=== PATIENT | female | born 2000 | race African-American/Black ===

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

== ENCOUNTER 2021-01-19 13:07 | Outpatient (REF) | payer OTHER, SELFPAY ==
--- NOTE | ~2021-01-19 | CT_ITS ---
EXAMINATION: CT HEAD WITHOUT CONTRAST CLINICAL INFORMATION: Headaches. COMPARISON: None TECHNIQUE: Contiguous axial imaging was performed from the skull base to vertex without intravenous administration of contrast. This CT examination was performed using dose optimization techniques as appropriate, variously including the following: *Automated exposure control *Adjustment of mA and/or kV according to patient size (this includes techniques or standardized protocols for targeted exams where dose is matched to indication/reason for exam; i.e. extremities or head) *Use of iterative reconstruction technique DLP: 735 mGy-cm FINDINGS: There is no evidence of acute intracranial hemorrhage or territorial infarction. No abnormal mass effect or midline shift is seen. Thorpe to white matter differentiation is well preserved. No extra-axial fluid collections are identified. The ventricles are normal in size. There is no abnormal attenuation within the brain parenchyma. The osseous structures and soft tissues are normal. The mastoid air cells and visualized portions of the paranasal sinuses are well aerated. CT/CT head/brain wo con IMPRESSION: No acute intracranial pathology.
== END 2021-01-19 13:08 | disposition home or self-care (01) ==
LOC: HO.CT 13:07
PROVIDERS: Visit Provider Internal Medicine
DX: R51.9 Headache, unspecified (principal); G89.29 Other chronic pain
CPT/HCPCS: 70450

== ENCOUNTER 2021-02-01 10:16 | Outpatient (REF) | payer OTHER, SELFPAY ==
--- NOTE | ~2021-02-01 | FL_ITS ---
EXAMINATION: FL BARIUM SWALLOW CLINICAL INFORMATION: Gastroesophageal reflux disease without esophagitis COMPARISON: None TECHNIQUE: Barium swallow examination is performed using fluoroscopic evaluation in addition to multiple fluoroscopic spot views. The patient is imaged both upright and prone and using both thick and thin sulfate along with effervescent granules. Barium tablet was also administered. Fluoroscopy time: 0.7 minutes DAP: 2.5 Gycm2 Images: 38 FINDINGS: The swallowing mechanism is normal. No aspiration or penetration is seen. Esophageal motility is normal. No hernia or reflux is seen. No mucosal abnormality, mass or stricture is seen. The barium tablet passed freely into the stomach. FL/FL barium swallow IMPRESSION: Normal barium swallow.
== END 2021-02-01 10:17 | disposition home or self-care (01) ==
LOC: HO.XRAY 10:16
PROVIDERS: PCP Internal Medicine; Visit Provider Physician Assistant
DX: K21.9 Gastro-esophageal reflux disease without esophagitis (principal); R13.10 Dysphagia, unspecified
CPT/HCPCS: 74220

== ENCOUNTER 2021-06-22 09:34 | Outpatient (REF) | payer OTHER, SELFPAY ==
[2021-06-22 10:58] LABS: Appearance Urine CLEAR; Color Urine YELLOW; Glucose Urine UA NEG (NEG); Leukocyte Esterase Urine NEG (NEG); Nitrite Urine NEG (NEG); Specific Gravity - Urine 1.025 (1.005-1.025); UACC Culture Trigger NO; Urine Blood TRACE (NEG); Urine Ketones NEG (NEG); Urine Protein NEG (NEG-TRACE)
[2021-06-22 10:59] LABS: Hematocrit 41.3 % (37.0-47.0); Hemoglobin 12.8 g/dl (12.0-16.0); Mean Corpuscular Hemoglobin 27.2 pg (27.0-33.0); Mean Corpuscular Volume 87.7 fL (80.0-98.0); Mean Platelet Volume 10.4 fL (9.4-12.3); Platelet Count 299 X10*3/uL (160-400); Red Blood Count 4.71 X10*6/uL (4.20-5.50); Red Cell Distribution Width 13.1 % (11.0-16.0); White Blood Count 5.6 X10*3/uL (4.8-10.8)
[2021-06-22 11:20] LABS: Bacteria Urine 1+ /LPF; Mucus Urine TRACE /LPF; RBC Urine 0-2 /HPF (0); Squamous Epithelial Cell Urine TRACE /LPF; WBC Urine 0 /HPF (0-4)
[2021-06-22 11:28] LABS: Alanine Aminotransferase 55 U/L (0-31); Albumin Level 4.4 g/dL (3.5-5.0); Alkaline Phosphatase 68 U/L (39-117); Anion Gap 12 (12-20); Aspartate Amino Transferase 25 U/L (5-31); Bilirubin Total 0.4 mg/dL (0.0-1.0); Blood Urea Nitrogen 9 mg/dL (9-16); Calcium 9.7 mg/dL (8.4-10.2); Carbon Dioxide 24 mmol/L (22-29); Chloride 108 mmol/L (96-108); Cholesterol 134 mg/dL; Estimated Glomerular Filt Rate > 60; Glucose Random 93 mg/dL (60-115); Potassium 4.6 mmol/L (3.3-5.1); Sodium 139 mmol/L (135-145); Total Protein 6.9 g/dL (6.5-8.0)
[2021-06-22 11:46] LABS: Erythrocyte Sedimentation Rate 2 MM/HR (0-20); TSH reflex Free T4 1.42 uIU/mL (0.32-4.0); Vitamin D 25-OH Total 17.3 ng/mL (>30)
[2021-06-22 12:02] LABS: Folate 11.5 ng/mL (> or = 4.0); Vitamin B12 704 pg/mL (200-900)
== END 2021-06-22 09:35 | disposition home or self-care (01) ==
LOC: HO.LAB 09:34
PROVIDERS: PCP Internal Medicine; Visit Provider Nurse Practitioner Family
DX: Z00.00 Encounter for general adult medical examination without abnormal findings (principal); R10.9 Unspecified abdominal pain; R13.10 Dysphagia, unspecified; G89.29 Other chronic pain; R51.9 Headache, unspecified
CPT/HCPCS: 36415; 80053; 81001; 82306; 82465; 82607; 82746; 84443; 85027; 85652

== ENCOUNTER 2021-09-11 09:00 | Outpatient (REF) | payer OTHER, SELFPAY ==
--- NOTE | ~2021-09-11 | FL_ITS ---
EXAMINATION: XR GI SERIES CLINICAL INFORMATION: Epigastric pain COMPARISON: Barium swallow January 2021 TECHNIQUE: Upper GI was performed using thin and thick barium and effervescent granules. FINDINGS: Esophageal motility is normal. No hernia or reflux is seen. The stomach and duodenum are normal. No fold thickening, mass, ulcer or stricture is seen. FLUOROSCOPY TIME: 0.7 minutes DOSE AREA PRODUCT: 4.9 patricia per centimeter squared. 26 saved fluoroscopic images. FL/FL upper GI series IMPRESSION: Unremarkable examination.
== END 2021-09-11 09:01 | disposition home or self-care (01) ==
LOC: HO.XRAY 09:00
PROVIDERS: PCP Internal Medicine; Visit Provider Internal Medicine
DX: R10.13 Epigastric pain (principal)
CPT/HCPCS: 74240

== ENCOUNTER → 2021-09-20 12:13 | Outpatient (BNVA) | payer OTHER, SELFPAY | PROVIDERS: PCP Internal Medicine; Visit Provider Physician Assistant | DX: K21.9 Gastro-esophageal reflux disease without esophagitis (principal); K59.00 Constipation, unspecified; K58.9 Irritable bowel syndrome, unspecified | CPT/HCPCS: 99202 ==

== ENCOUNTER 2021-10-02 14:11 | Outpatient (REF) | payer OTHER, SELFPAY ==
[2021-10-02 14:27] LABS: MANUAL DIFF FLAG NO
[2021-10-02 14:54] LABS: Basophils Absolute Auto 0.1 X10*3/uL (0.0-0.2); Basophils Percent Auto 1.3 % (0-2); Eosinophils Absolute Auto 0.1 X10*3/uL (0.0-0.4); Eosinophils Percent Auto 1.9 % (0-4); Hemoglobin 13.8 g/dl (12.0-16.0); Imm Gran Abs Auto 0.01 X10*3/uL (0.00-0.03); Imm Gran Pct Auto 0.2 % (0.0-0.4); Lymphocytes Absolute Auto 2.1 X10*3/uL (1.2-4.9); Lymphocytes Percent Auto 45.8 % (20-40); Mean Corpuscular HGB Conc 32.9 g/dl (31.0-35.0); Mean Corpuscular Hemoglobin 28.2 pg (27.0-33.0); Mean Corpuscular Volume 85.9 fL (80.0-98.0); Mean Platelet Volume 10.6 fL (9.4-12.3); Monocytes Absolute Auto 0.3 X10*3/uL (0.1-1.2); Monocytes Percent Auto 6.7 % (2-11); Neutrophils Percent Auto 44.1 % (45-73); Platelet Count 304 X10*3/uL (160-400); Red Blood Count 4.89 X10*6/uL (4.20-5.50); Red Cell Distribution Width 11.9 % (11.0-16.0); White Blood Count 4.6 X10*3/uL (4.8-10.8)
[2021-10-02 15:05] LABS: Estimated Average Glucose 103 mg/dL; Hemoglobin A1c % 5.2 %
[2021-10-02 15:26] LABS: Anion Gap 12 (12-20); Blood Urea Nitrogen 11 mg/dL (9-16); Calcium 9.9 mg/dL (8.4-10.2); Carbon Dioxide 24 mmol/L (22-29); Chloride 110 mmol/L (96-108); Cholesterol 146 mg/dL; Estimated Glomerular Filt Rate > 60; Glucose Random 95 mg/dL (60-115); HDL Cholesterol 44 mg/dL; LDL Cholesterol Calculated 89 mg/dl; Potassium 4.4 mmol/L (3.3-5.1); Sodium 142 mmol/L (135-145); Triglycerides 66 mg/dL
[2021-10-02 15:42] LABS: Insulin 12 uU/mL (2-29)
[2021-10-04 03:22] LABS: Prolactin 12.9 ng/mL
== END 2021-10-02 14:12 | disposition home or self-care (01) ==
LOC: HO.LAB 14:11
PROVIDERS: Absent Provider Nurse Practitioner Family; PCP Internal Medicine; Visit Provider Registered Nurse Psychiatric/Mental Health
DX: R79.89 Other specified abnormal findings of blood chemistry (principal); Z13.1 Encounter for screening for diabetes mellitus; Z13.220 Encounter for screening for lipoid disorders
CPT/HCPCS: 36415; 80048; 80061; 82306; 83036; 83525; 84146; 85025

== ENCOUNTER → 2021-11-15 13:23 | Outpatient (BNVA) | payer OTHER, SELFPAY | PROVIDERS: PCP Internal Medicine; Visit Provider Physician Assistant | DX: K58.9 Irritable bowel syndrome, unspecified (principal); K59.00 Constipation, unspecified; R79.89 Other specified abnormal findings of blood chemistry | CPT/HCPCS: 99212 ==

== ENCOUNTER 2022-01-25 11:59 | Outpatient (REF) | payer OTHER, SELFPAY ==
[2022-01-25 13:37] LABS: Estimated Average Glucose 100 mg/dL; Hemoglobin A1c % 5.1 %
[2022-01-25 13:46] LABS: Anion Gap 16 (12-20); Blood Urea Nitrogen 12 mg/dL (9-16); Calcium 9.5 mg/dL (8.4-10.2); Carbon Dioxide 20 mmol/L (22-29); Chloride 108 mmol/L (96-108); Cholesterol 138 mg/dL; Estimated Glomerular Filt Rate > 60; Glucose Random 88 mg/dL (60-115); HDL Cholesterol 43 mg/dL; LDL Cholesterol Calculated 84 mg/dl; Potassium 4.7 mmol/L (3.3-5.1); Sodium 139 mmol/L (135-145); Triglycerides 55 mg/dL
[2022-01-25 14:06] LABS: Insulin 5 uU/mL (2-29)
[2022-01-25 17:14] LABS: Alanine Aminotransferase 23 U/L (0-31); Albumin Level 4.5 g/dL (3.5-5.0); Alkaline Phosphatase 84 U/L (39-117); Aspartate Amino Transferase 18 U/L (5-31); Bilirubin Total 0.8 mg/dL (0.0-1.0); Total Protein 7.1 g/dL (6.5-8.0)
[2022-01-27 15:41] LABS: Prolactin 28.7 ng/mL
== END 2022-01-25 12:00 | disposition home or self-care (01) ==
LOC: HO.LAB 11:59
PROVIDERS: Absent Provider Physician Assistant; PCP Internal Medicine; Visit Provider Registered Nurse Psychiatric/Mental Health
DX: F90.2 Attention-deficit hyperactivity disorder, combined type (principal); F41.1 Generalized anxiety disorder; Z79.899 Other long term (current) drug therapy
CPT/HCPCS: 36415; 80048; 80053; 80061; 83036; 83525; 84146

== ENCOUNTER → 2022-02-14 11:59 | Outpatient (BNVA) | payer OTHER, SELFPAY | PROVIDERS: PCP Internal Medicine; Visit Provider Physician Assistant | DX: K58.9 Irritable bowel syndrome, unspecified (principal) | CPT/HCPCS: 99212 ==

== ENCOUNTER 2022-09-11 11:05 | Outpatient (REF) | payer OTHER, SELFPAY ==
[2022-09-11 11:53] LABS: Estimated Average Glucose 97 mg/dL
[2022-09-11 12:09] LABS: Anion Gap 10 (12-20); Blood Urea Nitrogen 8 mg/dL (9-16); Calcium 9.5 mg/dL (8.4-10.2); Carbon Dioxide 23 mmol/L (22-29); Chloride 112 mmol/L (96-108); Estimated Glomerular Filt Rate > 60; Glucose Random 102 mg/dL (60-115); Sodium 141 mmol/L (135-145)
[2022-09-11 12:27] LABS: Insulin 14 uU/mL (2-29)
== END 2022-09-11 11:06 | disposition home or self-care (01) ==
LOC: HO.LAB 11:05
PROVIDERS: PCP Internal Medicine; Visit Provider Registered Nurse Psychiatric/Mental Health
DX: F90.2 Attention-deficit hyperactivity disorder, combined type (principal); F43.10 Post-traumatic stress disorder, unspecified; Z79.899 Other long term (current) drug therapy
CPT/HCPCS: 36415; 80048; 83036; 83525; 84146

== ENCOUNTER 2022-09-13 13:49 | Outpatient (REF) | payer OTHER, SELFPAY ==
[2022-09-13 14:15] LABS: MANUAL DIFF FLAG NO
[2022-09-13 14:30] LABS: Basophils Absolute Auto 0.1 X10*3/uL (0.0-0.2); Basophils Percent Auto 1.1 % (0-2); Eosinophils Absolute Auto 0.1 X10*3/uL (0.0-0.4); Eosinophils Percent Auto 1.8 % (0-4); Hematocrit 40.6 % (37.0-47.0); Hemoglobin 13.1 g/dl (12.0-16.0); Imm Gran Abs Auto 0.02 X10*3/uL (0.00-0.03); Imm Gran Pct Auto 0.4 % (0.0-0.4); Lymphocytes Absolute Auto 1.8 X10*3/uL (1.2-4.9); Lymphocytes Percent Auto 31.4 % (20-40); Mean Corpuscular HGB Conc 32.3 g/dl (31.0-35.0); Mean Corpuscular Hemoglobin 27.9 pg (27.0-33.0); Mean Corpuscular Volume 86.6 fL (80.0-98.0); Mean Platelet Volume 10.3 fL (9.4-12.3); Monocytes Absolute Auto 0.4 X10*3/uL (0.1-1.2); Monocytes Percent Auto 6.3 % (2-11); Neutrophils Absolute Auto 3.4 x10*3/uL (2.0-8.3); Platelet Count 284 X10*3/uL (160-400); Red Blood Count 4.69 X10*6/uL (4.20-5.50); Red Cell Distribution Width 12.1 % (11.0-16.0); White Blood Count 5.7 X10*3/uL (4.8-10.8)
[2022-09-13 14:39] LABS: Appearance Urine Clear; Color Urine Yellow; Glucose Urine UA Negative (Negative); Leukocyte Esterase Urine Negative (Negative); Nitrite Urine Negative (Negative); Specific Gravity - Urine <= 1.005 (1.005-1.025); Urine Blood Negative (Negative); Urine Ketones Negative (Negative); Urine Protein Negative (Neg-Trace)
[2022-09-13 15:12] LABS: Alanine Aminotransferase 26 U/L (0-31); Albumin Level 4.4 g/dL (3.5-5.0); Alkaline Phosphatase 73 U/L (39-117); Anion Gap 14 (12-20); Aspartate Amino Transferase 18 U/L (5-31); Bilirubin Total 0.5 mg/dL (0.0-1.0); Blood Urea Nitrogen 9 mg/dL (9-16); Calcium 9.7 mg/dL (8.4-10.2); Carbon Dioxide 24 mmol/L (22-29); Chloride 107 mmol/L (96-108); Cholesterol 141 mg/dL; Estimated Glomerular Filt Rate > 60; Glucose Fasting 94 mg/dL (60-99); HDL Cholesterol 50 mg/dL; LDL Cholesterol Calculated 82 mg/dl; Potassium 4.5 mmol/L (3.3-5.1); Sodium 140 mmol/L (135-145); Total Protein 7.1 g/dL (6.5-8.0); Triglycerides 45 mg/dL
[2022-09-13 15:28] LABS: TSH reflex Free T4 0.58 uIU/mL (0.32-4.0); Vitamin D 25-OH Total 25.3 ng/mL (>30)
== END 2022-09-13 13:50 | disposition home or self-care (01) ==
LOC: HO.LAB 13:49
PROVIDERS: PCP Internal Medicine; Visit Provider Internal Medicine
DX: Z00.00 Encounter for general adult medical examination without abnormal findings (principal); K59.00 Constipation, unspecified; R30.0 Dysuria; E55.9 Vitamin D deficiency, unspecified; E78.00 Pure hypercholesterolemia, unspecified
CPT/HCPCS: 36415; 80053; 80061; 81003; 82306; 84443; 85025

== ENCOUNTER 2022-11-28 10:54 | Outpatient (AMB) | payer OTHER, SELFPAY ==
[2022-11-28 12:56] VITALS: BP 118/66; PULSE 94; TEMP 37.1; O2SAT 98
--- NOTE | 2022-11-28 12:56 | MHC.OFFWIV ---
Intake Vital Signs 11/28/22 12:56 Weight 65.771 kg BP 118/66 Blood Pressure Location Lt brachial Position Sitting Pulse 94 Pulse Source Pulse Oximeter Temp 98.7 F Temp Source Temporal Artery Scan Pulse Oximetry (%) 98 Oxygen Delivery Method Room Air Intake Visit Reasons: EP, cough, headache, covid +(11/27) [phone] Patient Tobacco Use Status: Never used Tobacco Allergies peanut Allergy (Severe, Verified 09/13/22 13:33) Nausea and Vomiting Seasonal Allergies Allergy (Severe, Verified 09/13/22 13:33) Eye Swelling walnut Allergy (Severe, Verified 09/13/22 13:33) Difficulty Swallowing grass pollen-perennial rye, standar Allergy (Unknown, Verified 09/13/22 13:33) Cough HPI HPI Comments History of Present Illness Details 22-year-old female presents with fatigue, malaise, frontal headache described as tightness (no visual changes or dizziness), dry cough, ear ache, myalgias for the past 2 days, symptoms have been particularly bad these last 5 days, patient reports mother at home is sick with similar symptoms. She reports yesterday she took a COVID test at home which is positive. Patient denies chest pain, nausea, vomiting, abdominal pain, diarrhea, changes in urinary habits, vision changes, dizziness. Eating and drinking well. Vaccinated with vaccine x3 Physical exam benign. Breath sounds clear. Regular rate and rhythm. Abdomen soft nontender nondistended. Neuro exam nonfocal. NIH stroke scale 0 Likely COVID-19 versus viral illness. Unlikely stroke, posterior stroke, pneumonia, PE, ACS, intracranial hemorrhage Discussed paxlovid w/ patient, patient's symptoms mild choosing not to take Requesting inhaler will given inhaler. Educated on supportive measures and CDC guidelines. Educated patient on diagnosis and treatment plan, answered all question, patient verbalizes understanding. At this time patient will be discharged home, advised to return with new or worsening symptoms. Educated on worrisome signs and symptoms and when to return. At this time I feel comfortable discharge home. [facility] Medical History ADHD Allergic rhinitis Attention deficit hyperactivity disorder (ADHD) Elevated LFTs Environmental allergies Migraines Overweight (BMI 25.0-29.9) Schizophrenia Vitamin D deficiency Surgical History History of appendectomy Hx of wisdom tooth extraction Family History Mother No problems noted. Father No problems noted. Social History Housing: House Alcohol intake: never Patient Tobacco Use Status: Never used Tobacco e-Cigarette/Vaping Use: Never Used Second Hand Smoke Exposure: Yes service: No Current occupational status: student Cognitive needs: No Hearing needs: No Vision needs: Yes Review of Systems Const Details: Constitutional : No Weight loss, No Fever, No Chills, + Fatigue, + Malaise ENT/Mouth : No sore throat, No Rhinorrhea Eyes: No Eye Pain, No Swelling, No Redness Cardiovascular : No Chest Pain, No SOB, No Dyspnea on Exertion, No Orthopnea, No Edema, No Palpitations Respiratory : + Cough, No Sputum, No Wheezing Gastrointestinal : No Nausea, No Vomiting, No Diarrhea, No Constipation, No abdominal Pain, No Hematochezia, No Melena Genitourinary : No Dysuria, No Urinary Frequency, No Hematuria, Musculoskeletal : No joint pain, No Myalgias, No Joint Swelling Skin : No Skin Lesions, No rash Neuro : No Weakness, No Numbness, No Dizziness, + Headache Psych : No Anxiety/Panic, No Depression All other systems reviewed and are negative All systems reviewed & are unremarkable except as noted in HPI and below Physical Exam Vital Signs: Last Vital Signs Temp 98.7 F 11/28/22 12:56 Pulse 94 11/28/22 12:56 BP 118/66 11/28/22 12:56 Pulse Ox 98 11/28/22 12:56 Oxygen Delivery Method Room Air 11/28/22 12:56 Vital signs stable Appearance: Alert.? Oriented X3.? No acute distress.? Head: Normocephalic, atraumatic, no step-offs or deformities Eyes: Pupils equal, round and reactive to light.? CVS: Normal heart rate and rhythm.? Pulses normal.? Respiratory: No respiratory distress.? Breath sounds normal.? Abdomen: Soft and nontender.? Skin: Skin warm and dry.? Normal skin color.? Normal skin turgor.? Extremities: No lower extremity edema.? No calf ttp. 5/5 strength to bilateral upper and lower extremities Neuro: Oriented X 3.? No motor deficit.? No sensory deficit. CN 2-12 intact Assessment & Plan Assessment & Plan (1) COVID-19: Code(s): U07.1 - COVID-19 Plan Take your medications as prescribed. If you were prescribed antibiotics today, it is important that you take your medication to their entirety, do not skip any doses, do not finish them early. Today you tested positive for COVID-19. Take Ibuprofen or Tylenol as needed for fevers or body aches. Quarantine for 5 days and ensure you wear a mask. After 5 days you should wear a mask for 5 days after that. Practice social distancing and good hand hygiene. Drink plenty of fluids. Follow-up with your primary care provider this week. Return to the emergency department with new or worsening symptoms. In case of emergency call 911 You can purchase a pulse oximeter from your local pharmacy or grocery store, and monitor your oxygen saturation if it goes below 94% you should return to the emergency department for further evaluation. Coding Level of Care Code Est Pt Level 3 (21961) Diagnoses COVID-19 U07.1
== END 2022-11-28 14:06 | disposition home or self-care (01) ==
PROVIDERS: PCP Internal Medicine; Visit Provider Physician Assistant
DX: U07.1 COVID-19 (principal)
CPT/HCPCS: 99213

== ENCOUNTER 2023-01-24 15:04 | Outpatient (AMB) | payer OTHER, SELFPAY ==
[2023-01-24 15:08] VITALS: BP 110/60; BMI 25.2
--- NOTE | 2023-01-24 15:08 | A.OFFVIS_ITS ---
Intake Vital Signs 01/24/23 15:08 Height 5 ft 3 in Weight 142 lb BMI 25.2 BP 110/60 Intake Visit Reasons: New patient Irregular menses Project Account Manager Required: No Information Interpreted: clinical only Spool Sander: Spool Sander Present Allergies peanut Allergy (Severe, Verified 01/24/23 15:10) Nausea and Vomiting Seasonal Allergies Allergy (Severe, Verified 01/24/23 15:10) Eye Swelling walnut Allergy (Severe, Verified 01/24/23 15:10) Difficulty Swallowing grass pollen-perennial rye, standar Allergy (Unknown, Verified 01/24/23 15:10) Cough Medication List - Last Reconciled 01/24/23 by Deysi Dobbs CNM azelastine 0.05% 1 drp ophthalmic (eye) BID PRN cetirizine 10 mg PO DAILY clonidine HCl 0.2 mg PO BEDTIME dexmethylphenidate ER (Focalin XR) 10 mg PO DAILY diazepam 2 mg PO ONCE PRN etonogestrel (Nexplanon) subdermal famotidine 20 mg PO BEDTIME 30 days fluticasone propionate 50 mcg/actuation 0 mcg intranasal methylcellulose (laxative) (Citrucel) 500 mg PO BID 30 days norgestrel-ethinyl estradiol 0.3-30 mg-mcg (Low-Ogestrel (28)) 1 tab PO DAILY olanzapine 7.5 mg PO BEDTIME omeprazole 40 mg PO DAILY 30 days simethicone (Gas Relief (simethicone)) 80 mg PO TID-QID PRN topiramate 25 mg PO BEDTIME Is last menstrual period known: Yes (last, period start 12/12/22 & stop 01/06/23) Last menstrual period: 12/12/22 Post menopausal: No Do you need a note to return to daycare/school/sports/work: No HPI New patient Irregular menses HPI Details Patient is here because she had had some irregular bleeding that started in December and was lasting through the beginning of January. She has her 2nd Nexplanon in that was inserted last year and she has been bleeding a lot with this Nexplanon it was inserted it [facility]. She went straight from 1 Nexplanon to the next 1. She had an appointment he scheduled she says in December for a Pap smear but it got rescheduled and she tells me at the end of the visit that is somehow she thought that is what this appointment was going to before but initially we talked about the bleeding that she was having on the Nexplanon. She ended up going to [facility] and they gave her control pills and told her to take 2 packs of them but to skip the placebo pills at the end of the 1st pack and go straight from 1 pack to the next. She did get migraines when she started taking the pills and she called her neurologist and he said that it was okay for her to take them. She says that the bleeding stopped after taking the pills for a week. She is now completed 2 weeks of pills and she she is probably going to continue to take them for the full 6 weeks as recommended by [facility]. Discussed that since she has not actually scheduled for an annual exam today and that was not what was planned I described for her what I would be doing for an annual exam and testing that she would need to have both Pap smear and checking for STDs and discussed the rest a the exam and she does not have any further questions now but will schedule the next exam as an annual exam and I wrote it clearly on the piece of paper. Discussed that had she come here we would probably have given her a pack of control pills just as [facility] did and that I concur with their management, though I might have only given the 1 pack. [facility] Medical History Vitamin D deficiency Overweight (BMI 25.0-29.9) Attention deficit hyperactivity disorder (ADHD) Allergic rhinitis Environmental allergies Schizophrenia ADHD Elevated LFTs Migraines Surgical History Hx of wisdom tooth extraction History of appendectomy Family History Mother No problems noted. Father No problems noted. Social History Housing: House Alcohol intake: never Patient Tobacco Use Status: Never used Tobacco e-Cigarette/Vaping Use: Never Used Second Hand Smoke Exposure: Yes service: No Current occupational status: student Cognitive needs: No Hearing needs: No Vision needs: Yes Female Reproductive History Menstrual Date of last menstrual period: 12/12/22 control method: implanted (nexplanon) Physical Exam Vital Signs: Last Vital Signs BP 110/60 01/24/23 15:08 BMI result Body Mass Index 25.2 Const Other: In frame normotensive Nexplanon easily palpable in left arm. Results AMB Test Urine AMB Test Urine Negative Last Edit by Manuel Quesada CMA on 01/24/23 15:25 Results Reviewed Results Reviewed: Laboratory Last Values [facility] Negative 01/24/23 15:24 Assessment & Plan Assessment & Plan (1) Irregular menstrual cycle: Code(s): N92.6 - Irregular menstruation, unspecified (2) Breakthrough bleeding on Nexplanon: Code(s): N92.1 - Excessive and frequent menstruation with irregular cycle; Z97.5 - Presence of (intrauterine) contraceptive device Plan Patient is here because she had had some irregular bleeding that started in December and was lasting through the beginning of January. She has her 2nd Nexplanon in that was inserted last year and she has been bleeding a lot with this Nexplanon it was inserted it [facility]. She went straight from 1 Nexplanon to the next 1. She had an appointment he scheduled she says in December for a Pap smear but it got rescheduled and she tells me at the end of the visit that is somehow she thought that is what this appointment was going to before but initially we talked about the bleeding that she was having on the Nexplanon. She ended up going to [facility] and they gave her control pills and told her to take 2 packs of them but to skip the placebo pills at the end of the 1st pack and go straight from 1 pack to the next. She did get migraines when she started taking the pills and she called her neurologist and he said that it was okay for her to take them. She says that the bleeding stopped after taking the pills for a week. She is now completed 2 weeks of pills and she she is probably going to continue to take them for the full 6 weeks as recommended by [facility]. Discussed that since she has not actually scheduled for an annual exam today and that was not what was planned I described for her what I would be doing for an annual exam and testing that she would need to have both Pap smear and checking for STDs and discussed the rest a the exam and she does not have any further questions now but will schedule the next exam as an annual exam and I wrote it clearly on the piece of paper. Discussed that had she come here we would probably have given her a pack of control pills just as [facility] did and that I concur with their management, though I might have only given the 1 pack. Orders: Orders AMB HCG Urine Test Today N92.6 - Irregular menstruation, unspecified Coding Level of Care Code New Pt Level 3 (26784) Diagnoses Irregular menstrual cycle N92.6 Breakthrough bleeding on Nexplanon N92.1; Z97.5
== END 2023-01-24 15:44 | disposition home or self-care (01) ==
PROVIDERS: PCP Internal Medicine; Visit Provider Advanced Practice Midwife
DX: N92.6 Irregular menstruation, unspecified (principal); Z97.5 Presence of (intrauterine) contraceptive device
CPT/HCPCS: 99203

== ENCOUNTER → 2023-01-24 15:04 | Outpatient (BNVA) | payer OTHER, SELFPAY | PROVIDERS: PCP Internal Medicine; Visit Provider Advanced Practice Midwife | DX: N92.6 Irregular menstruation, unspecified (principal); G43.109 Migraine with aura, not intractable, without status migrainosus; Z97.5 Presence of (intrauterine) contraceptive device | CPT/HCPCS: 81025 ==

== ENCOUNTER 2023-05-13 09:17 | Outpatient (AMB) | payer OTHER, SELFPAY ==
[2023-05-13 09:21] VITALS: BP 100/60; BMI 25.3
--- NOTE | 2023-05-13 09:21 | A.OFFVIS_ITS ---
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: Insurance Sales Manager Present Allergies peanut Allergy (Severe, Verified 05/13/23 09:21) Nausea and Vomiting Seasonal Allergies Allergy (Severe, Verified 05/13/23 09:21) Eye Swelling walnut Allergy (Severe, Verified 05/13/23 09:21) Difficulty Swallowing grass pollen-perennial rye, standar Allergy (Unknown, Verified 05/13/23 09:21) Cough Medication List - Last Reconciled 05/13/23 by Deysi Dobbs CNM azelastine 0.05% 1 drp ophthalmic (eye) BID PRN cetirizine 10 mg PO DAILY clonidine HCl 0.2 mg PO BEDTIME dexmethylphenidate ER (Focalin XR) 10 mg PO DAILY diazepam 2 mg PO ONCE PRN famotidine 20 mg PO BEDTIME 30 days fluticasone propionate 50 mcg/actuation 0 mcg intranasal methylcellulose (laxative) (Citrucel) 500 mg PO BID 30 days olanzapine 7.5 mg PO BEDTIME omeprazole 40 mg PO DAILY 30 days topiramate 25 mg PO BEDTIME Is last menstrual period known: Yes Last menstrual period: 05/05/23 Do you need a note to return to daycare/school/sports/work: No 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 She is 22 years old she is illness stable monogamous relationship. She was having a lot of breakthrough bleeding on the Nexplanon and she was given control pills to take for 2 months and as soon as she finished with them the bleeding started again this management was through [facility] though she also paid a visit here. So she returned to [facility] and they remove the Nexplanon it was her 2nd Nexplanon she is for now using condoms and she seems to be doing well with them she had been on the Nexplanon since she was 18 and she thinks she got her 1st period on the it ended on the . It was pretty uncomfortable and crampy and it felt like a real period to her. She is about to graduate from college and she is has been studying in the [employer] field and is looking for a job. If she got she probably would have the baby though she does not feel personally ready to have a baby right now she has a supportive environment around her. She knows that she could not have an . She says her partner is very good about using condoms as well. [facility] Medical History Vitamin D deficiency Overweight (BMI 25.0-29.9) Attention deficit hyperactivity disorder (ADHD) Allergic rhinitis Environmental allergies Schizophrenia ADHD Elevated LFTs Migraines Surgical History Hx of wisdom tooth extraction History of appendectomy Family History Mother No problems noted. Father No problems noted. Social History Housing: House Alcohol intake: never Patient Tobacco Use Status: Never used Tobacco e-Cigarette/Vaping Use: Never Used Second Hand Smoke Exposure: Yes service: No Current occupational status: student Cognitive needs: No Hearing needs: No Vision needs: Yes Female Reproductive History Menstrual Age of Menarche: 12 Duration of menses: 6-7 days Date of last menstrual period: 05/05/23 control method: none Total pregnancies: 0 History of abnormal pap smear: No (no previous pap) Physical Exam Vital Signs: Last Vital Signs BP 100/60 05/13/23 09:21 BMI result Body Mass Index 25.3 Const General: healthy appearing, comfortable, no acute distress, well developed and alert Nutritional Appearance: average body habitus Orientation/consciousness: patient oriented x3 Limitations: no limitations HEENT Head: Yes normocephalic Neck Neck: Yes normal visual inspection Chest Chest palpation & inspection: normal inspection of the chest Breast/axilla inspection: normal inspection of the breasts and normal inspection of the axillae Breast/axilla palpation: normal palpation of the breasts and normal palpation of the axillae Resp Effort & Inspection: normal respiratory effort GI Inspection: Yes normal to inspection, No Abdominal wall edema and No distended Palpation (GI): Soft to palpation and nontender Other: External exam completely within normal limits vagina pink and moist nulliparous cervix is perfectly pink smooth round healthy nonfriable no abnormal discharge whatsoever uterus is small midposition nontender adnexa nontender good tone with Kegel.. General: Yes bladder normal to palpation External Female Exam: normal external appearance and normal appearance of the urethra Speculum Exam - Vagina: normal appearance of the vagina, normal palpation and normal vaginal discharge Speculum Exam - Cervix: normal appearance of the cervix, normal palpation and nontender Bimanual exam- vagina & uterus: normal bimanual exam, normal palpation, uterine size normal, bladder normal to palpation, consistency normal, normal palpation, uterine mobility normal, uterine shape normal, No Cervical tenderness present, non-tender and no cervical motion tenderness Bimanual Exam- Adnexa, other: normal adnexae, no masses, normal and No adnexal tenderness Neuro General: patient oriented x3 Assessment & Plan Assessment & Plan (1) Cervical cancer screening: Code(s): Z12.4 - Encounter for screening for malignant neoplasm of cervix (2) Well woman exam with routine gynecological exam: Code(s): Z01.419 - Encounter for gynecological examination (general) (routine) without abnormal findings (3) Encounter for screening examination for sexually transmitted disease: Code(s): Z11.3 - Encounter for screening for infections with a predominantly sexual mode of transmission (4) control counseling: Code(s): Z30.09 - Encounter for other general counseling and advice on contraception Plan -----Discussed in this visit the following: healthy balanced diet, regular and consistent exercise, getting recommended health screens, doing the best she can for her particular health concerns, kegel exercises, pap smear screening and followup recommendations, mammography screening and SBE, normal changes in cycles in her life stage--- .----I reviewed available options for Control Methods and their associated side effect profiles. In particular, we discussed the method most of interest to her. I reviewed with her the usual components of a pelvic exam.? I explained the tool called the speculum and how it is used to help us see her cervix and check for infections with Q-tips, that we then send to the lab in tubes, and also how we do a Pap smear and what that is checking for.? Discussed the reasons for doing these tests.? Also discussed how infections are transmitted from 1 person to another, but also how some infections can just be an imbalance in a bacteria or fungus in the vagina as and that the exam is a way to tell what is going on.? Also discussed reasons why somebody might not need to have an exam at this particular time.? Also discussed what we check for when we are doing a bimanual exam, (checking ovaries and cervix and uterus, and muscles).? I showed her the speculum and offered a mirror so that she can watch during the exam as well. Discussed relaxing during the exam, and that while it may be a little bit uncomfortable, as it is invasive, but that it should not hurt, and if she feels like it is hurting, then that that is a reason to stop if she does not feel comfortable.? Discussed that while doing these exams are necessary to help figure things out, and also to do some screening tests at certain important times, they are not always necessary and do not always have to be done just because they are scheduled.? First Pap smear would be at age 22, and testing for sexually transmitted infection and should occur any time somebody is at risk for having been exposed.? Any time someone has itching, burning, a bad smell, or some other concern about their vaginal area, is a time to be checked as well. In the end, having a vaginal or speculum exam is a method of checking the most private and sensitive part of a Women's body and it should always be done with the woman herself in full control. Discussed the normal menstrual cycles, in terms of length of time for each part of the cycle, range of experiences for bleeding/periods, cramping and clots and the various ways of handling all of these including the various menstrual products available today and common use of non inflammatory medications such as ibuprofen to help with the cramping, and changes in vaginal and cervical discharge that occur throughout the changes in the menstrual cycle. Also discussed what is happening in the ovaries, with preparing to ovulate, ovulation, and what happens afterward as well. Discussed signs of ovulation including fertile appearing mucus, libido changes, breast changes, ovulatory pain and twinges, and the optimal /most risky times to become . Reviewed that menstrual cycles do not obey the printed calendar, but rather follow the body's own cycle discussed what can sometimes happen if the cycle is interrupted by other health events such as anovulatory cycles. Discussed other metabolic changes that have a very profound effect on menstrual cycles including weight and the increased hormones that occur in that setting. Discussed signals of ovulation and being aware of what is going on in her cycle to boost her own control of her own fertility as much as possible in terms of decision making. For now she is happy using condoms and discussed the challenges and possible use of plan B should 1 break or fall off. The patient is also wondering if she needs to return I reviewed the reasons for annual exams and what we do and that we would discuss many of these same topics again and offer testing for STIs and control method discussion if she needed that. However since she is also attending care at [facility] where the [facility] care is offered she can make her choice to go to 1 or the other and she does not need to duplicate care if she does not wish to. Additionally she would not be due for another Pap smear for 3 years if this 1 is normal and she is going to double check about her immunization records. I wished her luck in her job [employer]. We may see her in 1 year or p.r.n. Pap smear was done testing for gonorrhea chlamydia trichomoniasis Gardnerella and Temitope was done. Patient did not feel she needed to get other blood work for other STDs such as HIV hep B hep C and syphilis. Coding Level of Care Code Est Pt Prev Care [id number]) Diagnoses Cervical cancer screening Z12.4 Well woman exam with routine gynecological exam Z01.419 Encounter for screening examination for sexually transmitted disease Z11.3 control counseling Z30.09
== END 2023-05-13 10:06 | disposition home or self-care (01) ==
LOC: HO.HWSM 09:17
PROVIDERS: PCP Internal Medicine; Visit Provider Advanced Practice Midwife
DX: Z12.4 Encounter for screening for malignant neoplasm of cervix (principal); Z01.419 Encounter for gynecological examination (general) (routine) without abnormal findings; Z11.3 Encounter for screening for infections with a predominantly sexual mode of transmission; Z30.09 Encounter for other general counseling and advice on contraception
CPT/HCPCS: 99395

== ENCOUNTER 2023-05-13 09:17 | Outpatient (REF) | payer OTHER, SELFPAY ==
[2023-05-14 11:09] LABS: CT PCR NOT DETECTED (Not Detect.); NG PCR NOT DETECTED (Not Detect.)
[2023-05-14 13:41] LABS: BV Int Neg Control Negative (Negative); BV Int Pos Control Positive (Positive)
== END 2023-05-13 09:18 | disposition home or self-care (01) ==
LOC: HO.LAB 09:17
PROVIDERS: PCP Internal Medicine; Visit Provider Advanced Practice Midwife
DX: Z01.419 Encounter for gynecological examination (general) (routine) without abnormal findings (principal); Z20.2 Contact with and (suspected) exposure to infections with a predominantly sexual mode of transmission
CPT/HCPCS: 0353U; 87480; 87510; 87660; 88142; 99395

== ENCOUNTER 2023-09-15 17:29 | Outpatient (AMB) | payer OTHER, SELFPAY ==
[2023-09-15 17:32] VITALS: BP 132/60; PULSE 97; O2SAT 99; BMI 26.3
--- NOTE | 2023-09-15 17:32 | A.OFFPC_ITS ---
Vital Signs 09/15/23 17:32 Height 5 ft 3 in Weight 148 lb 4 oz BMI 26.3 BP 132/60 Blood Pressure Location Lt brachial Position Sitting Pulse 97 Pulse Source Pulse Oximeter Pulse Oximetry (%) 99 Oxygen Delivery Method Room Air Intake Visit Reasons: Annual physical Intake Note: Patient is here today for a physical. 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 Accompanied by: Self / Same As Patient Allergies peanut Allergy (Severe, Verified 09/15/23 17:48) Nausea and Vomiting Seasonal Allergies Allergy (Severe, Verified 09/15/23 17:48) Eye Swelling walnut Allergy (Severe, Verified 09/15/23 17:48) Difficulty Swallowing grass pollen-perennial rye, standar Allergy (Unknown, Verified 09/15/23 17:48) Cough Medication List - Last Reconciled 09/15/23 by Tobias Quinteros MD azelastine 0.05% 1 drp ophthalmic (eye) BID PRN cetirizine 10 mg PO DAILY clonidine HCl 0.2 mg PO BEDTIME dexmethylphenidate ER (Focalin XR) 10 mg PO DAILY diazepam 2 mg PO ONCE PRN famotidine 20 mg PO BEDTIME 30 days fluticasone propionate 50 mcg/actuation 0 mcg intranasal olanzapine 7.5 mg PO BEDTIME omeprazole 40 mg PO DAILY 30 days topiramate 25 mg PO BEDTIME Tobacco use date assessed: 09/15/23 Dental Screening Dental Screen Date: 09/15/23 Did you have a dental visit in the last 12 months?: No Did you have a dental problem in the last 6 months where you did not have access to dental care?: No Was dental information given to patient?: Patient has dentist HPI Annual physical HPI Details Patient comes in today for her annual physical examination States that she feels okay States that she has been experiencing recurrent headaches for the past couple of months ever since she had her Depo Provera injection recently - states that her contraceptive has since been changed Relates that her Topiramate dosage was increased from 25 to 50 mg Q HS by neurology a couple of months ago to help relieve her headaches but relates that she has been experiencing frequent dizziness since She was just seen by neurology earlier today for follow up and her Topiramate dosage was decreased back to 25 mg Q HS by neurology She denies any chest pains, no SOB No nausea/vomiting, no abdominal pain No change in bowel habits noted She denies any acute urinary symptoms States that her mood disorder and attention deficit remain adequately controlled on her current Rx - she continues to follow up with her psychiatrist regularly She is up-to-date with her annual pap smear and gynecology exam - these were last done in May 2023 [facility] Medical History Vitamin D deficiency Overweight (BMI 25.0-29.9) Attention deficit hyperactivity disorder (ADHD) Allergic rhinitis Environmental allergies Schizophrenia ADHD Elevated LFTs Migraines Surgical History Hx of wisdom tooth extraction History of appendectomy Family History Mother No problems noted. Father No problems noted. Social History Housing: House Alcohol intake: never Patient Tobacco Use Status: Never used Tobacco e-Cigarette/Vaping Use: Never Used Second Hand Smoke Exposure: Yes Substance Use Type: Marijuana service: No Current occupational status: student Cognitive needs: No Hearing needs: No Vision needs: Yes Female Reproductive History Menstrual Age of Menarche: 12 Questionnaire PHQ-9 Over the last 2 weeks, how often have you been bothered by any of the following problems? 1. Little interest or pleasure in doing things: more than half the days 2. Feeling down, depressed, or hopeless: more than half the days 3. Trouble falling or staying asleep, or sleeping too much: nearly every day 4. Feeling tired or having little energy: nearly every day 5. Poor appetite or overeating: several days 6. Feeling bad about yourself - or that you are a failure or have let yourself or your family down: several days 7. Trouble concentrating on things, such as reading the newspaper or watching television: nearly every day 8. Moving or speaking so slowly that other people could have noticed. Or the opposite - being so fidgety or restless that you have been moving around a lot more than usual: several days 9. Thoughts that you would be better off or of hurting yourself in some way: several days Total score: 17 Depression Screening Interpretation: Positive Depression Screening Follow-up: Existing condition and In treatment Depression Screening Done: Yes 07060 - PHQ-9 Billing: Yes Source: Developed by Drs. Gus Sandoval, Aurelia Rice, Balaji Mason and colleagues, with an educational shoaib from [employer]. Thrive Questionnaire Date Thrive assessed: 09/15/23 I am a: Patient What is your living situation today?: I have a steady place to live Within the past 12 months, did the food you bought not last and you didn't have the money to get more?: Never true Within the past 12 months, did you worry whether your food would run out before you got money to buy more?: Never true Do you have trouble paying for medicines?: No Do you have trouble paying your heating and electricity bill?: No Do you have trouble taking care of your child, family member or friend?: No Do you have trouble with day-to-day activities such as bathing, preparing meals, shopping, managing finances, etc.?: No Are you currently unemployed and looking for a job?: No Are you interested in more education?: No Please select the resources that you would like help with: None Currently or been in a relationship where the following occur: no concerns reported THRIVE Score: 0 AUDIT C Alcohol Use Questionnaire (AUDIT-C) 1. How often do you have a drink containing alcohol?: 2-4 times a month 2. How many drinks containing alcohol do you have on a typical day when you are drinking?: 5 or 6 3. How often do you have six or more drinks on one occasion?: Never Total Score: 4 Score Reviewed/Action Taken: Yes KANE-7 AMB Questionnaire KANE-7 Date KANE - 7 assessed: 09/15/23 Feeling nervous, anxious, or on edge: 3 = Nearly every day Not being able to stop or control worryin = Nearly every day Worrying too much about different things: 3 = Nearly every day Trouble relaxin = Nearly every day Being so restless that it is hard to sit still: 2 = More than half the days Becoming easily annoyed or irritable: 3 = Nearly every day Feeling afraid as if something awful might happen: 2 = More than half the days Total KANE-7 score (0-4 normal; 5-9 mild; 10-14 moderate; 15-21 severe): 19 Source: Developed by Drs. Gus Sandoval, Aurelia Rice, Balaji Mason and colleagues, with an educational shoaib from [employer]. KANE-7 Assessment Billing KANE-7 Assessment Tool: KANE-7 Assessment 67819 Review of Systems Const Denies chills, Reports difficulty sleeping (at times), Denies fatigue, Denies fever(s), Reports headache(s) (recurrent - see HPI) and Denies malaise Eyes Denies blurry vision, Denies change in vision, Denies irritation and Denies itchy eyes ENT Denies dysphagia, Reports dizziness (on and off lately), Denies otalgia, Reports headache(s) (recurrent - see HPI), Denies nasal congestion, Denies neck pain, Denies odynophagia, Denies sinus pain and Denies sore throat Card Denies chest pain, Denies rapid heart rate, Denies irregular heart rhythm, Denies palpitations and Denies dyspnea Resp Denies chest congestion, Denies cough, Denies dyspnea and Denies wheezing GI Denies abdominal pain, Denies bloating, Reports constipation (on and off), Denie s dysphagia, Denies heartburn, Denies diarrhea, Denies nausea, Denies odynophagia and Denies vomiting Denies hematuria, Denies urinary frequency, Denies dysuria, Denies urinary incontinence and Denies urinary urgency Musc Denies back pain, Denies arthralgias, Denies joint swelling, Denies muscle weakness and Denies neck pain Skin/Breast Denies breast pain, Denies breast mass, Denies change in pigmentation, Denies lesions, Denies rash and Denies unusual bruising Neuro Reports dizziness (on and off lately), Reports headache(s) (recurrent - see HPI) and Denies paresthesias Psych Denies anxiety, Reports depression (controlled on Rx), Denies auditory hallucinations and Denies visual hallucinations Endo Denies fatigue and Denies palpitations Aquilino/Lymph Denies easy bruising Aller/Immun Denies itchy eyes and Denies wheezing Physical exam (Primary Care) Vital Signs: Last Vital Signs Pulse 97 09/15/23 17:32 BP 132/60 09/15/23 17:32 Pulse Ox 99 09/15/23 17:32 Oxygen Delivery Method Room Air 09/15/23 17:32 BMI result Body Mass Index 26.3 Tobacco/Smoking Status: Tobacco use Status Tobacco use date assessed 09/15/23 09/15/23 17:41 Patient Tobacco Use Status Never used Tobacco 09/15/23 17:41 e-Cigarette/Vaping Use Never Used 09/15/23 17:41 PHQ-9: PHQ-9 Score PHQ-9: Total score 17 09/15/23 17:50 Depression Screening Interpretation: Positive Depression Screening Follow-up: Existing condition and In treatment Thrive Assessment: Date of Thrive Assessment Date Thrive assessed 09/15/23 09/15/23 17:41 Currently or been in a relationship where the following occur: no concerns reported Const General: no acute distress, alert and awake Orientation/consciousness: patient oriented x3 HENMT Head: Yes normocephalic and Yes atraumatic Ears: external ears normal, TM's normal bilaterally and EAC's normal General nose exam: No nasal discharge present Face and sinus: Yes normal facial exam and Yes sinuses nontender Teeth and gingiva: dentition normal Throat: Yes posterior oropharynx normal and Yes tonsils normal (no TP congestion) Eyes Eyelids: Yes eyelids normal Conjunctivae: conjunctivae normal Pupils: Equal, round and reactive pupils present EOM: EOMs intact bilaterally Neck Neck: Yes no lymphadenopathy and Yes supple Thyroid: Thyroid normal Resp Auscultation: clear to auscultation bilaterally, no rales and no wheezes Cardio Rate: regular rate Rhythm: regular rhythm Heart sounds: no murmurs GI Palpation (GI): Soft to palpation, nontender and No hepatosplenomegaly present Auscultation: normal bowel sounds General: Yes no CVA tenderness Back/Spine/Pelvis Back: no CVA tenderness Thoracic/Lumbar Spine: thoracic and lumbar spine normal to inspection Skin Lesions: no lesions Rashes: no rashes Neuro General: patient oriented x3, moves all extremities, no focal motor deficits and CN's II-XI intact bilaterally Cranial nerves: Yes Equal, round and reactive pupils present Cognition (Neuro): normal cognition Gait exam (Neuro): Normal gait present Extrem General: Yes no clubbing, cyanosis or edema Assessment and Plan Assessment & Plan (1) Annual physical exam: Code(s): Z00.00 - Encounter for general adult medical examination without abnormal findings Plan: Check labs She is up-to-date with her annual gynecology exam and pap smear (2) Migraines: Code(s): G43.909 - Migraine, unspecified, not intractable, without status migrainosus Qualifiers: Intractability: not intractable Migraine type: without aura Status migrainosus presence: without status migrainosus Qualified Code(s): G43.009 - Migraine without aura, not intractable, without status migrainosus Plan: Head CT done in January 2021 came out normal Headaches have improved with prophylactic Rx (Topiramate 25 mg Q HS) for a while although her headaches appear to have progressed a few months ago and her Topiramate was increased to 50 mg Q HS by neurology She however started experiencing recurrent dizziness since and her Topiramate was lowered back to 25 mg Q HS by neurology earlier today Patient also takes Sumatriptan 50 mg PRN for headaches Reinforced avoidance of potential migraine triggers Follow up with neurology as scheduled (3) GERD (gastroesophageal reflux disease): Code(s): K21.9 - Gastro-esophageal reflux disease without esophagitis Qualifiers: Esophagitis presence: without esophagitis Qualified Code(s): K21.9 - Gastro-esophageal reflux disease without esophagitis Plan: Dietary restrictions reinforced Continue Omeprazole 40 mg QD and Famotidine 20 mg Q HS Her upper GI series and barium swallow done over the past couple of years were both normal Follow up with GI as scheduled (4) Vitamin D deficiency: Code(s): E55.9 - Vitamin D deficiency, unspecified Plan: Continue Vitamin D3 2000 units QD Will recheck her Vitamin D level for follow up (5) Allergic rhinitis: Code(s): J30.9 - Allergic rhinitis, unspecified Qualifiers: Allergic rhinitis seasonality: seasonal Allergic rhinitis trigger: unspecified Qualified Code(s): J30.2 - Other seasonal allergic rhinitis Plan: Continue Cetirizine 10 mg QD PRN and Fluticasone 50 mcg 2 sprays to each nostril QD PRN (6) Constipation: Comment: Continue bowel regimen colace maintain HFD Avoid straining, Citrucel Code(s): K59.00 - Constipation, unspecified Qualifiers: Constipation type: unspecified constipation type Qualified Code(s): K59.00 - Constipation, unspecified Plan: Encouraged inxreased oral fluids and dietary fiber Continue Colace 200 mg Q HS PRN; she was also taking Citrucel 500 mg BID previously but she states that she has not been taking this lately (7) Attention deficit hyperactivity disorder (ADHD): Code(s): F90.9 - Attention-deficit hyperactivity disorder, unspecified type Qualifiers: Attention deficit-hyperactivity disorder type: combined inattentive- hyperactive Qualified Code(s): F90.2 - Attention-deficit hyperactivity disorder, combined type Plan: Continue Focalin XR 10 mg QD Follow-up with Psychiatry as scheduled (8) Schizophrenia: Code(s): F20.9 - Schizophrenia, unspecified Qualifiers: Schizophrenia type: unspecified Qualified Code(s): F20.9 - Schizophrenia, unspecified Plan: Continue Olanzapine 7.5 mg QD, Clonidine 0.2 mg Q HS and Diazepam 2 mg PRN Follow up with psychiatry as scheduled (9) Overweight (BMI 25.0-29.9): Code(s): E66.3 - Overweight Plan: Reinforced diet/exercise as tolerated/lose weight Plan Follow up in 6 months Orders: Orders Complete Blood Count Auto Diff Today D64.9 - Anemia, unspecified, Z00.00 - Encounter for general adult medical examination without abnormal findings Comprehensive Met. Panel Today Z00.00 - Encounter for general adult medical examination without abnormal findings TSH reflex Free T4 Today E78.00 - Pure hypercholesterolemia, unspecified, Z00.00 - Encounter for general adult medical examination without abnormal findings UA CC w/rflx Micro + Cult Today R30.0 - Dysuria, Z00.00 - Encounter for general adult medical examination without abnormal findings Vitamin D 25-OH Total Today E55.9 - Vitamin D deficiency, unspecified, Z00.00 - Encounter for general adult medical examination without abnormal findings Cholesterol Today Z00.00 - Encounter for general adult medical examination with out abnormal findings Coding Level of Care Code Est Pt Prev Care 18-39y([id number]) Diagnoses Annual physical exam Z00.00 Migraine without aura and without status migrainosus, not intractable G43.009 Intractability: not intractable Migraine type: without aura Status migrainosus presence: without status migrainosus Gastroesophageal reflux disease without esophagitis K21.9 Esophagitis presence: without esophagitis Vitamin D deficiency E55.9 Seasonal allergic rhinitis, unspecified trigger J30.2 Allergic rhinitis seasonality: seasonal Allergic rhinitis trigger: unspecified Constipation, unspecified constipation type K59.00 Constipation type: unspecified constipation type Attention deficit hyperactivity disorder (ADHD), combined type F90.2 Attention deficit-hyperactivity disorder type: combined inattentive- hyperactive Schizophrenia, unspecified type F20.9 Schizophrenia type: unspecified Overweight (BMI 25.0-29.9) E66.3 Additional Codes KANE-7 Assessment Billing - KANE-7 Assessment Tool: KANE-7 Assessment [id number] ([id number])
== END 2023-09-15 18:07 | disposition home or self-care (01) ==
PROVIDERS: PCP Internal Medicine; Visit Provider Internal Medicine
DX: Z00.00 Encounter for general adult medical examination without abnormal findings (principal); F20.9 Schizophrenia, unspecified; G43.009 Migraine without aura, not intractable, without status migrainosus; K21.9 Gastro-esophageal reflux disease without esophagitis; E55.9 Vitamin D deficiency, unspecified; J30.2 Other seasonal allergic rhinitis; K59.00 Constipation, unspecified; F90.2 Attention-deficit hyperactivity disorder, combined type; E66.3 Overweight
CPT/HCPCS: 99395

== ENCOUNTER 2023-10-16 14:32 | Outpatient (REF) | payer OTHER, SELFPAY ==
[2023-10-16 15:01] LABS: MANUAL DIFF FLAG NO
[2023-10-16 15:34] LABS: Basophils Absolute Auto 0.1 X10*3/uL (0.0-0.2); Basophils Percent Auto 1.1 % (0-2); Eosinophils Absolute Auto 0.1 X10*3/uL (0.0-0.4); Eosinophils Percent Auto 1.3 % (0-4); Hematocrit 38.3 % (37.0-47.0); Hemoglobin 12.6 g/dl (12.0-16.0); Imm Gran Abs Auto 0.02 X10*3/uL (0.00-0.03); Imm Gran Pct Auto 0.4 % (0.0-0.4); Lymphocytes Absolute Auto 1.8 X10*3/uL (1.2-4.9); Lymphocytes Percent Auto 32.6 % (20-40); Mean Corpuscular HGB Conc 32.9 g/dl (31.0-35.0); Mean Corpuscular Hemoglobin 27.7 pg (27.0-33.0); Mean Corpuscular Volume 84.2 fL (80.0-98.0); Mean Platelet Volume 10.3 fL (9.4-12.3); Monocytes Absolute Auto 0.4 X10*3/uL (0.1-1.2); Monocytes Percent Auto 7.9 % (2-11); Neutrophils Absolute Auto 3.2 x10*3/uL (2.0-8.3); Neutrophils Percent Auto 56.7 % (45-73); Platelet Count 280 X10*3/uL (160-400); Red Blood Count 4.55 X10*6/uL (4.20-5.50); Red Cell Distribution Width 14.1 % (11.0-16.0); White Blood Count 5.6 X10*3/uL (4.8-10.8)
[2023-10-16 15:44] LABS: Estimated Average Glucose 100 mg/dL; Hemoglobin A1c % 5.1 % (<6.0)
[2023-10-16 16:30] LABS: Cholesterol 135 mg/dL (<200); HDL Cholesterol 60 mg/dL (>40); LDL Cholesterol Calculated 68 mg/dL (<100); Triglycerides 37 mg/dL (<150)
[2023-10-16 16:39] LABS: Alanine Aminotransferase 40 U/L (0-31); Albumin Level 4.3 g/dL (3.5-5.0); Alkaline Phosphatase 62 U/L (39-117); Anion Gap 8 (12-20); Aspartate Amino Transferase 71 U/L (5-31); Bilirubin Total 0.5 mg/dL (0.0-1.0); Blood Urea Nitrogen 5 mg/dL (9-16); Calcium 9.2 mg/dL (8.4-10.2); Carbon Dioxide 26 mmol/L (22-29); Chloride 107 mmol/L (96-108); Cholesterol 135 mg/dL (<200); Estimated Glomerular Filt Rate > 60; Glucose Random 79 mg/dL (60-115); Potassium 3.7 mmol/L (3.3-5.1); Sodium 137 mmol/L (135-145); Total Protein 6.8 g/dL (6.5-8.0)
[2023-10-16 16:56] LABS: Vitamin D 25-OH Total 28.5 ng/mL (>30)
[2023-10-16 19:33] LABS: Appearance Urine Clear; Color Urine Yellow; Glucose Urine UA Negative (Negative); Leukocyte Esterase Urine Negative (Negative); Nitrite Urine Negative (Negative); Urine Blood Negative (Negative); Urine Ketones Negative (Negative); Urine Protein Negative (Neg-Trace)
[2023-10-17 14:08] LABS: Prolactin 11.5 ng/mL
== END 2023-10-16 14:33 | disposition home or self-care (01) ==
LOC: HO.LAB 14:32
PROVIDERS: Absent Provider Registered Nurse Psychiatric/Mental Health; PCP Internal Medicine; Visit Provider Internal Medicine
DX: Z00.00 Encounter for general adult medical examination without abnormal findings (principal); Z79.899 Other long term (current) drug therapy; D64.9 Anemia, unspecified; E78.00 Pure hypercholesterolemia, unspecified; E55.9 Vitamin D deficiency, unspecified
CPT/HCPCS: 36415; 80053; 80061; 81003; 82306; 82465; 83036; 84146; 84443; 85025

== ENCOUNTER 2023-12-18 08:26 | Outpatient (AMB) | payer OTHER, SELFPAY ==
[2023-12-18 08:39] VITALS: BP 120/70; PULSE 69; O2SAT 99; BMI 26.6
--- NOTE | 2023-12-18 08:39 | MHC.PC.OV ---
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 Required: No Accompanied by: Self / Same As Patient Allergies peanut Allergy (Severe, Verified 12/18/23 08:41) Nausea and Vomiting Seasonal Allergies Allergy (Severe, Verified 12/18/23 08:41) Eye Swelling walnut Allergy (Severe, Verified 12/18/23 08:41) Difficulty Swallowing grass pollen-perennial rye, standar Allergy (Unknown, Verified 12/18/23 08:41) Cough Medication List - Last Reconciled 12/18/23 by Merle Burgess PA-C azelastine 0.05% 1 drp ophthalmic (eye) BID PRN cetirizine 10 mg PO DAILY clonidine HCl 0.2 mg PO BEDTIME dexmethylphenidate ER (Focalin XR) 10 mg PO DAILY diazepam 2 mg PO ONCE PRN famotidine 20 mg PO BEDTIME 30 days fluticasone propionate 50 mcg/actuation 0 mcg intranasal olanzapine 7.5 mg PO BEDTIME omeprazole 40 mg PO DAILY 30 days topiramate 25 mg PO BEDTIME Tobacco use date assessed: 09/15/23 Dental Screening Dental Screen Date: 09/15/23 HPI Pt complains of what sounded be heart palpita HPI Details 23 year old female with past history of schizophrenia, ADHD, GERD, and IBS last seen by Dr. Trinh coming in for acute problem. Today she tells us she has been having chest discomfort and feeling like her heart is skipping a beat for the last year or so that have been more noticable in the last few months. She recently began exercising and has been noticing the chest discomfort worsens when she exercises and improves with rest. She does have a history of GERD and was previously being treated with the omeprazole and discontinued this about 1 year ago and shortly after the chest discomfort started. She also mentioned in the last 2-3 weeks she has started with nausea almost every morning as well as vomiting throughout the week. [facility] Medical History Vitamin D deficiency Overweight (BMI 25.0-29.9) Attention deficit hyperactivity disorder (ADHD) Allergic rhinitis Environmental allergies Schizophrenia ADHD Elevated LFTs Migraines Surgical History Hx of wisdom tooth extraction History of appendectomy Family History Mother No problems noted. Father No problems noted. Social History Housing: House Alcohol intake: never Patient Tobacco Use Status: Never used Tobacco Tobacco use type: Cigarette e-Cigarette/Vaping Use: Never Used Second Hand Smoke Exposure: Yes Substance Use Type: Marijuana service: No Current occupational status: student Cognitive needs: No Hearing needs: No Vision needs: Yes Female Reproductive History Menstrual Age of Menarche: 12 Questionnaire PHQ-9 Over the last 2 weeks, how often have you been bothered by any of the following problems? 1. Little interest or pleasure in doing things: more than half the days 2. Feeling down, depressed, or hopeless: more than half the days 3. Trouble falling or staying asleep, or sleeping too much: nearly every day 4. Feeling tired or having little energy: nearly every day 5. Poor appetite or overeating: several days 6. Feeling bad about yourself - or that you are a failure or have let yourself or your family down: several days 7. Trouble concentrating on things, such as reading the newspaper or watching television: nearly every day 8. Moving or speaking so slowly that other people could have noticed. Or the opposite - being so fidgety or restless that you have been moving around a lot more than usual: several days 9. Thoughts that you would be better off or of hurting yourself in some way: several days Total score: 17 Depression Screening Interpretation: Positive Depression Screening Follow-up: Existing condition and In treatment Depression Screening Done: Yes 55165 - PHQ-9 Billing: Yes Source: Developed by Drs. Gus Sandoval, Aurelia Rcie, Balaji Mason and colleagues, with an educational shoaib from [employer]. Thrive Questionnaire Date Thrive assessed: 09/15/23 AUDIT C Alcohol Use Questionnaire (AUDIT-C) 1. How often do you have a drink containing alcohol?: 2-4 times a month 2. How many drinks containing alcohol do you have on a typical day when you are drinking?: 5 or 6 3. How often do you have six or more drinks on one occasion?: Never Total Score: 4 Score Reviewed/Action Taken: Yes KANE-7 AMB Questionnaire KANE-7 Date KANE - 7 assessed: 09/15/23 Source: Developed by Drs. Gus Sandoval, Aurelia Rice, Balaji Mason and colleagues, with an educational shoaib from [employer]. Physical exam (Primary Care) Vital Signs: Last Vital Signs Pulse 69 12/18/23 08:39 BP 120/70 12/18/23 08:39 Pulse Ox 99 12/18/23 08:39 Oxygen Delivery Method Room Air 12/18/23 08:39 BMI result Body Mass Index 26.6 Tobacco/Smoking Status: Tobacco use Status Tobacco use date assessed 09/15/23 12/18/23 08:39 Patient Tobacco Use Status Never used Tobacco 12/18/23 08:39 Tobacco use type Cigarette 12/18/23 08:44 e-Cigarette/Vaping Use Never Used 12/18/23 08:39 PHQ-9: PHQ-9 Score PHQ-9: Total score 17 12/18/23 08:53 Depression Screening Interpretation: Positive Depression Screening Follow-up: Existing condition and In treatment Thrive Assessment: Date of Thrive Assessment Date Thrive assessed 09/15/23 12/18/23 08:39 Assessment and Plan Assessment & Plan (1) Palpitations: Code(s): R00.2 - Palpitations Plan: Ordered for 3 day Holter monitor to be completed for evaluation of palpitations. We will follow up in 1 month. (2) GERD (gastroesophageal reflux disease): Code(s): K21.9 - Gastro-esophageal reflux disease without esophagitis Qualifiers: Esophagitis presence: without esophagitis Qualified Code(s): K21.9 - Gastro-esophageal reflux disease without esophagitis Plan: Patient has a history of GERD and was previously being treated with omeprazole 40 mg with good relief. She discontinued this medication about 1-1 and half years ago and shortly after the chest discomfort started. Advised patient to start taking omeprazole 20 mg daily and famotidine as needed for nausea and heartburn to evaluate for improvement of chest discomfort. Upper GI series and barium swallow over the last couple of years have been normal. Avoid trigger foods such as citrus, tomato products, soda, caffeine, spicy foods and other foods that may be irritating to your stomach. Avoid laying flat 3-4 hours after eating and elevate the head of the bed 30 degrees to prevent acid from moving into the esophagus. (3) Elevated LFTs: Code(s): R79.89 - Other specified abnormal findings of blood chemistry Plan: Ordered for abdominal ultrasound to evaluate for elevated LFTs. (4) Chest pain on exertion: Code(s): R07.9 - Chest pain, unspecified Plan: Chest pain that she is describing is more of a burning/spice sensation in less consistent with angina. Ordered for 3 day Holter monitor and we will treat GERD symptoms to see if there is improvement. If patient continues to have chest pain despite a normal workup we can consider a stress ECG. Plan This note was constructed using voice recognition software. While every effort has been made to ensure accuracy and linking machine operator, still areas may have been included sometimes these areas may affect the content or meeting of the given symptoms. Total time spent caring for the patient today was 30 minutes. This includes time spent before the visit reviewing the chart, time spent during the visit, and time spent after the visit and documentation. Orders: Orders ECG 3 day holter monitor Today R00.2 - Palpitations Comprehensive Met. Panel Today Z00.00 - Encounter for general adult medical examination without abnormal findings UA CC w/rflx Micro + Cult Today Z00.00 - Encounter for general adult medical examination without abnormal findings US abdomen complete Today R79.89 - Other specified abnormal findings of blood chemistry Medications: New omeprazole 20 mg PO DAILY 30 caps 1RF On Hold omeprazole Hold Comment: Dose Change 40 mg PO DAILY 30 days 30 caps 3RF Coding Level of Care Code Est Pt Level 4 (48072) Diagnoses Palpitations R00.2 Gastroesophageal reflux disease without esophagitis K21.9 Esophagitis presence: without esophagitis Elevated LFTs R79.89 Chest pain on exertion R07.9
== END 2023-12-18 09:10 | disposition home or self-care (01) ==
PROVIDERS: PCP Internal Medicine
DX: R00.2 Palpitations (principal); K21.9 Gastro-esophageal reflux disease without esophagitis; R74.01 Elevation of levels of liver transaminase levels; R07.9 Chest pain, unspecified
CPT/HCPCS: 99214

== ENCOUNTER 2023-12-18 09:15 | Outpatient (REF) | payer OTHER, SELFPAY ==
[2023-12-18 10:54] LABS: Alanine Aminotransferase 32 U/L (0-31); Albumin Level 4.3 g/dL (3.5-5.0); Alkaline Phosphatase 68 U/L (39-117); Anion Gap 11 (12-20); Aspartate Amino Transferase 29 U/L (5-31); Bilirubin Total 0.2 mg/dL (0.0-1.0); Blood Urea Nitrogen 8 mg/dL (9-16); Calcium 9.4 mg/dL (8.4-10.2); Carbon Dioxide 25 mmol/L (22-29); Chloride 110 mmol/L (96-108); Estimated Glomerular Filt Rate > 60; Glucose Random 96 mg/dL (60-115); Sodium 142 mmol/L (135-145)
[2023-12-18 11:05] LABS: Appearance Urine Clear; Color Urine Yellow; Glucose Urine UA Negative (Negative); Leukocyte Esterase Urine Negative (Negative); Nitrite Urine Negative (Negative); PH 6.5 (5.0-9.0); Specific Gravity - Urine <= 1.005 (1.005-1.025); Urine Blood Negative (Negative); Urine Ketones Negative (Negative); Urine Protein Negative (Neg-Trace)
== END 2023-12-18 09:16 | disposition home or self-care (01) ==
LOC: HO.LAB 09:15
PROVIDERS: PCP Internal Medicine
DX: Z00.00 Encounter for general adult medical examination without abnormal findings (principal)
CPT/HCPCS: 36415; 80053; 81003

== ENCOUNTER 2023-12-31 07:49 | Outpatient (REF) | payer OTHER, SELFPAY ==
--- NOTE | ~2023-12-31 | US_ITS ---
EXAMINATION: US ABDOMEN COMPLETE CLINICAL INFORMATION: Other specified abnormal findings of blood chemistry. COMPARISON: Ultrasound abdomen limited 04/28/2020. TECHNIQUE: Real-time imaging of the abdominal viscera. FINDINGS: PANCREAS: Normal. ABDOMINAL AORTA: The mid abdominal aorta was obscured by bowel gas but no aneurysm is seen. INFERIOR VENA CAVA: Visualized portions are normal. LIVER: The liver is normal in size. The liver contour is normal. There is diffuse increased liver parenchymal echogenicity, consistent with hepatic steatosis. No focal hepatic lesion. There is no intrahepatic biliary duct dilatation seen. GALLBLADDER: The gallbladder is physiologically distended without evidence of stones, sludge, polyps, wall thickening or pericholecystic fluid. COMMON BILE DUCT: Normal in caliber measuring 0.4 cm in diameter. RIGHT KIDNEY: No hydronephrosis. No renal calculi or focal parenchymal lesions. The kidney measures 11.1 cm in maximum dimension. LEFT KIDNEY: No hydronephrosis. No renal calculi or focal parenchymal lesions. The kidney measures 11.4 cm in maximum dimension. SPLEEN: Normal. The spleen measures 10.6 cm in maximum dimension. FREE FLUID: None. US/US abdomen complete IMPRESSION: Hepatic steatosis. Electronically signed by: Yash Urbano MD 02/19/2024 12:43 PM [facility]
== END 2023-12-31 07:50 | disposition home or self-care (01) ==
LOC: HO.US 07:49
DX: R79.89 Other specified abnormal findings of blood chemistry (principal)
CPT/HCPCS: 76700

== ENCOUNTER → 2024-01-06 09:31 | Outpatient (REF) | payer OTHER, SELFPAY ==
--- NOTE | 2024-01-06 | CA_ITS ---
Acquisition Time: 2024-01-06 10:09:08 Total Exercise Time: 00:09:30 Test Indications: R00.2 Medications: SEE H Protocol: MAURICE Max HR: 173 BPM 87% of Pred: 198 BPM Max BP: 160/060 mmHG Max Work Load: 10.9 METS Exercise stress test exercise 9 min 30 sec of Maurice protocol achieving 87% MPHR, with mild SOB, with 6/10 chest tightness with breathing, without arrhythmias, with normotensive response to exercise, without EKG changes. Chest tightness resolved with rest. Test reviewed with Dr. Chung. Referred By: Merle Burgess Overread By: Radha Hoover
== END ==
LOC: HO.CARD 09:31
DX: R00.2 Palpitations (principal)
CPT/HCPCS: 93017

== ENCOUNTER → 2024-01-06 09:31 | Outpatient (BNV) | payer OTHER, SELFPAY | PROVIDERS: Visit Provider Nurse Practitioner | DX: R06.02 Shortness of breath (principal); R07.9 Chest pain, unspecified | CPT/HCPCS: 93016; 93018 ==

== ENCOUNTER 2024-01-07 08:29 | Outpatient (REF) | payer OTHER, SELFPAY ==
--- NOTE | ~2024-01-07 | FL_ITS ---
EXAMINATION: XR FLUOROSCOPY UPPER GI WITH AIR CLINICAL INFORMATION: Dysphagia. Nominal pain. COMPARISON: Barium swallow 2021 and 2020 TECHNIQUE: Fluoroscopic air contrast upper GI examination was performed utilizing standard techniques with thin and thick barium and effervescent granules. Numerous spot images were obtained. FINDINGS: Lateral cine images of the oropharynx and hypopharynx demonstrate normal swallow mechanism with normal epiglottic inversion and soft palate elevation. No tracheal penetration, glottic or subglottic aspiration identified. No nasopharyngeal reflux present. Hypopharyngeal structures appear normal without evidence of mass or diverticulum. There was no significant cricopharyngeal achalasia. Dual and single contrast images of the esophagus demonstrate normal caliber, contour, and mucosal pattern. No evidence of stricture, mass, or ulcerations identified. Esophageal peristalsis was normal. A small type I hiatal hernia is present. No significant gastroesophageal reflux was seen during the course of the examination and on reflux views. Dual contrast and single contrast images of the stomach demonstrated a normal contour. The areae gastrica have a thickened appearance, suggestive of gastritis. No masses or ulcerations are seen. Contrast freely passed into the gastric antrum and duodenal bulb without delay. Single and air-contrast images of the duodenal bulb demonstrate no abnormality. The duodenal sweep has a normal appearance, course, and mucosal fold appearance. The imaged proximal jejunum has a normal fold pattern and caliber. FLUOROSCOPY TIME: 3 minutes 22 seconds DOSE AREA PRODUCT: 1663 uGy-m2 (microgray-meter squared) FL/FL upper GI w air IMPRESSION: 1. Small type I hiatal hernia. 2. Thickened appearance of the areae gastricae, suggestive of gastritis. This procedure was performed by Elliott Shepherd PA-C, and supervised by Dr. Hoover Electronically signed by: Satya Hoover MD 01/07/2024 04:40 PM EDT
== END 2024-01-07 08:30 | disposition home or self-care (01) ==
LOC: HO.XRAY 08:29
DX: K21.9 Gastro-esophageal reflux disease without esophagitis (principal)
CPT/HCPCS: 74246

== ENCOUNTER → 2024-01-07 08:31 | Outpatient (BNV) | payer OTHER, SELFPAY | PROVIDERS: Visit Provider Radiology Diagnostic Radiology | DX: R13.10 Dysphagia, unspecified (principal) | CPT/HCPCS: 74246 ==

== ENCOUNTER → 2024-01-14 11:11 | Outpatient (REF) | payer OTHER, SELFPAY ==
--- NOTE | 2024-01-14 11:14 | HM_ITS ---
* Total monitoring time 6 days. * Underlying rhythm is sinus with an average rate of 74/Min. * Rare supraventricular ectopy. * Rare ventricular ectopy. * No significant pauses or AV blocks. * Patient markers used in association with sinus rhythm. * Pinching/tightness in chest, shortness of breath, pinching on spine, associated with sinus rhythm. MTDD
== END ==
LOC: HO.CARD 11:11
DX: R00.2 Palpitations (principal)
CPT/HCPCS: 93242

== ENCOUNTER → 2024-01-14 11:14 | Outpatient (BNV) | payer OTHER, SELFPAY | PROVIDERS: Visit Provider Internal Medicine | DX: I47.10 Supraventricular tachycardia, unspecified (principal) | CPT/HCPCS: 93244 ==

== ENCOUNTER 2024-01-15 08:20 | Outpatient (AMB) | payer OTHER, SELFPAY ==
[2024-01-15 08:23] VITALS: BP 116/70; PULSE 91; O2SAT 97
--- NOTE | 2024-01-15 08:23 | MHC.OFFWIV ---
Intake Vital Signs 01/15/24 08:23 Weight 148 lb BP 116/70 Blood Pressure Location Lt brachial Position Sitting Pulse 91 Pulse Source Pulse Oximeter Pulse Oximetry (%) 97 Oxygen Delivery Method Room Air Intake Visit Reasons: EP a lump on the right side of her neck Intake Note: Patient here for lump on right side of neck which she noticed last week and states the lump has gotten bigger. Patient Tobacco Use Status: Never used Tobacco Allergies peanut Allergy (Severe, Verified 01/15/24 08:30) Nausea and Vomiting Seasonal Allergies Allergy (Severe, Verified 01/15/24 08:30) Eye Swelling walnut Allergy (Severe, Verified 01/15/24 08:30) Difficulty Swallowing grass pollen-perennial rye, standar Allergy (Unknown, Verified 01/15/24 08:30) Cough topiramate Adverse Reaction (Mild, Verified 01/15/24 08:32) dizzy Do you need a note to return to daycare/school/sports/work: No HPI HPI Comments History of Present Illness Details Patient is a 23-year-old female complaining of a lump below her right ear that she noticed about a week ago. She states the lump is not painful but she thinks it is getting a little bit bigger. She does tell me she had to new piercings put in her right ear 1 was 2 weeks ago and 1 was a month ago. She denies any recent ear infections or head colds or sinus infections. [facility] Medical History Vitamin D deficiency Overweight (BMI 25.0-29.9) Attention deficit hyperactivity disorder (ADHD) Allergic rhinitis Environmental allergies Schizophrenia ADHD Elevated LFTs Migraines Surgical History Hx of wisdom tooth extraction History of appendectomy Family History Mother No problems noted. Father No problems noted. Social History Housing: House Alcohol intake: never Patient Tobacco Use Status: Never used Tobacco Tobacco use type: Cigarette e-Cigarette/Vaping Use: Never Used Second Hand Smoke Exposure: Yes Substance Use Type: Marijuana service: No Current occupational status: student Cognitive needs: No Hearing needs: No Vision needs: Yes Female Reproductive History Menstrual Age of Menarche: 12 Review of Systems Const All systems reviewed & are unremarkable except as noted in HPI and below Physical Exam Vital Signs: Last Vital Signs Pulse 91 01/15/24 08:23 BP 116/70 01/15/24 08:23 Pulse Ox 97 01/15/24 08:23 Oxygen Delivery Method Room Air 01/15/24 08:23 Const General: cooperative, healthy appearing, comfortable and no acute distress Orientation/consciousness: patient oriented x3 Limitations: no limitations HEENT Head: Yes normal to inspection Ears: hearing grossly normal bilaterally and external ears normal General nose exam: Normal external nose present, Normal nares present and No nasal discharge present Face and sinus: Yes normal facial exam Eyes General: appearance normal, both eyes and all related structures Neck Neck: Yes lymphadenopathy (Right side cervical palpable smooth, firm nodule approx 0.75cm round) Resp Effort & Inspection: normal respiratory effort, able to speak in complete sentences, no respiratory distress, not tachypneic, no tripod positioning and no use of accessory muscles Skin General skin exam: no rashes or lesions noted Neuro General: patient oriented x3 Extrem General: Yes normal to inspection and Yes no clubbing, cyanosis or edema Assessment & Plan Assessment & Plan (1) Lymphadenopathy, cervical: Code(s): R59.0 - Localized enlarged lymph nodes Plan: Educated patient on what lymphadenopathy is, likely secondary to the piercings she just got on that ear and that the inflamed lymph node should go down over time but if it does not go away in the next couple of weeks, she should follow up with her PCP for imaging and further workup. Plan See above Coding Level of Care Code Est Pt Level 3 (34649) Diagnoses Lymphadenopathy, cervical R59.0
== END 2024-01-15 09:12 | disposition home or self-care (01) ==
PROVIDERS: Visit Provider Physician Assistant
DX: R59.0 Localized enlarged lymph nodes (principal)

== ENCOUNTER → 2024-01-15 08:20 | Outpatient (BNVA) | payer OTHER, SELFPAY | PROVIDERS: Visit Provider Physician Assistant | DX: R59.0 Localized enlarged lymph nodes (principal) | CPT/HCPCS: 99212 ==

== ENCOUNTER 2024-01-20 08:59 | Outpatient (AMB) | payer OTHER, SELFPAY ==
[2024-01-20 09:12] VITALS: BP 122/64; PULSE 93; O2SAT 98; BMI 26.4
--- NOTE | 2024-01-20 09:12 | A.OFFPC_ITS ---
Vital Signs 01/20/24 09:12 Height 5 ft 3 in Weight 149 lb BMI 26.4 BP 122/64 Blood Pressure Location Lt brachial Position Sitting Pulse 93 Pulse Source Pulse Oximeter Pulse Oximetry (%) 98 Oxygen Delivery Method Room Air Intake Visit Reasons: f/u palpitations Allergies peanut Allergy (Severe, Verified 01/20/24 09:15) Nausea and Vomiting Seasonal Allergies Allergy (Severe, Verified 01/20/24 09:15) Eye Swelling walnut Allergy (Severe, Verified 01/20/24 09:15) Difficulty Swallowing grass pollen-perennial rye, standar Allergy (Unknown, Verified 01/20/24 09:15) Cough topiramate Adverse Reaction (Mild, Verified 01/20/24 09:15) dizzy Medication List - Last Reconciled 01/20/24 by Merle Burgess PA-C cetirizine 10 mg PO DAILY clonidine HCl 0.2 mg PO BEDTIME diazepam 2 mg PO ONCE PRN famotidine 20 mg PO BEDTIME 30 days fluticasone propionate 50 mcg/actuation 0 mcg intranasal olanzapine 7.5 mg PO BEDTIME omeprazole 40 mg PO DAILY 30 days omeprazole 20 mg PO DAILY Tobacco use date assessed: 09/15/23 Dental Screening Dental Screen Date: 09/15/23 HPI f/u palpitations HPI Details 23 year old female with past history of schizophrenia, ADHD, GERD, and IBS last seen December 2023. Patient underwent cardiac stress test 01/06/2024 patient had reported 6/10 chest tightness with breathing without arrhythmias with normotensive response and without EKG changes. Patient also completed upper GI series which showed small type 1 hiatal hernia and findings suggestive of gastritis. Abdominal ultrasound completed but not read yet. Today she tells us the palpitations have been happening less than last and have been less than once a week. She has been using the famotidine and omeprazole for her reflux symptoms and has noticed a drastic improvement and has seen decreased vomiting. She completed the Holter monitor and has send it back but has not been read yet. She also mentioned she was seen in urgent care last week for swollen lymph node which is still present. [facility] Medical History Vitamin D deficiency Overweight (BMI 25.0-29.9) Attention deficit hyperactivity disorder (ADHD) Allergic rhinitis Environmental allergies Schizophrenia ADHD Elevated LFTs Migraines Surgical History Hx of wisdom tooth extraction History of appendectomy Family History Mother No problems noted. Father No problems noted. Social History Housing: House Alcohol intake: never Patient Tobacco Use Status: Never used Tobacco Tobacco use type: Cigarette e-Cigarette/Vaping Use: Never Used Second Hand Smoke Exposure: Yes Substance Use Type: Marijuana service: No Current occupational status: student Cognitive needs: No Hearing needs: No Vision needs: Yes Female Reproductive History Menstrual Age of Menarche: 12 Questionnaire Thrive Questionnaire Date Thrive assessed: 09/15/23 Are you currently unemployed and looking for a job?: No AUDIT C Alcohol Use Questionnaire (AUDIT-C) 2. How many drinks containing alcohol do you have on a typical day when you are drinking?: 5 or 6 3. How often do you have six or more drinks on one occasion?: Never Total Score: 2 KANE-7 AMB Questionnaire KANE-7 Date KANE - 7 assessed: 09/15/23 Source: Developed by Drs. Gus Sandoval, Aurelia Rice, Balaji Mason and colleagues, with an educational shoaib from [employer]. Review of Systems Const Denies chills and Denies fever(s) Eyes Reports no additional complaints ENT Reports no additional complaints Card Denies chest pain, Reports chest pain with activity (tightness), Denies syncope, Reports irregular heart rhythm (Occasional palpitations), Denies lightheadedness, Denies palpitations, Denies dyspnea and Reports dyspnea on exertion Resp Denies cough, Denies dyspnea and Reports dyspnea on exertion GI Denies abdominal pain, Reports dyspepsia, Reports heartburn and Denies vomiting (Decreased) Musc Reports no additional complaints Skin/Breast Reports system reviewed and no additional complaints, except as documented Neuro Denies syncope Endo Denies palpitations Physical exam (Primary Care) Vital Signs: Last Vital Signs Pulse 93 01/20/24 09:12 BP 122/64 01/20/24 09:12 Pulse Ox 98 01/20/24 09:12 Oxygen Delivery Method Room Air 01/20/24 09:12 BMI result Body Mass Index 26.4 Tobacco/Smoking Status: Tobacco use Status Tobacco use date assessed 09/15/23 01/20/24 09:18 Patient Tobacco Use Status Never used Tobacco 01/20/24 09:18 Tobacco use type Cigarette 01/20/24 09:18 e-Cigarette/Vaping Use Never Used 01/20/24 09:18 Thrive Assessment: Date of Thrive Assessment Date Thrive assessed 09/15/23 01/20/24 09:18 Const General: cooperative, healthy appearing, comfortable and no acute distress Orientation/consciousness: patient oriented x3 HENMT Head: Yes normocephalic Ears: hearing grossly normal bilaterally General nose exam: Normal external nose present Eyes General: appearance normal, both eyes and all related structures Conjunctivae: conjunctivae normal Neck Other: Singular palpable anterior cervical lymph node without tenderness or swelling Neck: Yes full ROM and Yes no lymphadenopathy Resp Effort & Inspection: normal respiratory effort Auscultation: clear to auscultation bilaterally, no crackles, no rales, no rhonchi and no wheezes Cardio Rate: regular rate Rhythm: regular rhythm Skin General skin exam: no rashes or lesions noted Neuro General: patient oriented x3 Gait exam (Neuro): Normal gait present Extrem General: Yes normal to inspection, Yes full ROM and No edema Psych Affect: normal affect Attitude: cooperative Insight: Good insight present (Psych) Judgement: Good judgement present (Psych) Coding Level of Care Code Est Pt Level 4 (12536) Diagnoses Dyspnea on exertion R06.09 Lymphadenopathy, cervical R59.0 Palpitations R00.2 Chest pain on exertion R07.9 Gastroesophageal reflux disease without esophagitis K21.9 Esophagitis presence: without esophagitis Hiatal hernia K44.9 Assessment & Plan Assessment & Plan (1) Dyspnea on exertion: Code(s): R06.09 - Other forms of dyspnea Category: Medical Plan: Exercise stress test negative for cardiac involvement recommend pulmonary function testing to evaluate for asthma. Referral placed today. (2) Lymphadenopathy, cervical: Code(s): R59.0 - Localized enlarged lymph nodes Category: Medical Plan: Continue to monitor symptoms this will likely go down in the coming weeks. Could be related to recent piercing of the right ear advised patient to monitor and if persists we will do further workup. (3) Palpitations: Code(s): R00.2 - Palpitations Category: Medical Plan: Holter monitor completed and awaiting read. (4) Chest pain on exertion: Code(s): R07.9 - Chest pain, unspecified Category: Medical Plan: Exercise stress test negative for EKG changes or cardiac involvement. Patient describes pain as chest tightness referral to pulmonology for PFTs. (5) GERD (gastroesophageal reflux disease): Code(s): K21.9 - Gastro-esophageal reflux disease without esophagitis Category: Medical Qualifiers: Esophagitis presence: without esophagitis Qualified Code(s): K21.9 - Gastro-esophageal reflux disease without esophagitis Plan: Avoid trigger foods such as citrus, tomato products, soda, caffeine, spicy foods and other foods that may be irritating to your stomach. Avoid laying flat 3-4 hours after eating and elevate the head of the bed 30 degrees to prevent acid from moving into the esophagus. Continue on omeprazole and famotidine as needed (6) Hiatal hernia: Comment: 01/2024 Small type 1 Code(s): K44.9 - Diaphragmatic hernia without obstruction or gangrene Category: Medical Plan: Continue on omeprazole and famotidine as needed Plan This note was constructed using voice recognition software. While every effort has been made to ensure accuracy and wildlife forensic geneticist, still areas may have been included sometimes these areas may affect the content or meeting of the given symptoms. Total time spent caring for the patient today was 30 minutes. This includes time spent before the visit reviewing the chart, time spent during the visit, and time spent after the visit and documentation. Orders: Orders PFT pulmonary function test Today R06.09 - Other forms of dyspnea Complete Blood Count Auto Diff Today R59.0 - Localized enlarged lymph nodes, Z00.00 - Encounter for general adult medical examination without abnormal findings
== END 2024-01-20 09:50 | disposition home or self-care (01) ==
PROVIDERS: PCP Internal Medicine
DX: R06.09 Other forms of dyspnea (principal); R59.0 Localized enlarged lymph nodes; R00.2 Palpitations; R07.9 Chest pain, unspecified; K21.9 Gastro-esophageal reflux disease without esophagitis; K44.9 Diaphragmatic hernia without obstruction or gangrene

== ENCOUNTER → 2024-01-20 08:59 | Outpatient (BNVA) | payer OTHER, SELFPAY | PROVIDERS: PCP Internal Medicine | DX: R06.09 Other forms of dyspnea (principal); R59.0 Localized enlarged lymph nodes; R00.2 Palpitations; R07.9 Chest pain, unspecified; K21.9 Gastro-esophageal reflux disease without esophagitis; K44.9 Diaphragmatic hernia without obstruction or gangrene | CPT/HCPCS: 99212 ==

== ENCOUNTER 2024-01-21 16:14 | Outpatient (REF) | payer OTHER, SELFPAY ==
[2024-01-21 16:25] LABS: MANUAL DIFF FLAG NO
[2024-01-21 17:10] LABS: Basophils Absolute Auto 0.1 X10*3/uL (0.0-0.2); Basophils Percent Auto 1.3 % (0-2); Eosinophils Percent Auto 0.8 % (0-4); Hematocrit 36.4 % (37.0-47.0); Hemoglobin 11.6 g/dl (12.0-16.0); Imm Gran Abs Auto 0.01 X10*3/uL (0.00-0.03); Imm Gran Pct Auto 0.2 % (0.0-0.4); Lymphocytes Absolute Auto 2.3 X10*3/uL (1.2-4.9); Lymphocytes Percent Auto 43.5 % (20-40); Mean Corpuscular HGB Conc 31.9 g/dl (31.0-35.0); Mean Corpuscular Hemoglobin 26.7 pg (27.0-33.0); Mean Corpuscular Volume 83.7 fL (80.0-98.0); Mean Platelet Volume 10.4 fL (9.4-12.3); Monocytes Absolute Auto 0.5 X10*3/uL (0.1-1.2); Monocytes Percent Auto 8.6 % (2-11); Neutrophils Absolute Auto 2.4 x10*3/uL (2.0-8.3); Neutrophils Percent Auto 45.6 % (45-73); Platelet Count 316 X10*3/uL (160-400); Red Blood Count 4.35 X10*6/uL (4.20-5.50); Red Cell Distribution Width 12.9 % (11.0-16.0); White Blood Count 5.3 X10*3/uL (4.8-10.8)
== END 2024-01-21 16:15 | disposition home or self-care (01) ==
LOC: HO.LAB 16:14
PROVIDERS: PCP Internal Medicine
DX: Z00.00 Encounter for general adult medical examination without abnormal findings (principal); R59.0 Localized enlarged lymph nodes
CPT/HCPCS: 36415; 85025

== ENCOUNTER 2024-01-22 12:15 | Outpatient (REF) | payer OTHER, SELFPAY ==
[2024-01-22 14:18] LABS: Iron 40 mcg/dL (30-160); Percent Iron Saturation 11 % (15-50); Total Iron Binding Capacity 357 mcg/dL (228-428); Unsaturated Iron Binding 317 ug/dL
[2024-01-22 14:52] LABS: Folate 9.4 ng/mL (> or = 4.0); Vitamin B12 869 pg/mL (200-900)
== END 2024-01-22 12:16 | disposition home or self-care (01) ==
LOC: HO.LAB 12:15
PROVIDERS: PCP Internal Medicine
DX: D64.9 Anemia, unspecified (principal)
CPT/HCPCS: 36415; 82607; 82746; 83540

== ENCOUNTER → 2024-02-27 08:00 | Outpatient (BNV) | payer OTHER, SELFPAY | PROVIDERS: PCP Internal Medicine; Visit Provider Hospitalist | DX: R06.09 Other forms of dyspnea (principal) | CPT/HCPCS: 94060; 94727; 94729 ==

== ENCOUNTER 2024-02-27 08:04 | Outpatient (REF) | payer OTHER, SELFPAY ==
--- NOTE | 2024-02-27 08:00 | PFT_ITS ---
Indication dyspnea Spirometry [FEV1 to FVC 95%; FEV1 4.13 L; FVC 4.36 L. no significant response to bronchodilators noted. Maximum voluntary ventilation 117% predicted] Lung Volumes [Total lung capacity 117% predicted; residual volume 144% predicted] Diffusion Capacity [DLCO 109% predicted] Comparisons [None] Interpretation [No obstructive nor restrictive ventilatory defects identified. No significant response to bronchodilators noted. Normal oxygen voluntary ventilation. Lung volumes are demonstrating a trend of hyperinflation and significant air trapping. These findings could be related to underlying small airways disease. Diffusing capacity is within normal limits. If asthma is in the differential methacholine challenge will be helpful for assessing for hyperactive airways. Clinical correlation warranted] MTDD
[2024-02-27 10:48] VITALS: PULSE 80; O2SAT 99
== END 2024-02-27 08:05 | disposition home or self-care (01) ==
LOC: HO.RESP 08:04
PROVIDERS: PCP Internal Medicine
DX: R06.09 Other forms of dyspnea (principal)
CPT/HCPCS: 94010; 94640; 94727; 94729

== ENCOUNTER 2024-03-15 11:51 | Outpatient (REF) | payer OTHER, SELFPAY ==
[2024-03-15 12:47] LABS: Estimated Average Glucose 100 mg/dL; Hemoglobin A1C 107.5853 umol/L; Hemoglobin A1c % 5.1 % (<6.0); Total Hemoglobin (HGBA1C) 3375.0318 umol/L
[2024-03-15 13:12] LABS: Alanine Aminotransferase 24 U/L (0-31); Albumin Level 4.6 g/dL (3.5-5.0); Alkaline Phosphatase 57 U/L (39-117); Anion Gap 11 (12-20); Aspartate Amino Transferase 20 U/L (5-31); Bilirubin Total 0.4 mg/dL (0.0-1.0); Blood Urea Nitrogen 8 mg/dL (9-16); Calcium 9.5 mg/dL (8.4-10.2); Carbon Dioxide 27 mmol/L (22-29); Chloride 106 mmol/L (96-108); Estimated Glomerular Filt Rate > 60; Glucose Fasting 90 mg/dL (60-99); Potassium 4.2 mmol/L (3.3-5.1); Sodium 140 mmol/L (135-145); Total Protein 7.3 g/dL (6.5-8.0)
[2024-03-16 14:34] LABS: Prolactin 15.5 ng/mL
== END 2024-03-15 11:52 | disposition home or self-care (01) ==
LOC: HO.LAB 11:51
PROVIDERS: PCP Internal Medicine; Visit Provider Registered Nurse Psychiatric/Mental Health
DX: R00.2 Palpitations (principal); R03.0 Elevated blood-pressure reading, without diagnosis of hypertension; G43.009 Migraine without aura, not intractable, without status migrainosus; E55.9 Vitamin D deficiency, unspecified; K76.0 Fatty (change of) liver, not elsewhere classified; K59.00 Constipation, unspecified; J30.2 Other seasonal allergic rhinitis; F90.2 Attention-deficit hyperactivity disorder, combined type; F20.9 Schizophrenia, unspecified; E66.3 Overweight; Z68.26 Body mass index [BMI] 26.0-26.9, adult; Z71.3 Dietary counseling and surveillance; Z79.899 Other long term (current) drug therapy
CPT/HCPCS: 36415; 80053; 83036; 84146; 96127; 99212

== ENCOUNTER 2024-03-15 17:12 | Outpatient (AMB) | payer OTHER, SELFPAY ==
[2024-03-15 17:13] VITALS: BP 102/68; PULSE 85; O2SAT 98; BMI 26.1
--- NOTE | 2024-03-15 17:14 | MHC.PC.OV ---
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: No Accompanied by: Self / Same As Patient Allergies peanut Allergy (Severe, Verified 03/16/24 03:44) Nausea and Vomiting Seasonal Allergies Allergy (Severe, Verified 03/16/24 03:44) Eye Swelling walnut Allergy (Severe, Verified 03/16/24 03:44) Difficulty Swallowing grass pollen-perennial rye, standar Allergy (Unknown, Verified 03/16/24 03:44) Cough topiramate Adverse Reaction (Mild, Verified 03/16/24 03:44) dizzy Medication List - Last Reconciled 03/15/24 by Tobias Quinteros MD cetirizine 10 mg PO DAILY clonidine HCl 0.2 mg PO BEDTIME diazepam 2 mg PO ONCE PRN famotidine 20 mg PO BEDTIME 30 days ferrous sulfate 325 mg PO DAILY fluticasone propionate 50 mcg/actuation 0 mcg intranasal olanzapine 7.5 mg PO BEDTIME omeprazole 40 mg PO DAILY 30 days omeprazole 20 mg PO DAILY Tobacco use date assessed: 03/15/24 Dental Screening Dental Screen Date: 03/15/24 Did you have a dental visit in the last 12 months?: Yes Did you have a dental problem in the last 6 months where you did not have access to dental care?: No Was dental information given to patient?: Patient has dentist HPI Hypertension HPI Details Patient comes in today for follow up / further evaluation of her blood pressure She supposedly obtained a BP reading the other day wherein her systolic BP was at 170 mm and this got her very concerned about potential high blood pressure All of her other BP readings that she showed on her phone (she took pictures of her blood pressure readings) were all within normal range from 100 to 120 mm Of note, she has also recently undergone further work ups of reported symptoms of exertional chest pains and palpitations after she was seen and evaluated by one of our nurse practitioners a few months ago She was sent for cardiac stress testing as well as extended Holter monitoring as part of her work ups and both of these tests came back normal She currently continues to complain of on and off sensations of palpitations and chest discomfort, most notably at night when she is in bed although she also reports experiencing these at random times during the day These symptoms do not appear to be associated consistently with any exertional activities and states that she does not have any significant limitations with her ADLs Patient does appear to have significant issues with anxiety and this, as well as her schizophrenia, are likely contributing to her recent symptoms and perceptions States that she sees or talks to her therapist regularly/weekly and sees her psychiatrist every 1-2 months She is currently on Olanzapine for schizophrenia and takes Clonidine 0.2 mg at bedtime as well as Diazepam 2 mg PRN to help with her mood symptoms Recalls that she was also contacted by someone at the office recently and was told that she has a fatty liver based on her abdominal US done a few months ago and would like to know what she needs to do about this She denies any headaches or dizziness Denies any shortness of breath No nausea/vomiting, no abdominal pain No change in bowel habits noted PFSH Medical History (Updated 03/16/24 @ 04:50 by Tobias Quinteros MD) Hepatic steatosis Vitamin D deficiency Overweight (BMI 25.0-29.9) Attention deficit hyperactivity disorder (ADHD) Allergic rhinitis Environmental allergies Schizophrenia Elevated LFTs Migraines Surgical History Hx of wisdom tooth extraction History of appendectomy Family History Mother No problems noted. Father No problems noted. Social History Housing: House Alcohol intake: never Patient Tobacco Use Status: Never used Tobacco Tobacco use type: Cigarette e-Cigarette/Vaping Use: Never Used Second Hand Smoke Exposure: Yes Substance Use Type: Marijuana service: No Current occupational status: student Cognitive needs: No Hearing needs: No Vision needs: Yes Female Reproductive History Menstrual Age of Menarche: 12 Questionnaire PHQ-9 Over the last 2 weeks, how often have you been bothered by any of the following problems? 1. Little interest or pleasure in doing things: more than half the days 2. Feeling down, depressed, or hopeless: more than half the days 3. Trouble falling or staying asleep, or sleeping too much: nearly every day 4. Feeling tired or having little energy: nearly every day 5. Poor appetite or overeating: several days 6. Feeling bad about yourself - or that you are a failure or have let yourself or your family down: several days 7. Trouble concentrating on things, such as reading the newspaper or watching television: nearly every day 8. Moving or speaking so slowly that other people could have noticed. Or the opposite - being so fidgety or restless that you have been moving around a lot more than usual: several days 9. Thoughts that you would be better off or of hurting yourself in some way: several days Total score: 17 Depression Screening Interpretation: Positive Depression Screening Follow-up: Existing condition and In treatment Depression Screening Done: Yes 61477 - PHQ-9 Billing: Yes Source: Developed by Drs. Gus Sandoval, Aurelia Rice, Balaji Mason and colleagues, with an educational shoaib from [employer]. Thrive Questionnaire Date Thrive assessed: 03/15/24 I am a: Patient What is your living situation today?: I have a steady place to live Within the past 12 months, did the food you bought not last and you didn't have the money to get more?: Never true Within the past 12 months, did you worry whether your food would run out before you got money to buy more?: Never true Do you have trouble paying for medicines?: No Do you have trouble getting transportation to medical appointments?: No Do you have trouble paying your heating and electricity bill?: No Do you have trouble taking care of your child, family member or friend?: No Do you have trouble with day-to-day activities such as bathing, preparing meals, shopping, managing finances, etc.?: No Are you currently unemployed and looking for a job?: No Are you interested in more education?: No Please select the resources that you would like help with: None Currently or been in a relationship where the following occur: No concerns reported THRIVE Score: 0 AUDIT C Alcohol Use Questionnaire (AUDIT-C) 1. How often do you have a drink containing alcohol?: 2-4 times a month 2. How many drinks containing alcohol do you have on a typical day when you are drinking?: 5 or 6 3. How often do you have six or more drinks on one occasion?: Never Total Score: 4 Score Reviewed/Action Taken: Yes KANE-7 AMB Questionnaire KANE-7 Date KANE - 7 assessed: 03/15/24 Feeling nervous, anxious, or on edge: 0 = Not at all Not being able to stop or control worryin = Not at all Worrying too much about different things: 0 = Not at all Trouble relaxin = Not at all Being so restless that it is hard to sit still: 0 = Not at all Becoming easily annoyed or irritable: 0 = Not at all Feeling afraid as if something awful might happen: 0 = Not at all Total KANE-7 score (0-4 normal; 5-9 mild; 10-14 moderate; 15-21 severe): 0 Source: Developed by Drs. Gus Sandoval, Aurelia Rice, Balaji Mason and colleagues, with an educational shoaib from [employer]. Review of Systems Const Denies chills, Reports difficulty sleeping (at times), Denies fatigue, Denies fever(s) and Denies headache(s) ENT Denies dysphagia, Denies dizziness, Denies otalgia, Denies headache(s), Denies neck pain, Denies odynophagia and Denies sore throat Card Denies chest pain (occasional chest discomfort - see HPI), Reports palpitations (occasional sensations of palpitations) and Denies dyspnea Resp Denies chest congestion, Denies cough and Denies dyspnea GI Denies abdominal pain, Reports constipation (on and off), Denies dysphagia, Denies heartburn, Denies diarrhea, Denies nausea, Denies odynophagia and Denies vomiting Denies dysuria Musc Denies back pain, Denies arthralgias and Denies neck pain Skin/Breast Denies rash Neuro Denies dizziness, Denies headache(s) and Denies paresthesias Psych Reports anxiety, Reports depression (controlled on Rx), Denies auditory hallucinations and Denies visual hallucinations Endo Denies fatigue and Reports palpitations (occasional sensations of palpitations) Aquilino/Lymph Denies easy bruising Physical exam (Primary Care) Vital Signs: Last Vital Signs Pulse 85 03/15/24 17:13 BP 102/68 03/15/24 17:13 Pulse Ox 98 03/15/24 17:13 Oxygen Delivery Method Room Air 03/15/24 17:13 BMI result Body Mass Index 26.1 Tobacco/Smoking Status: Tobacco use Status Tobacco use date assessed 03/15/24 03/15/24 17:20 Patient Tobacco Use Status Never used Tobacco 03/15/24 17:20 Tobacco use type Cigarette 03/15/24 17:20 e-Cigarette/Vaping Use Never Used 03/15/24 17:20 PHQ-9: PHQ-9 Score PHQ-9: Total score 17 03/15/24 17:51 Depression Screening Interpretation: Positive Depression Screening Follow-up: Existing condition and In treatment Thrive Assessment: Date of Thrive Assessment Date Thrive assessed 03/15/24 03/15/24 17:20 Currently or been in a relationship where the following occur: No concerns reported Const General: no acute distress and alert HENMT Throat: Yes posterior oropharynx normal and Yes tonsils normal (no TP congestion) Neck Neck: Yes no lymphadenopathy and Yes supple Thyroid: Thyroid normal Resp Auscultation: clear to auscultation bilaterally, no rales and no wheezes Cardio Rate: regular rate Rhythm: regular rhythm Heart sounds: no murmurs GI Palpation (GI): Soft to palpation and nontender Auscultation: normal bowel sounds General: Yes no CVA tenderness Back/Spine/Pelvis Back: no CVA tenderness Skin Rashes: no rashes Extrem General: Yes no clubbing, cyanosis or edema Coding Level of Care Code Est Pt Level 4 (32417) Diagnoses Palpitations R00.2 Elevated blood pressure reading R03.0 Migraine without aura and without status migrainosus, not intractable G43.009 Migraine type: without aura Status migrainosus presence: without status migrainosus Intractability: not intractable Gastroesophageal reflux disease without esophagitis K21.9 Esophagitis presence: without esophagitis Vitamin D deficiency E55.9 Hepatic steatosis K76.0 Constipation, unspecified constipation type K59.00 Constipation type: unspecified constipation type Seasonal allergic rhinitis, unspecified trigger J30.2 Allergic rhinitis trigger: unspecified Allergic rhinitis seasonality: seasonal Attention deficit hyperactivity disorder (ADHD), combined type F90.2 Attention deficit-hyperactivity disorder type: combined inattentive-hyperactive Schizophrenia, unspecified type F20.9 Schizophrenia type: unspecified Overweight (BMI 25.0-29.9) E66.3 Additional Codes PHQ-9 - 84165 - PHQ-9 Billing: Yes ([id number]) Assessment & Plan Assessment & Plan (1) Palpitations: Code(s): R00.2 - Palpitations Category: Medical Plan: Have reassured patient today that her recent cardiac workups, including stress testing and extended Holter monitor, have all come back normal and do not show any evidence of heart disease Her Holter monitor showed predominantly sinus rhythm with very rare ectopies and patient's symptom diary mostly correlate with sinus rhythm Patient continues to complain of on and off chest sensations/symptoms, especially at night when she is in bed - have advised her that her anxiety appears to be contributing to a lot of her symptoms and that she should discuss this further with her psychiatrist at her next upcoming appointment as what she is currently on do not appear to be enough in controlling her mood symptoms (2) Elevated blood pressure reading: Code(s): R03.0 - Elevated blood-pressure reading, without diagnosis of hypertension Category: Medical Plan: Have reassured patient that the 117 mm systolic BP reading that she obtained a couple of days ago is likely an error as all of her other blood pressure readings have consistently shown normal systolic blood pressure ranging between 100-120 mm Have advised her that this does not mean that she now has high blood pressure and have encouraged her to continue with healthy lifestyle changes and diet choices Have advised patient also that she does not need to continue checking her blood pressure regularly or daily at this time, as this will likely just contribute to her anxiety (3) Migraines: Code(s): G43.909 - Migraine, unspecified, not intractable, without status migrainosus Category: Medical Qualifiers: Migraine type: without aura Status migrainosus presence: without status migrainosus Intractability: not intractable Qualified Code(s): G43.009 - Migraine without aura, not intractable, without status migrainosus Plan: Reinforced avoidance of all potential migraine triggers Head CT done in January 2021 came out normal Her headaches have improved a lot with prophylactic Tx with Topiramate 25 mg Q HS She did experience some recurrent dizziness when her Topiramate was increased to 50 mg Q HS briefly by neurology and she has since been cut back to 25 mg Q HS Patient also takes Sumatriptan 50 mg PRN for headaches Follow up with neurology as scheduled (4) GERD (gastroesophageal reflux disease): Code(s): K21.9 - Gastro-esophageal reflux disease without esophagitis Category: Medical Qualifiers: Esophagitis presence: without esophagitis Qualified Code(s): K21.9 - Gastro-esophageal reflux disease without esophagitis Plan: Dietary restrictions reinforced Her upper GI series and barium swallow done over the past couple of years were both normal Continue Omeprazole 40 mg QD and Famotidine 20 mg Q HS She also appears to have some symptoms of IBS that are triggered when she feels stressed/anxious Follow up with GI as scheduled (5) Vitamin D deficiency: Code(s): E55.9 - Vitamin D deficiency, unspecified Category: Medical Plan: Continue Vitamin D3 2000 units QD (6) Hepatic steatosis: Code(s): K76.0 - Fatty (change of) liver, not elsewhere classified Category: Medical Plan: She recently had abdominal US done (in December 2023) to further evaluate her elevated LFTs on her labs back in October 2023 She was advised that her abdominal US came back normal except for findings of hepatic steatosis Have explained to patient that this mostly means that she has a fatty liver and that this is most commonly related to weight issues and that she does not have any chronic liver disease Have advised her that losing some weight should get this back to normal and that no other intervention necessary at this time Her LFTs have since returned back to normal on her recent labs She is advised to avoid taking OTC Tylenol or acetaminophen in large doses at over 2000 mg a day and to also avoid excessive consumption of alcohol as both of these can also contribute to elevations of her liver enzymes (7) Constipation: Comment: Continue bowel regimen colace maintain HFD Avoid straining, Citrucel Code(s): K59.00 - Constipation, unspecified Category: Medical Qualifiers: Constipation type: unspecified constipation type Qualified Code(s): K59.00 - Constipation, unspecified Plan: Patient is again encouraged on increased oral fluids and dietary fiber Continue Colace 200 mg Q HS PRN; she was also taking Citrucel 500 mg BID previously but she states that she has not been taking this lately (8) Allergic rhinitis: Code(s): J30.9 - Allergic rhinitis, unspecified Category: Medical Qualifiers: Allergic rhinitis trigger: unspecified Allergic rhinitis seasonality: seasonal Qualified Code(s): J30.2 - Other seasonal allergic rhinitis Plan: Continue Cetirizine 10 mg QD PRN and Fluticasone 50 mcg 2 sprays to each nostril QD PRN (9) Attention deficit hyperactivity disorder (ADHD): Code(s): F90.9 - Attention-deficit hyperactivity disorder, unspecified type Category: Medical Qualifiers: Attention deficit-hyperactivity disorder type: combined inattentive-hyperactive Qualified Code(s): F90.2 - Attention-deficit hyperactivity disorder, combined type Plan: Continue Focalin XR 10 mg QD Follow-up with Psychiatry as scheduled (10) Schizophrenia: Code(s): F20.9 - Schizophrenia, unspecified Category: Medical Qualifiers: Schizophrenia type: unspecified Qualified Code(s): F20.9 - Schizophrenia, unspecified Plan: Continue Olanzapine 7.5 mg QD, Clonidine 0.2 mg Q HS and Diazepam 2 mg PRN Follow up with psychiatry as scheduled - she clearly appears to still have a lot of anxiety issues at present that are affecting her perceptions of her other symptoms and is encouraged to discuss this further with her psychiatrist at her upcoming appointment with them (11) Overweight (BMI 25.0-29.9): Code(s): E66.3 - Overweight Category: Medical Plan: Reinforced diet/exercise as tolerated/lose weight Plan To return as scheduled in September 2024 for her next annual physical examination Patient is reminded to get her labs (ordered today) done just before she comes in for her next annual physical examination Orders: Orders Complete Blood Count Auto Diff 09/04/24 D64.9 - Anemia, unspecified, Z00.00 - Encounter for general adult medical examination without abnormal findings TSH reflex Free T4 09/04/24 E78.00 - Pure hypercholesterolemia, unspecified, Z00.00 - Encounter for general adult medical examination without abnormal findings Vitamin D 25-OH Total 09/04/24 E55.9 - Vitamin D deficiency, unspecified, Z00.00 - Encounter for general adult medical examination without abnormal findings Comprehensive Met. Panel 09/04/24 Z00.00 - Encounter for general adult medical examination without abnormal findings UA CC w/rflx Micro + Cult 09/04/24 R30.0 - Dysuria, Z00.00 - Encounter for general adult medical examination without abnormal findings Cholesterol 09/04/24 Z00.00 - Encounter for general adult medical examination without abnormal findings
== END 2024-03-15 17:52 | disposition home or self-care (01) ==
PROVIDERS: PCP Internal Medicine; Visit Provider Internal Medicine
DX: R00.2 Palpitations (principal); R03.0 Elevated blood-pressure reading, without diagnosis of hypertension; G43.009 Migraine without aura, not intractable, without status migrainosus; F20.9 Schizophrenia, unspecified; K21.9 Gastro-esophageal reflux disease without esophagitis; E55.9 Vitamin D deficiency, unspecified; K76.0 Fatty (change of) liver, not elsewhere classified; K59.00 Constipation, unspecified; J30.2 Other seasonal allergic rhinitis; F90.2 Attention-deficit hyperactivity disorder, combined type; E66.3 Overweight

== ENCOUNTER 2024-05-14 08:52 | Outpatient (AMB) | payer OTHER, SELFPAY ==
--- NOTE | 2024-05-14 09:05 | MHC.PC.OV ---
Vital Signs 05/14/24 09:07 Height 5 ft 3 in Weight 143 lb 4 oz BMI 25.4 BP 110/62 Blood Pressure Location Lt brachial Position Sitting Pulse 68 Pulse Source Pulse Oximeter Temp 97.1 F Temp Source Skin Pulse Oximetry (%) 98 Oxygen Delivery Method Room Air Intake Visit Reasons: ABDOMINAL PAIN Intake Note: Patient is here to follow up on right side stomach pain. Household Personal Assistant Required: No Envelope Fold Operator: Not Required per policy Accompanied by: Self / Same As Patient Allergies peanut Allergy (Severe, Verified 05/14/24 09:13) Nausea and Vomiting Seasonal Allergies Allergy (Severe, Verified 05/14/24 09:13) Eye Swelling walnut Allergy (Severe, Verified 05/14/24 09:13) Difficulty Swallowing grass pollen-perennial rye, standar Allergy (Unknown, Verified 05/14/24 09:13) Cough topiramate Adverse Reaction (Mild, Verified 05/14/24 09:13) dizzy Medication List - Last Reconciled 05/14/24 by JESUS Barillas cetirizine 10 mg PO DAILY clonidine HCl 0.2 mg PO BEDTIME diazepam 2 mg PO ONCE PRN famotidine 20 mg PO BEDTIME 30 days ferrous sulfate 325 mg PO DAILY fluticasone propionate 50 mcg/actuation 0 mcg intranasal olanzapine 7.5 mg PO BEDTIME omeprazole 20 mg PO DAILY Tobacco use date assessed: 05/14/24 Dental Screening Dental Screen Date: 05/14/24 Did you have a dental visit in the last 12 months?: Yes Did you have a dental problem in the last 6 months where you did not have access to dental care?: No Was dental information given to patient?: Patient has dentist HPI ABDOMINAL PAIN HPI Details Patient is a 23 old female with significant past medical history GERD, ADHD, schizophrenia, IBS, migraines Patient is presenting with concerns that she had an ultrasound on 12/26/2023 that showed that she had hepatic steatosis She is concerned that she is have fatty liver and cancer runs in her family The patient ALT was slightly elevated on 2 previous labs but normalized and the most current lab 03/15/2024 The patient would like her fatty liver to be worked up and is also requesting a 2nd opinion On exam patient noted with positive Daugherty's sign, mild tenderness in the epigastrium and periumbilical areas-upper GI series done on 01/07/2024 showed small type 1 hiatal hernia thickened appearance of the areae gastricae-suggestive of gastritis Patient denies shortness of breath, chest pain, heart palpitation. She endorses heartburn with certain foods she does have an order for omeprazole patient reports using omeprazole as needed. Discussed with patient that the omeprazole works better if she takes it before eating also gave the patient a copy of the FODMAP diet. Discussed with patient about start eliminating certain foods to see what is triggering some of her symptoms. will order an ultrasound with elastography and referred to GI for second opionion. [facility] Medical History (Updated 05/15/24 @ 16:25 by JESUS Barillas) Hepatic steatosis Vitamin D deficiency Overweight (BMI 25.0-29.9) Attention deficit hyperactivity disorder (ADHD) Allergic rhinitis Environmental allergies Schizophrenia Elevated LFTs Migraines Surgical History Hx of wisdom tooth extraction History of appendectomy Family History Mother No problems noted. Father No problems noted. Social History Housing: House Alcohol intake: never Patient Tobacco Use Status: Never used Tobacco Tobacco use type: Cigarette e-Cigarette/Vaping Use: Never Used Second Hand Smoke Exposure: Yes Substance Use Type: Marijuana Substance Use Frequency: Weekly service: No Current occupational status: student Cognitive needs: No Hearing needs: No Vision needs: Yes (Glasses) Female Reproductive History Menstrual Age of Menarche: 12 Questionnaire PHQ-9 Over the last 2 weeks, how often have you been bothered by any of the following problems? 1. Little interest or pleasure in doing things: more than half the days 2. Feeling down, depressed, or hopeless: more than half the days 3. Trouble falling or staying asleep, or sleeping too much: nearly every day 4. Feeling tired or having little energy: nearly every day 5. Poor appetite or overeating: several days 6. Feeling bad about yourself - or that you are a failure or have let yourself or your family down: several days 7. Trouble concentrating on things, such as reading the newspaper or watching television: nearly every day 8. Moving or speaking so slowly that other people could have noticed. Or the opposite - being so fidgety or restless that you have been moving around a lot more than usual: several days 9. Thoughts that you would be better off or of hurting yourself in some way: several days Total score: 17 Depression Screening Interpretation: Positive Depression Screening Follow-up: Existing condition and In treatment Depression Screening Done: Yes 88964 - PHQ-9 Billing: Yes Source: Developed by Drs. Gus Sandoval, Aurelia Rice, Balaji Mason and colleagues, with an educational shoaib from [employer]. Thrive Questionnaire Date Thrive assessed: 05/14/24 I am a: Patient What is your living situation today?: I have a steady place to live Within the past 12 months, did the food you bought not last and you didn't have the money to get more?: Never true Within the past 12 months, did you worry whether your food would run out before you got money to buy more?: Never true Do you have trouble paying for medicines?: No Do you have trouble getting transportation to medical appointments?: No Do you have trouble paying your heating and electricity bill?: No Do you have trouble taking care of your child, family member or friend?: No Do you have trouble with day-to-day activities such as bathing, preparing meals, shopping, managing finances, etc.?: No Are you currently unemployed and looking for a job?: No Are you interested in more education?: No Please select the resources that you would like help with: None Currently or been in a relationship where the following occur: No concerns reported THRIVE Score: 0 AUDIT C Alcohol Use Questionnaire (AUDIT-C) 1. How often do you have a drink containing alcohol?: 2-4 times a month 2. How many drinks containing alcohol do you have on a typical day when you are drinking?: 1 or 2 Total Score: 2 KANE-7 AMB Questionnaire KANE-7 Date KANE - 7 assessed: 05/14/24 Feeling nervous, anxious, or on edge: 0 = Not at all Not being able to stop or control worryin = Not at all Worrying too much about different things: 0 = Not at all Trouble relaxin = Not at all Being so restless that it is hard to sit still: 0 = Not at all Becoming easily annoyed or irritable: 0 = Not at all Feeling afraid as if something awful might happen: 0 = Not at all Total KANE-7 score (0-4 normal; 5-9 mild; 10-14 moderate; 15-21 severe): 0 Source: Developed by Drs. Gus Sandoval, Aurelia Rice, Balaji Mason and colleagues, with an educational shoaib from [employer]. KANE-7 Assessment Billing KANE-7 Assessment Tool: KANE-7 Assessment 87247 Review of Systems Const Details: Denies chills, Denies fatigue, Denies fever(s), Denies headache(s) and Denies weakness HEENT Denies change in vision, Denies dizziness, Denies headache(s), Denies hearing loss, Denies nasal congestion, Denies sinus pain, Denies sinus pressure and Denies sore throat Card Denies chest pain, Denies lightheadedness, Denies dyspnea and Denies other (palpitations) Resp Denies cough, Denies dyspnea and Denies wheezing GI recurrent abdominal pain, Denies melena, Denies hematochezia, Denies change in bowel habits, +dyspepsia with certain foods and Denies nausea Denies hematuria and Denies dysuria Musc Denies abnormal gait, Denies myalgias, Denies arthralgias, Denies numbness and Denies tingling Skin/Breast Denies rash, Denies unusual bruising and Denies wounds other: reports that her hands were pale, reports hyperpigmentation to bilateral hands-appears like a mild case of eczema-encouraged frequent moisturizing hands Neuro Denies abnormal gait, Denies dizziness, Denies headache(s), Denies memory loss, Denies numbness, Denies Sensory deficit (Neuro), Denies tingling and Denies weakness Psych reports anxiety, Denies depression and Denies memory loss Endo Denies cold intolerance, Denies fatigue, Denies heat intolerance, Denies polydipsia and Denies polyuria Aquilino/Lymph Denies easy bleeding and Denies easy bruising Aller/Immun Denies wheezing Physical exam (Primary Care) Vital Signs: Last Vital Signs Temp 97.1 F 05/14/24 09:07 Pulse 68 05/14/24 09:07 BP 110/62 05/14/24 09:07 Pulse Ox 98 05/14/24 09:07 Oxygen Delivery Method Room Air 05/14/24 09:07 BMI result Body Mass Index 25.4 Tobacco/Smoking Status: Tobacco use Status Tobacco use date assessed 05/14/24 05/14/24 09:12 Patient Tobacco Use Status Never used Tobacco 05/14/24 09:12 Tobacco use type Cigarette 05/14/24 09:12 e-Cigarette/Vaping Use Never Used 05/14/24 09:12 PHQ-9: PHQ-9 Score PHQ-9: Total score 17 05/14/24 09:31 Depression Screening Interpretation: Positive Depression Screening Follow-up: Existing condition and In treatment Thrive Assessment: Date of Thrive Assessment Date Thrive assessed 05/14/24 05/14/24 09:12 Currently or been in a relationship where the following occur: No concerns reported Const Other: General: no acute distress, well developed, alert and awake Nutritional Appearance: well nourished Orientation/consciousness: patient oriented x3 HENMT Head: Yes normocephalic and Yes atraumatic Ears: hearing grossly normal bilaterally and TM's normal bilaterally General nose exam: Normal external nose present and Normal nares present Mouth: Normal oral and palatal mucosa present and moist mucous membranes Eyes Pupils: Equal, round and reactive pupils present and Pupil accommodation reflex normal EOM: EOMs intact bilaterally Neck Neck: Yes normal visual inspection, Yes no lymphadenopathy and Yes trachea midline Thyroid: Thyroid normal Resp Effort & Inspection: normal respiratory effort Auscultation: clear to auscultation bilaterally Cardio Rate: regular rate Rhythm: regular rhythm Heart sounds: S1 normal heart sound present, S2 normal heart sound present, no gallops, no murmurs and no rubs Bruits: no abdominal aortic bruits and no carotid bruits GI Palpation (GI): +daugherty's sign, +pain in the epigastric and periumbilicus area Auscultation: normal bowel sounds General: Yes no CVA tenderness Back/Spine/Pelvis Back: no CVA tenderness Cervical Spine: cervical ROM normal and No Cervical spine tenderness Thoracic/Lumbar Spine: No lumbar spinal tenderness Skin General: warm and dry. Normal skin color. Normal skin turgor Lesions: no lesions Rashes: reports hyperpigmentation to bilateral hands-appears like a mild case of eczema-encouraged frequent moisturizing hands Trauma: no lacerations or abrasions Wounds: no wounds Nails: normal Neuro General: patient oriented x3, gait normal Cranial nerves: Yes Equal, round and reactive pupils present Cognition (Neuro): normal cognition Gait exam (Neuro): Normal gait present Extrem General: Yes normal to inspection, No edema and No calf tenderness Psych Appearance: grossly normal Affect: normal affect Attitude: cooperative Thought process: Normal thought process present Coding Level of Care Code Est Pt Level 4 (42074) Diagnoses RUQ abdominal pain R10.11 Hepatic steatosis K76.0 Hiatal hernia K44.9 Hand eczema L30.9 Gastroesophageal reflux disease without esophagitis K21.9 Esophagitis presence: without esophagitis Schizophrenia, unspecified type F20.9 Schizophrenia type: unspecified Additional Codes PHQ-9 - 17331 - PHQ-9 Billing: Yes ([id number]) KANE-7 Assessment Billing - KANE-7 Assessment Tool: KANE-7 Assessment [id number] ([id number]) Time Spent (min) 37 Assessment & Plan Assessment & Plan (1) RUQ abdominal pain: Code(s): R10.11 - Right upper quadrant pain Category: Medical Plan: The patient hand a abdominal US done in 12/2023 that showed normal findings except hepatic steatosis. Will referred the pain to GI for 2nd opinion per request. An abdominal US with elastography was also ordered to farther evaluate-the patient is concern about previous finding of hepatic steatosis (2) Hepatic steatosis: Code(s): K76.0 - Fatty (change of) liver, not elsewhere classified Category: Medical Plan: Patient is presenting with concerns that she had an ultrasound on 12/26/2023 that showed that she had hepatic steatosis She is concerned that she is have fatty liver and cancer runs in her family The patient ALT was slightly elevated on 2 previous labs but normalized and the most current lab 03/15/2024 The patient would like her fatty liver to be worked up and is also requesting a 2nd opinion On exam patient noted with positive Daugherty's sign, mild tenderness in the epigastrium and periumbilical areas-upper GI series done on 01/07/2024 showed small type 1 hiatal hernia thickened appearance of the areae gastricae-suggestive of gastritis --abdominal US with elastography ordered and the patient was referred to GI (3) Hiatal hernia: Comment: 01/2024 Small type 1 Code(s): K44.9 - Diaphragmatic hernia without obstruction or gangrene Category: Medical Plan: complain of mild tenderness in the periumbilicus area. Seems to be more in the in the epigastric region and is most like relates to the GERD. Encouraged the patient to take her omeprazole daily before eating and to take her famotidine 20 mg at bedtime. GI referral was placed (4) Hand eczema: Code(s): L30.9 - Dermatitis, unspecified Category: Medical Plan: mild case of ezcema appearing areas on bilateral hands, encouraged the patient to moisturize her hands often (5) GERD (gastroesophageal reflux disease): Code(s): K21.9 - Gastro-esophageal reflux disease without esophagitis Category: Medical Qualifiers: Esophagitis presence: without esophagitis Qualified Code(s): K21.9 - Gastro-esophageal reflux disease without esophagitis Plan: She endorses heartburn with certain foods she does have an order for omeprazole patient reports using omeprazole as needed. Discussed with patient that the omeprazole works better if she takes it before eating also gave the patient a copy of the FODMAP diet. Discussed with patient about start eliminating certain foods to see what is triggering some of her symptoms. Continue famotidine 20 mg at bedtime. (6) Schizophrenia: Code(s): F20.9 - Schizophrenia, unspecified Category: Medical Qualifiers: Schizophrenia type: unspecified Qualified Code(s): F20.9 - Schizophrenia, unspecified Plan: Continue clonidine 0.2 mg at bedtime, diazepam 2 mg once p.r.n., olanzapine 7.5 mg at bedtime Denies SI/HI Follow up with Psychiatry as scheduled Orders: Orders US abdomen comp w elastography 05/14/24 K21.9 - Gastro-esophageal reflux disease without esophagitis, K76.0 - Fatty (change of) liver, not elsewhere classified, R10.11 - Right upper quadrant pain Referrals Gastroenterology Referral K21.9 - Gastro-esophageal reflux disease without esophagitis, K76.0 - Fatty (change of) liver, not elsewhere classified, R10.11 - Right upper quadrant pain
[2024-05-14 09:07] VITALS: BP 110/62; PULSE 68; TEMP 36.2; O2SAT 98; BMI 25.4
== END 2024-05-14 09:44 | disposition home or self-care (01) ==
PROVIDERS: PCP Internal Medicine
DX: R10.11 Right upper quadrant pain (principal); F20.9 Schizophrenia, unspecified; K76.0 Fatty (change of) liver, not elsewhere classified; K44.9 Diaphragmatic hernia without obstruction or gangrene; L30.9 Dermatitis, unspecified; K21.9 Gastro-esophageal reflux disease without esophagitis

== ENCOUNTER → 2024-05-14 08:52 | Outpatient (BNVA) | payer OTHER, SELFPAY | PROVIDERS: PCP Internal Medicine | DX: R10.11 Right upper quadrant pain (principal); K76.0 Fatty (change of) liver, not elsewhere classified; K44.9 Diaphragmatic hernia without obstruction or gangrene | CPT/HCPCS: 96127; 99212 ==

== ENCOUNTER 2024-05-17 09:03 | Outpatient (AMB) | payer OTHER, SELFPAY ==
[2024-05-17 09:10] VITALS: BP 100/60; BMI 25.2
--- NOTE | 2024-05-17 09:10 | A.OFFVIS_ITS ---
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 Hotel Supplies Salesperson Required: No Hotel Supplies Salesperson Services: Hotel Supplies Salesperson Present Information Interpreted: clinical only Brazing Furnace Feeder: Brazing Furnace Feeder Present Allergies peanut Allergy (Severe, Verified 05/17/24 09:11) Nausea and Vomiting Seasonal Allergies Allergy (Severe, Verified 05/17/24 09:11) Eye Swelling walnut Allergy (Severe, Verified 05/17/24 09:11) Difficulty Swallowing grass pollen-perennial rye, standar Allergy (Unknown, Verified 05/17/24 09:11) Cough topiramate Adverse Reaction (Mild, Verified 05/17/24 09:11) dizzy Medication List - Last Reconciled 05/17/24 by Deysi Dobbs CNM cetirizine 10 mg PO DAILY clonidine HCl 0.2 mg PO BEDTIME diazepam 2 mg PO ONCE PRN famotidine 20 mg PO BEDTIME 30 days ferrous sulfate 325 mg PO DAILY fluticasone propionate 50 mcg/actuation 0 mcg intranasal olanzapine 7.5 mg PO BEDTIME omeprazole 20 mg PO DAILY Is last menstrual period known: Yes Last menstrual period: 05/13/24 HPI HPI 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 She feels she is in good health but she was told she had fatty liver and she is concerned about that and randomly sometimes at times she will have pain on either her right or left side low down but it is only when she coughs or sneezes her makes a son. She used to do martial arts in her school but not in college because she was too busy so she does not exercise at the moment. She says the pain is not where her liver as and it is not there all the time it happens randomly when she coughs or sneezes she says she also has been told she has an umbilical hernia but it is not big enough to do anything about (she does have an umbilical piercing). [facility] Medical History Hepatic steatosis Vitamin D deficiency Overweight (BMI 25.0-29.9) Attention deficit hyperactivity disorder (ADHD) Allergic rhinitis Environmental allergies Schizophrenia Elevated LFTs Migraines Surgical History Hx of wisdom tooth extraction History of appendectomy Family History Mother No problems noted. Father No problems noted. Social History Housing: House Alcohol intake: never Patient Tobacco Use Status: Never used Tobacco Tobacco use type: Cigarette e-Cigarette/Vaping Use: Never Used Second Hand Smoke Exposure: Yes Substance Use Type: Marijuana service: No Current occupational status: student Cognitive needs: No Hearing needs: No Vision needs: Yes (Glasses) Female Reproductive History Menstrual Age of Menarche: 12 Duration of menses: 3-5 days Date of last menstrual period: 05/13/24 control method: none Total pregnancies: 0 Date of last pap smear: 05/13/23 (negative) History of abnormal pap smear: No Physical Exam Vital Signs: Last Vital Signs BP 100/60 05/17/24 09:10 BMI result Body Mass Index 25.2 Const Other: Patient has very good muscle tone no abdominal bulging or tension or pain elicited on palpation. General: healthy appearing, comfortable, no acute distress, well developed and alert Nutritional Appearance: average body habitus Orientation/consciousness: patient oriented x3 Limitations: no limitations HEENT Head: Yes normocephalic Neck Neck: Yes normal visual inspection Chest Chest palpation & inspection: normal inspection of the chest Breast/axilla inspection: normal inspection of the breasts and normal inspection of the axillae Breast/axilla palpation: normal palpation of the breasts and normal palpation of the axillae Resp Effort & Inspection: normal respiratory effort GI Inspection: Yes normal to inspection, No Abdominal wall edema and No distended Palpation (GI): Soft to palpation and nontender Other: External exam within normal limits vagina is pink and moist her cervix is nulliparous pink round smooth healthy appearing normal scant white discharge cervix tightly closed long closed mobile nontender uterus small midposition to anteverted mobile nontender adnexa not enlarged nontender good muscle tone. General: Yes bladder normal to palpation External Female Exam: normal external appearance and normal appearance of the urethra Speculum Exam - Vagina: normal appearance of the vagina, normal palpation and normal vaginal discharge Speculum Exam - Cervix: normal appearance of the cervix, normal palpation and nontender Bimanual exam- vagina & uterus: normal bimanual exam, normal palpation, uterine size normal, bladder normal to palpation, consistency normal, normal palpation, uterine mobility normal, uterine shape normal, No Cervical tenderness present, non-tender and no cervical motion tenderness Bimanual Exam- Adnexa, other: normal adnexae, no masses, normal and No adnexal tenderness Neuro General: patient oriented x3 Results Reviewed Results Reviewed: hattie: Cleo Schafer Age/Sex: 22/F Attending: Deysi Dobbs CNM : 2000 Submitted by: Deysi Dobbs CNM Copies to: Tobias Quinteros MD MR #: [id number] Status: DEP REF Collected: 05/13/23 Location: .LAB Received: 05/14/23 Interpretation Satisfactory for evaluation. Negative for intraepithelial lesion or malignancy. Clinical Information LMP: 05/05/2023 Previous PAP test: No previous pap, WNL Material Received ThinPrep-Cervical Copies To Tobias Quinteros MD [address] [place] [address] ZARI Sung [id number] Deysi Dobbs CNM [address] [place] [address] Z[place]I Sung [id number] Electronically Signed By: EDWARDO Landry (ASCP) 05/27/23 1036 The Pap Test is a screening procedure with the inherent possibility of both false negative and false positive results. Results should be interpreted in the context of historic and current clinical findings. Reliability of the Pap Test is enhanced by performing the test on a regular repetitive basis. Patient: Cleo Schafer Age/Sex: 22/F MR#: [id number] Page 1 of 1 Assessment & Plan Assessment & Plan (1) Cervical cancer screening: Comment: 05/13/2023 Pap is negative. Code(s): Z12.4 - Encounter for screening for malignant neoplasm of cervix Category: Medical (2) Well woman exam with routine gynecological exam: Code(s): Z01.419 - Encounter for gynecological examination (general) (routine) without abnormal findings Category: Medical (3) control counseling: Code(s): Z30.09 - Encounter for other general counseling and advice on contraception Category: Medical Plan -----Discussed in this visit the following: healthy balanced diet, regular and consistent exercise, getting recommended health screens, doing the best she can for her particular health concerns, kegel exercises, pap smear screening and followup recommendations, mammography screening and SBE, normal changes in cycles in her life stage--- . Reviewed her concerns about the random pains that happen if she makes sudden movements. Discussed the possibility of any sick good connection to the pain that would point more to ovarian origin however that is not her pattern. Additionally the pain she notes is fleeting and not very severe lasting maybe 5 or 10 seconds at most and only if she coughs sneeze or makes a sudden I discussed with her that the more likely scenario is that it is muscle strain. She said it was not anywhere near her liver and it also was not near the umbilical hernia that was also not evident either. Discussed that if it ever became very severe in or if she had any abdominal bulging that that should be checked out but if it was just mild and fleeting it might be less worrisome. I recommend that she consider multivitamin with folic acid and I discussed why as she is open and not contracepting all the time I reviewed signs and symptoms of ovulation and timing and that if she is not ready to conceive on a particular month when she is ovulating that that is an op portunity to use condoms. I also reviewed that we do not have full scope obstetric and midwifery practice and [place] any longer for 1st I highly recommend that she initiate care from the start year she want to deliver a that she has consider whether not she seen at [facility] or [address] [place] [address] and I discussed some differences and also the rationale for receiving all of her care in site from the start for continuity and comprehensive care and the rationale. Testing done today for gonorrhea chlamydia trichomoniasis as well as bacterial vaginosis and yeast and teaching done about the latter 2 as well and I offered screening for HIV hep B hep C syphilis but she is not interested at this time. rtc 1 yr or prn Orders: Orders CT NG by PCR Today N89.8 - Other specified noninflammatory disorders of vagina, Z20.2 - Contact with and (suspected) exposure to infections with a predominantly sexual mode of transmission Bacterial Vaginosis Panel Today N89.8 - Other specified noninflammatory disorders of vagina Coding Level of Care Code Est Pt Prev Care 18-39y(14900) Diagnoses Cervical cancer screening Z12.4 Well woman exam with routine gynecological exam Z01.419 control counseling Z30.09
== END 2024-05-17 09:58 | disposition home or self-care (01) ==
PROVIDERS: PCP Internal Medicine; Visit Provider Advanced Practice Midwife
DX: Z01.419 Encounter for gynecological examination (general) (routine) without abnormal findings (principal)
CPT/HCPCS: 99395; 99459

== ENCOUNTER 2024-05-17 09:03 | Outpatient (REF) | payer OTHER, SELFPAY ==
[2024-05-18 06:01] LABS: CT PCR NOT DETECTED (Not Detect.); NG PCR NOT DETECTED (Not Detect.)
[2024-05-18 13:14] LABS: Bacterial Vaginosis PCR NEGATIVE (Negative); Candida Group PCR NOT DETECTED (Not Detect); Candida glab krusei PCR NOT DETECTED (Not Detect); Trichomonas vaginalis PCR NOT DETECTED (Not Detect)
== END 2024-05-17 09:04 | disposition home or self-care (01) ==
LOC: HO.LAB 09:03
PROVIDERS: PCP Internal Medicine; Visit Provider Advanced Practice Midwife
DX: Z01.419 Encounter for gynecological examination (general) (routine) without abnormal findings (principal); N89.8 Other specified noninflammatory disorders of vagina; Z20.2 Contact with and (suspected) exposure to infections with a predominantly sexual mode of transmission
CPT/HCPCS: 81515; 87491; 87591; 99395; 99459

== ENCOUNTER 2024-06-08 15:48 | Outpatient (AMB) | payer OTHER, SELFPAY ==
--- NOTE | 2024-06-08 16:17 | MHC.PC.OV ---
Vital Signs 06/08/24 16:18 Height 5 ft 3 in Weight 143 lb BMI 25.3 BP 120/66 Blood Pressure Location Lt brachial Position Sitting Pulse 55 Pulse Source Pulse Oximeter Temp 97.3 F Temp Source Temporal Artery Scan Pulse Oximetry (%) 81 L Oxygen Delivery Method Room Air Intake Visit Reasons: rico DR Quinteros Intake Note: Patient is here today for RICO from Dr Quinteros Frame Expander Required: No Contract Processor: Not Required per policy Accompanied by: Self / Same As Patient Allergies peanut Allergy (Severe, Verified 06/08/24 16:26) Nausea and Vomiting Seasonal Allergies Allergy (Severe, Verified 06/08/24 16:26) Eye Swelling walnut Allergy (Severe, Verified 06/08/24 16:26) Difficulty Swallowing peach Allergy (Mild, Verified 06/08/24 16:26) Itching grass pollen-perennial rye, standar Allergy (Unknown, Verified 06/08/24 16:26) Cough topiramate Adverse Reaction (Mild, Verified 06/08/24 16:26) dizzy Medication List - Last Reconciled 06/08/24 by Merle Burgess PA-C cetirizine 10 mg PO DAILY clonidine HCl 0.2 mg PO BEDTIME diazepam 2 mg PO ONCE PRN famotidine 20 mg PO BEDTIME 30 days ferrous sulfate 325 mg PO DAILY fluticasone propionate 50 mcg/actuation 0 mcg intranasal olanzapine 7.5 mg PO BEDTIME omeprazole 20 mg PO DAILY Tobacco use date assessed: 06/08/24 Dental Screening Dental Screen Date: 05/14/[address] Quinteros HPI Details 23-year-old female with past medical history of migraine, schizophrenia, ADHD, GERD, constipation, IBS, hepatic steatosis last seen 05/2024 by nurse practitioner coming in for transfer of care.?In review of the notes, patient is being evaluated for right upper quadrant pain has ultrasound scheduled for 06/15/2024 and Gastroenterology follow up in July.? She was also recently seen by Gynecology 05/17/2024 for annual exam. Presenting with gastrointestinal concerns, and palpitations. GERD previously managed with omeprazole is under control with symptoms alleviated. Persistent symptoms include non-painful abdominal lump and post-fall chest sensations possibly due to cartilage irritation. Past medical history includes fatty liver disease with prior lab tests indicating improvement. Certain palpitations appear linked to lifestyle habits, specifically marijuana usage. Patient fell on ice a couple of weeks ago. [facility] Medical History Hepatic steatosis Vitamin D deficiency Overweight (BMI 25.0-29.9) Attention deficit hyperactivity disorder (ADHD) Allergic rhinitis Environmental allergies Schizophrenia Elevated LFTs Migraines Surgical History Hx of wisdom tooth extraction History of appendectomy Family History Mother No problems noted. Father No problems noted. Social History Housing: House Alcohol intake: never Patient Tobacco Use Status: Never used Tobacco Tobacco use type: Cigarette e-Cigarette/Vaping Use: Never Used Second Hand Smoke Exposure: Yes Substance Use Type: Marijuana service: No Current occupational status: student Cognitive needs: No Hearing needs: No Vision needs: Yes (Glasses) Female Reproductive History Menstrual Age of Menarche: 12 Questionnaire Thrive Questionnaire Date Thrive assessed: 05/14/24 KANE-7 AMB Questionnaire KANE-7 Date KANE - 7 assessed: 05/14/24 Source: Developed by Drs. Gus Sandoval, Aurelia Rice, Balaji Mason and colleagues, with an educational shoaib from [employer]. Review of Systems Const Denies body aches, Denies chills, Denies fever(s), Denies headache(s) and Denies poor appetite Eyes Reports no additional complaints ENT Denies dysphagia, Denies dizziness, Denies headache(s) and Denies odynophagia Card Denies chest pain, Denies syncope, Denies edema, Denies irregular heart rhythm, Denies lightheadedness and Denies dyspnea Resp Denies cough and Denies dyspnea GI Details: lower pubic area mass Denies abdominal pain, Denies constipation, Denies dysphagia, Denies diarrhea, Denies nausea, Denies odynophagia and Denies vomiting Reports no additional complaints Musc Reports no additional complaints and Denies abnormal gait Skin/Breast Reports system reviewed and no additional complaints, except as documented Neuro Denies abnormal gait, Denies dizziness, Denies syncope and Denies headache(s) Psych Reports no additional complaints Physical exam (Primary Care) Vital Signs: Last Vital Signs Temp 97.3 F 06/08/24 16:18 Pulse 55 06/08/24 16:18 BP 120/66 06/08/24 16:18 Pulse Ox 81 L 06/08/24 16:18 Oxygen Delivery Method Room Air 06/08/24 16:18 BMI result Body Mass Index 25.3 Tobacco/Smoking Status: Tobacco use Status Tobacco use date assessed 06/08/24 06/08/24 16:18 Patient Tobacco Use Status Never used Tobacco 06/08/24 16:18 Tobacco use type Cigarette 06/08/24 16:18 e-Cigarette/Vaping Use Never Used 06/08/24 16:18 Thrive Assessment: Date of Thrive Assessment Date Thrive assessed 05/14/24 06/08/24 16:18 Const General: cooperative, healthy appearing, comfortable and no acute distress Orientation/consciousness: patient oriented x3 HENMT Head: Yes normocephalic Ears: hearing grossly normal bilaterally General nose exam: Normal external nose present Eyes General: appearance normal, both eyes and all related structures Conjunctivae: conjunctivae normal Neck Neck: Yes full ROM and Yes no lymphadenopathy Resp Effort & Inspection: normal respiratory effort Auscultation: clear to auscultation bilaterally, no crackles, no rales, no rhonchi and no wheezes Cardio Rate: regular rate Rhythm: regular rhythm GI Other: no mass palpated in the suprapubic area Palpation (GI): Soft to palpation, not firm, nontender, no guarding, not rigid, no masses and No Rebound tenderness present Skin General skin exam: no rashes or lesions noted Neuro General: patient oriented x3 Gait exam (Neuro): Normal gait present Extrem General: Yes normal to inspection, Yes full ROM and No edema Psych Affect: normal affect Attitude: cooperative Insight: Good insight present (Psych) Judgement: Good judgement present (Psych) Coding Level of Care Code Est Pt Level 4 (64060) Diagnoses RUQ abdominal pain R10.11 Elevated blood pressure reading R03.0 Hepatic steatosis K76.0 Palpitations R00.2 Gastroesophageal reflux disease without esophagitis K21.9 Esophagitis presence: without esophagitis Overweight (BMI 25.0-29.9) E66.3 Assessment & Plan Assessment & Plan (1) RUQ abdominal pain: Code(s): R10.11 - Right upper quadrant pain Category: Medical Plan: The patient will continue monitoring her GERD with an option to resume omeprazole if needed. I advised lifestyle changes consistent with current management of GERD and fatty liver disease. Upcoming abdominal ultrasound (2) Elevated blood pressure reading: Code(s): R03.0 - Elevated blood-pressure reading, without diagnosis of hypertension Category: Medical Plan: Avoid salt intake and encourage healthy diet and regular exercise. (3) Hepatic steatosis: Code(s): K76.0 - Fatty (change of) liver, not elsewhere classified Category: Medical Plan: Healthy diet and regular exercise is encouraged. Continue to monitor LFTs. Referral placed to machine stoppage frequency checker (4) Palpitations: Code(s): R00.2 - Palpitations Category: Medical Plan: Holter monitor negative and negative cardiac stress test. (5) GERD (gastroesophageal reflux disease): Code(s): K21.9 - Gastro-esophageal reflux disease without esophagitis Category: Medical Qualifiers: Esophagitis presence: without esophagitis Qualified Code(s): K21.9 - Gastro-esophageal reflux disease without esophagitis Plan: Avoid trigger foods such as citrus, tomato products, soda, caffeine, spicy foods and other foods that may be irritating to your stomach. Avoid laying flat 3-4 hours after eating and elevate the head of the bed 30 degrees to prevent acid from moving into the esophagus. Continue on pantoprazole (6) Overweight (BMI 25.0-29.9): Code(s): E66.3 - Overweight Category: Medical Plan: Healthy diet and regular exercise is encouraged. Plan This note was constructed using voice recognition software. While every effort has been made to ensure accuracy and housing relocation, still areas may have been included sometimes these areas may affect the content or meeting of the given symptoms. Total time spent caring for the patient today was 30 minutes. This includes time spent before the visit reviewing the chart, time spent during the visit, and time spent after the visit and documentation. Patient was informed and verbally consented to the use of an ambient scribe for clinic note documentation during this visit. Orders: Referrals Senior Business Consultant Nutrition Referral K21.9 - Gastro-esophageal reflux disease without esophagitis, K59.00 - Constipation, unspecified, K76.0 - Fatty (change of) liver, not elsewhere classified
[2024-06-08 16:18] VITALS: BP 120/66; PULSE 55; TEMP 36.3; O2SAT 81; BMI 25.3
== END 2024-06-08 16:50 | disposition home or self-care (01) ==
PROVIDERS: PCP Internal Medicine
DX: R10.11 Right upper quadrant pain (principal); R03.0 Elevated blood-pressure reading, without diagnosis of hypertension; K76.0 Fatty (change of) liver, not elsewhere classified; R00.2 Palpitations; K21.9 Gastro-esophageal reflux disease without esophagitis; E66.3 Overweight

== ENCOUNTER → 2024-06-08 15:48 | Outpatient (BNVA) | payer OTHER, SELFPAY | PROVIDERS: PCP Internal Medicine | DX: R10.11 Right upper quadrant pain (principal); R03.0 Elevated blood-pressure reading, without diagnosis of hypertension; K76.0 Fatty (change of) liver, not elsewhere classified; R00.2 Palpitations; K21.9 Gastro-esophageal reflux disease without esophagitis; E66.3 Overweight | CPT/HCPCS: 99212 ==

== ENCOUNTER 2024-06-15 07:58 | Outpatient (REF) | payer OTHER, SELFPAY ==
--- NOTE | ~2024-06-15 | US_ITS ---
EXAMINATION: US ABDOMEN COMPLETE WITH LIVER ELASTOGRAPHY HISTORY: K76.0 - Fatty (change of) liver, not elsewhere classified TECHNIQUE: Real-time grayscale ultrasound imaging of the abdomen was performed and images were reviewed. COMPARISON: Comparison is made with the prior examination dated 12/31/2023. FINDINGS: Liver: The right lobe of the liver measures 16.0 cm in size. The left lobe of the liver measures 11.8 cm in size. The liver demonstrates normal homogeneous echotexture. No focal mass or intrahepatic biliary ductal dilatation is identified. There is normal hepatopedal flow in the portal vein. Ultrasound elastography of the liver was performed with 10 separate measurements of the liver parenchyma with the patient in the supine position. Measurements were obtained approximately 2 cm below Sara's capsule and perpendicular to the capsule. Images are of satisfactory quality. The median shear wave velocity is 1.44 m/s. The interquartile range/median (IQR/median) is 0.13. Gallbladder and biliary tree: The gallbladder is unremarkable, without evidence of calculi, wall thickening, or pericholecystic fluid. There is no sonographic Daugherty sign. The common bile duct is normal in caliber measuring 2 mm. Kidneys: The right kidney measures 11.0 cm in length. The left kidney measures 11.5 cm in length. The kidneys are unremarkable, without evidence of masses, hydronephrosis, or calculi. Pancreas: The pancreatic head, neck, and body are unremarkable. The pancreatic tail is obscured by bowel gas. Spleen: The spleen is normal in size and contour, measuring 11.1 cm in length. Abdominal aorta and inferior vena cava: The visualized portions of the abdominal aorta and inferior vena cava are normal in caliber. There is no free fluid in the abdomen. US/US abdomen comp w elastography IMPRESSION: Unremarkable abdominal ultrasound. The median shear wave velocity in the liver is 1.44 m/s, corresponding to a median liver stiffness of 6.30 kPa. The IQR/median value is 0.13. This is indicative of a quality data set. Findings are indicative of a low elastography value which rules out advanced chronic liver disease in asymptomatic patients. REFERENCE: Society of Radiologists in Ultrasound Liver Stiffness Thresholds (2020): LIVER STIFFNESS THRESHOLDS: *Shear wave velocity less than 1.3 m/s (Liver Stiffness equal or less than 5 kPa): High probability of being normal. *Shear wave velocity less than 1.7 m/s (Liver Stiffness less than 9 kPa): In the absence of other known clinical signs, rules out compensated advanced chronic liver disease. *Shear wave velocity between 1.7-2.1 m/s (Liver Stiffness 9-13 kPa): Suggestive of compensated advanced chronic liver disease but need further test for confirmation. *Shear wave velocity between 2.1-2.4 m/s (Liver Stiffness 13-17 kPa): Rules in compensated advanced chronic liver disease. *Shear wave velocity greater than 2.4 m/s (Liver Stiffness over 17 kPa): Suggestive of clinically significant portal hypertension. QUALITY OF DATA SET: *IQR/Median value equal or less than 0.15 implies a quality data set. *IQR/Median value over 0.15 implies a poor quality data set. SIGNIFICANT CHANGE FROM PRIOR EXAM: Significant change if liver stiffness measurement is 10% or greater from prior exam. OTHER CONSIDERATIONS: The stage of liver fibrosis may be overestimated in the setting of acute hepatitis, liver inflammation, elevated liver function tests, hepatic vascular congestion, obstructive cholestasis, non-fasting state, and infiltrative diseases such as amyloidosis and lymphoma. In some patients with NAFLD, the liver stiffness thresholds for compensated advanced chronic liver disease may be lower. In causes other than viral hepatitis and NAFLD, liver stiffness thresholds are not well established. Electronically signed by: Gus Celeste MD 06/15/2024 08:56 AM EDT
== END 2024-06-15 07:59 | disposition home or self-care (01) ==
LOC: HO.US 07:58
PROVIDERS: PCP Internal Medicine
DX: K76.0 Fatty (change of) liver, not elsewhere classified (principal); R10.11 Right upper quadrant pain; K21.9 Gastro-esophageal reflux disease without esophagitis
CPT/HCPCS: 76700; 76981

== ENCOUNTER → 2024-06-15 07:59 | Outpatient (BNV) | payer OTHER, SELFPAY | PROVIDERS: PCP Internal Medicine; Visit Provider Radiology Diagnostic Radiology | DX: K76.0 Fatty (change of) liver, not elsewhere classified (principal) | CPT/HCPCS: 76700 ==

== ENCOUNTER 2024-07-14 13:27 | Outpatient (AMB) | payer OTHER, SELFPAY ==
--- NOTE | 2024-07-14 13:27 | A.OFFVIS_ITS ---
Intake Visit Reasons: GERD/RUQ pain Intake Note: Cleo presents CC: She states that she is having GERD, Pains in the RUQ of her abdomen. She feels like she has a pain in her rectum that is new. She had a hemorrhoids and is not sure if this is something to do with that. She does also suffer from constipation. Allergies peanut Allergy (Severe, Verified 07/14/24 13:28) Nausea and Vomiting Seasonal Allergies Allergy (Severe, Verified 07/14/24 13:28) Eye Swelling walnut Allergy (Severe, Verified 07/14/24 13:28) Difficulty Swallowing peach Allergy (Mild, Verified 07/14/24 13:28) Itching sesame seed Allergy (Mild, Verified 07/14/24 13:28) Unknown grass pollen-perennial rye, standar Allergy (Unknown, Verified 07/14/24 13:28) Cough topiramate Adverse Reaction (Mild, Verified 07/14/24 13:28) dizzy HPI Comments Details: 23 y.o F with PMH of IBS who is here for a routine follow up as a video tele. Reports epigastric pain ongoing x few months. Assoc with nausea and hiccups. Better while sticking to low FODMAP diet. Appetite fluctuates. Takes omeprazole only PRN but does help when she does take it. Another issue is pressure sensation in rectum - worsens on constipation and straining. Sometimes blood on wiping. NO hx of FB insertion or anal trauma. Recently was taking fiber but that caused her to have diarrhea so holding that for now. [facility] Medical History Hepatic steatosis Vitamin D deficiency Overweight (BMI 25.0-29.9) Attention deficit hyperactivity disorder (ADHD) Allergic rhinitis Environmental allergies Schizophrenia Elevated LFTs Migraines Surgical History Hx of wisdom tooth extraction History of appendectomy Family History Mother No problems noted. Father No problems noted. Social History Housing: House Alcohol intake: never Patient Tobacco Use Status: Never used Tobacco Tobacco use type: Cigarette e-Cigarette/Vaping Use: Never Used Second Hand Smoke Exposure: Yes Substance Use Type: Marijuana service: No Current occupational status: student Cognitive needs: No Hearing needs: No Vision needs: Yes (Glasses) Female Reproductive History Menstrual Age of Menarche: 12 Review of Systems Const All systems reviewed & are unremarkable except as noted in HPI and below Physical Exam Vital Signs: Video visit: No acute distress No icterus noted No facial asymmetry Speaking in full sentences Telehealth Telehealth Telehealth Platform: [employer] Location of provider rendering services: practice address Location of patient: address on file Patient Identification confirmed using: Name, : Yes Telehealth method: video Patient verbally consented to treatment: Yes Patient verbally consented to billing insurance company: Yes Patient informed of any privacy concerns related to visit: Yes Minutes spent on Phone/Video with Pt.: 17 Results Reviewed Results Reviewed: 01/2024 UGIS A small type I hiatal hernia is present. No significant gastroesophageal reflux was seen during the course of the examination and on reflux views. Dual contrast and single contrast images of the stomach demonstrated a normal contour. The areae gastrica have a thickened appearance, suggestive of gastritis. No masses or ulcerations are seen. Contrast freely passed into the gastric antrum and duodenal bulb without delay. Assessment & Plan Assessment & Plan (1) RUQ abdominal pain: Code(s): R10.11 - Right upper quadrant pain Category: Medical (2) IBS (irritable bowel syndrome): Comment: Symptoms-worsened since she is back to campus Many questions in regard to diet literature given Code(s): K58.9 - Irritable bowel syndrome, unspecified Category: Medical (3) Constipation: Comment: Continue bowel regimen colace maintain HFD Avoid straining, [employer] Code(s): K59.00 - Constipation, unspecified Category: Medical Qualifiers: Constipation type: unspecified constipation type Qualified Code(s): K59.00 - Constipation, unspecified (4) Abdominal pain: Code(s): R10.9 - Unspecified abdominal pain Category: Medical (5) Bloating: Code(s): R14.0 - Abdominal distension (gaseous) Category: Medical (6) GERD (gastroesophageal reflux disease): Code(s): K21.9 - Gastro-esophageal reflux disease without esophagitis Category: Medical Qualifiers: Esophagitis presence: without esophagitis Qualified Code(s): K21.9 - Gastro-esophageal reflux disease without esophagitis Plan 1. GERD Reviewed with the pt that based on UGIS does not appear to have a significant relfux however has a small HH which could be predisposing. PRN omeprazole may not be too effective so if only reaching for it 2-3 times a week, [id number] may be better. In addition, dietary triggers also reviewed. 2. IBS-C Reviewed to take fibver in moderation. Increase hydration. OK to add senna or miralax if no BM for 3 days. low FODMAP diet reviewed to decrease bloating sx. Can also start with just glut en and dairy avoidance. 3. Rectal discomfort Difficult to ascertain etiology on a video visit. Ddx include hemorrhoids, anal fissure, SURS, proctitis, proctalgia fugax. Given underlying constipation and frequent straining, prolpased hemorrhoids seems most likely. Plan: - Fiber as above - Avoid constipation and straining - elevate legs while having a BM - Avoid aggressive wiping, use water and dab dry instead - Follow up in person for dedicated rectal exam if sx persist despite above Follow up 2-3 months Medications: Changed From famotidine Take DAILY at bedtime for 1 month, then NEEDED afterwards 20 mg PO BEDTIME 30 days 30 tabs 3RF To famotidine Take DAILY at bedtime for 1 month, then NEEDED afterwards 20 mg PO BEDTIME 90 tabs 1RF 90 days Discontinued omeprazole Discontinued Reason: Doctor's Order 20 mg PO DAILY 90 caps 1RF Coding Level of Care Code Est Pt Level 4 (93861) Diagnoses RUQ abdominal pain R10.11 IBS (irritable bowel syndrome) K58.9 Constipation, unspecified constipation type K59.00 Constipation type: unspecified constipation type Abdominal pain R10.9 Bloating R14.0 Gastroesophageal reflux disease without esophagitis K21.9 Esophagitis presence: without esophagitis
== END 2024-07-14 14:10 | disposition home or self-care (01) ==
LOC: HO.HGI 13:27
PROVIDERS: Visit Provider Internal Medicine
DX: R10.11 Right upper quadrant pain (principal); K58.9 Irritable bowel syndrome, unspecified; K59.00 Constipation, unspecified; R10.9 Unspecified abdominal pain; R14.0 Abdominal distension (gaseous); K21.9 Gastro-esophageal reflux disease without esophagitis
CPT/HCPCS: 99214

== ENCOUNTER → 2024-07-14 13:27 | Outpatient (BNVA) | payer OTHER, SELFPAY | PROVIDERS: Visit Provider Internal Medicine | DX: K21.9 Gastro-esophageal reflux disease without esophagitis (principal); K58.1 Irritable bowel syndrome with constipation; R10.11 Right upper quadrant pain; R14.0 Abdominal distension (gaseous) | CPT/HCPCS: 99212 ==

== ENCOUNTER 2024-07-15 13:58 | Outpatient (AMB) | payer OTHER, SELFPAY ==
--- NOTE | 2024-07-15 14:01 | A.OFFVIS_ITS ---
VS Expanded 07/15/24 14:06 Height 5 ft 3 in Weight 140 lb 14.006 oz BMI 25.0 Intake Visit Reasons: Constipation Allergies peanut Allergy (Severe, Verified 07/14/24 13:28) Nausea and Vomiting Seasonal Allergies Allergy (Severe, Verified 07/14/24 13:28) Eye Swelling walnut Allergy (Severe, Verified 07/14/24 13:28) Difficulty Swallowing peach Allergy (Mild, Verified 07/14/24 13:28) Itching sesame seed Allergy (Mild, Verified 07/14/24 13:28) Unknown grass pollen-perennial rye, standar Allergy (Unknown, Verified 07/14/24 13:28) Cough topiramate Adverse Reaction (Mild, Verified 07/14/24 13:28) dizzy Nutrition Presentation Details: Pt presents for MNT for Constipation, GERD, fatty liver Pt reports having cut out a lot of foods in the diet and is looking to work on balancing meals Typical meal intake 7 B: oatmeal with milk and honey, stevia, water or coffee (creamer flavor or c aramel creamer) or matcha/ 4p : rice/sweet potatoes, 8 : rice/brussel sprout , water food frequency fish : 1 /month salvador 1% milk etoh: occ 1 / smoking: -- BS Monitoring Most Recent Diabetes Results: No Data to Display LHJ-Byuvqzk-Ft.Jeor Equation Height: 5 ft 3 in Weight: 141 lb Resting Metabolic Rate: 1369.81 Calculated Activity Level: Mild Activity Calories Needed to Maintain Weight: 1883.49 Diagnosis Nutrition problem #1: food nutri know defi As related to (etiology) #1: lack of nutrit education As evidenced by (sign/symptom) #1: constipation (fatty liver ) PFSH Medical History Hepatic steatosis Vitamin D deficiency Overweight (BMI 25.0-29.9) Attention deficit hyperactivity disorder (ADHD) Allergic rhinitis Environmental allergies Schizophrenia Elevated LFTs Migraines Surgical History Hx of wisdom tooth extraction History of appendectomy Family History Mother No problems noted. Father No problems noted. Social History Housing: House Alcohol intake: never Patient Tobacco Use Status: Never used Tobacco Tobacco use type: Cigarette e-Cigarette/Vaping Use: Never Used Second Hand Smoke Exposure: Yes Substance Use Type: Marijuana service: No Current occupational status: student Cognitive needs: No Hearing needs: No Vision needs: Yes (Glasses) Female Reproductive History Menstrual Age of Menarche: 12 Assessment & Plan Assessment & Plan (1) Hepatic steatosis: Code(s): K76.0 - Fatty (change of) liver, not elsewhere classified Category: Medical Plan: Wt: 64 Kg ( 07/30 ) Est kcal needs as per MSJ: 1900 (40% carb, 30% protein/fat) Est fluid needs as per 25-30 ml/d: 1900 Est prot per day as per 1 g/kg bw: 64 Recommend fiber intake : 8-10 g per day and gradually increase to 25-28 g per day for women and 35-38 g for men or as tolerated Recommend sodium intake per day : less than 2000 mg Educated patient on: ( R = reviewed V = verbalizes understanding N/R = needs review N/A = not applicable * Food sources of carbohydrate, adequate serving sizes and its role in various health conditions: R V N/R * Differences between complex carbohydrates a simple carbohydrates, role of fiber in diet: R * Lean protein sources of foods: R * Differences between types of fats and role in diet (mono on saturated fat fatty acids, saturated fatty acids, trans fats): R * Food sources of sodium in salt and healthy modifications for heart health in kidney health: R V R/V * Vitamins and minerals: R V N/R * Healthy plate method concept: R * Physical activity: Benefits a precaution: R * Patient Instructions: Work on meal routine following healthy plate method choose whole grain foods , fiber rich foods and increase water as you increase fiber Include at least 2 fruits a day in place of pastry/chips Coding Level of Care Code Nutr Indiv Intake (28200) Diagnoses Hepatic steatosis K76.0 Time Spent (min) 30
[2024-07-15 14:06] VITALS: BMI 25.0
[2024-07-30 23:03] VITALS: BMI 25.0
== END 2024-07-15 14:59 | disposition home or self-care (01) ==
LOC: HO.ENCR 13:59
PROVIDERS: PCP Internal Medicine; Visit Provider Dietitian, Registered
DX: K76.0 Fatty (change of) liver, not elsewhere classified (principal)

== ENCOUNTER → 2024-07-15 13:58 | Outpatient (BNVA) | payer OTHER, SELFPAY | PROVIDERS: PCP Internal Medicine; Visit Provider Dietitian, Registered | DX: K76.0 Fatty (change of) liver, not elsewhere classified (principal) | CPT/HCPCS: 97802 ==

== ENCOUNTER 2024-09-09 13:31 | Emergency (ER) | payer OTHER, SELFPAY ==
--- NOTE | ~2024-09-09 | CT_ITS ---
EXAMINATION: CT HEAD WITHOUT IV CONTRAST HISTORY: head injury. confusion, BOSS, VH. TECHNIQUE: Unenhanced helical CT of the head was performed per standard departmental protocol. Coronal and sagittal reformats of the head were also evaluated. One or more of the following techniques was used for dose reduction: Automated exposure control, adjustment of the mA and/or kV according to patient size, use of iterative reconstruction technique. DLP: 586 mGy-cm COMPARISON: Comparison is made with the prior examination dated 01/19/2021. FINDINGS: BRAIN: The brain parenchyma is unremarkable. There is normal patricia/white differentiation. The ventricular system is normal in size and configuration. There is no mass effect or midline shift. No intra- or extra-axial fluid collections are identified. SINUSES: The visualized paranasal sinuses are clear. The mastoid air cells and middle ear cavities are well pneumatized. ORBITS: The visualized orbits are unremarkable. BONES/SOFT TISSUES: The extracranial soft tissues are unremarkable. The calvarium is intact. No suspicious lytic or sclerotic lesions. CT/CT head/brain wo IV con IMPRESSION: No acute intracranial abnormality. Electronically signed by: Gus Celeste MD 09/09/2024 03:44 PM EDT
--- NOTE | 2024-09-09 13:34 | ED.HEATRA ---
HPI - Head Injury General Chief complaint: Headache Stated complaint: Head injury Time Seen by Provider: 09/09/24 17:48 Source: patient Mode of arrival: ambulatory Limitations: no limitations History of Present Illness ED Provider: Dr. Christophe Nunez HPI Narrative: 24-year-old female with a history of migraines, ADHD, schizophrenia, PTSD, autism who presents emergency department for evaluation of to head injuries and not feeling well. The patient is here in the emergency department with her mother and with her boyfriend's mother as well. Patient states that on Friday, she was cleaning the lower cupboards in her bathroom and the mirror was open above her head. She states she stood up and struck the top of her head on the bottom of the mirror. She states she had immediate pain in the top of her head and blurred vision. She felt very shaky and had a headache. She denied loss of consciousness. The patient states that the next day she was looking for something in her closet. She states that the closet wall slopes upward and she stood up and accidentally struck the right side of her head on the wall. Again she had no loss of consciousness but she states that the 2nd head injury meet all of her other symptoms worse. Patient is complaining of a headache and she points the top of her head when asked to localize the pain. She she has been confused, forgetful, having visual hallucinations, has felt very fatigued and according to her mother has not been sleeping well. The patient states she has a therapist and a prescribing provider. The patient elected to stop her psychiatric medicines 1 month prior since she thought that these medications were not helping her. The patient's mother states that the patient has been on medications since she was 8 years old. The mother is convinced that the patient's symptoms are related to being off her medications and not related to the head injuries. The patient denied being suicidal or homicidal. Related Data Home Medications ?Medication ?Instructions ?Recorded ?Confirmed diazepam 2 mg tablet 2 mg PO ONCE PRN 04/17/20 06/08/24 cetirizine 10 mg tablet 10 mg PO DAILY 12/15/20 06/08/24 fluticasone propionate 50 0 mcg intranasal 12/15/20 06/08/24 mcg/actuation nasal spray,suspension olanzapine 7.5 mg tablet 7.5 mg PO BEDTIME 07/27/21 06/08/24 Previous Rx's ?Medication ?Instructions ?Recorded famotidine 20 mg tablet 20 mg PO BEDTIME 90 days #90 tabs 07/14/24 ferrous sulfate 325 mg (65 mg 325 mg PO DAILY #90 tabs 08/13/24 iron) tablet Allergies Allergy/AdvReac Type Severity Reaction Status Date / Time peanut Allergy Severe Nausea and Verified 09/09/24 13:37 Vomiting Seasonal Allergies Allergy Severe Eye Verified 09/09/24 13:37 Swelling walnut Allergy Severe Difficulty Verified 09/09/24 13:37 Swallowing peach Allergy Mild Itching Verified 09/09/24 13:37 sesame seed Allergy Mild Unknown Verified 09/09/24 13:37 grass pollen-perennial rye, Allergy Unknown Cough Verified 09/09/24 13:37 standar topiramate AdvReac Mild dizzy Verified 09/09/24 13:37 Review of Systems Review of Systems: Yes all other systems are reviewed and are negative PMFSH Past Medical History Medical History Hepatic steatosis Vitamin D deficiency Overweight (BMI 25.0-29.9) Attention deficit hyperactivity disorder (ADHD) Allergic rhinitis Environmental allergies Schizophrenia Elevated LFTs Migraines Surgical History Hx of wisdom tooth extraction History of appendectomy Family History Family History Mother No problems noted. Father No problems noted. Social History Social History Housing: House Alcohol intake: never Patient Tobacco Use Status: Never used Tobacco Tobacco use type: Cigarette Smoked in Last 30 Days: Yes e-Cigarette/Vaping Use: Never Used Second Hand Smoke Exposure: Yes Use of substances other than those prescribed or required for medical reasons: Yes Substance Use Type: Marijuana Substance Use Frequency: Occasionally Advance Directives: No Advance Directives Information Provided: No Do you have a plan to hurt others: No Plan service: No Current occupational status: student Cognitive needs: No Hearing needs: No Vision needs: Yes (Glasses) Physical Exam Vital Signs: Vital Signs: Last Vital Signs Temp 98 F 09/09/24 13:35 Pulse 82 09/09/24 16:26 Resp 16 09/09/24 16:26 BP 121/74 09/09/24 16:26 Pulse Ox 99 09/09/24 16:26 O2 Del Method Room Air 09/09/24 16:26 BMI result Body Mass Index 24.8 Vital signs were normal Exam: General: Awake, alert in no distress Head: Normocephalic, tenderness with palpation over the mid parietal aspect of her head with no obvious hematoma noted EENT: PERRL, Lids normal, sclera normal, conjunctiva normal, nose normal , ears normal, throat without erythema or exudates Neck: Supple, no adenopathy Lung: breath sounds symmetric, no wheezing, rales or rhonchi Chest: symmetric movement, nontender Heart: regular rate and rhythm, normal S1, S2 no murmurs or rubs Abdomen: soft, non-tender, nondistended, normal bowel sounds Back: no vertebral tenderness, no CVAT Extremities: no deformities, moves all extremities symmetrically Neuro: Awake, alert, oriented, normal speech, cranial nerves intact, moves all extremities symmetrically, cerebellar exam was normal with good hrfurm-se-jovh-to-finger and good heel to baltazar, good rapid finger movement Psych: Pleasant, cooperative Course Course Course Narrative: This is a Rapid Medical Exam performed in triage by Celeste Last PA-C. Full HPI, ROS and PE to be performed by primary ED provider. 24 yo F w/pmhx schizophrenia, migraines, ADHD presenting to the ED c/o BOSS, confusion (thought it was her bday on Friday & her bday was last month), & forgetfulness, & VH (thought ants were crawling on her hands) x 1 week s/p hitting head twice. Admits stood up into corner of mirror. denies LOC or AC use. PE: hyper-verbal / rambling, no focal deficits, ambulating w/steady gait Plan: Head CT, labs, Care team consult, [place] Medical Decision Making Medical Decision Making [facility] Narrative: 24-year-old female with a history of migraines, ADHD, schizophrenia, PTSD, autism who presents emergency department for evaluation of to head injuries and not feeling well. patient had 2 minor head injuries 6 days prior to evaluation. Since the head injury she has been having headaches but he has also had confusion, visual hallucinations, forgetfulness, fatigue and insomnia. Vital signs were normal. Physical examination did reveal tenderness palpation of the mid parietal aspect of her scalp with no hematoma otherwise exam was nonfocal. Differential diagnosis: Includes but is not limited to closed head injury, skull fracture, intracranial bleed, concussion, decompensation of schizophrenia since being off medications, anemia, electrolyte abnormalities Course: 19:00 My independent interpretation patient's laboratory evaluation as follows: CBC was normal. CMP was normal. Quantitative beta-hCG was below detectable limits. Urine tox screen was positive for marijuana otherwise unremarkable. CT scan of the patient's brain revealed no acute findings which is reassuring. At this time, I do not think that her symptoms are related to her minor head injury in his and that her symptoms are probably more consistent with decompensation of her schizophrenia secondary to being off her psychiatric medications. I did discuss this with the patient, the patient's mother and the patient's boyfriend's mother as well. The patient is not suicidal or homicidal. The patient was seen by our care team and their recommendation is that the patient can be discharged home. The patient does have a follow-up with her therapist next week. The care team will also check in on her over the next several days. I did strongly encourage the patient to consider restarting her psychiatric medications. Admission/Observation Consideration of admission/observation: Escalation of care including admission/observation considered ( Yes) Lab Data MDM Lab Attestation statement: I reviewed the patient's lab results. 09/09/24 13:48 09/09/24 13:48 Labs: Lab Results 09/09/24 Range/Units 13:48 WBC 5.1 (4.8-10.8) X10*3/uL RBC 4.66 (4.20-5.50) X10*6/uL Hgb 14.2 D (12.0-16.0) g/dl Hct 41.2 (37.0-47.0) % MCV 88.4 (80.0-98.0) fL MCH 30.5 (27.0-33.0) pg MCHC 34.5 (31.0-35.0) g/dl RDW 11.6 (11.0-16.0) % Plt Count 334 (160-400) X10*3/uL MPV 9.8 (9.4-12.3) fL Immature Gran % (Auto) 0.2 (0.0-0.4) % Neut % (Auto) 39.8 L (45-73) % Lymph % (Auto) 49.2 H (20-40) % [place] % (Auto) 7.6 (2-11) % Eos % (Auto) 1.2 (0-4) % Baso % (Auto) 2.0 (0-2) % Lymph # (Auto) 2.5 (1.2-4.9) X10*3/uL [place] # (Auto) 0.4 (0.1-1.2) X10*3/uL Eos # (Auto) 0.1 (0.0-0.4) X10*3/uL Baso # (Auto) 0.1 (0.0-0.2) X10*3/uL Abs Immat Gran (auto) 0.01 (0.00-0.03) X10*3/uL Absolute Neuts (auto) 2.0 (2.0-8.3) x10*3/uL Absolute Nucleated RBC 0.000 (0.0-0.012) X10*3/uL Nucleated RBC % (auto) 0.0 (0.0-0.2) /100WBC Sodium 143 (135-145) mmol/L Potassium 4.7 (3.3-5.1) mmol/L Chloride 107 (96-108) mmol/L Carbon Dioxide 29 (22-29) mmol/L Anion Gap 12 (12-20) BUN 9 (9-16) mg/dL Creatinine 0.84 (0.5-1.4) mg/dL Estim Creat Clear Calc 93.4 Estimated GFR > 60 Random Glucose 99 (60-115) mg/dL Calcium 10.1 D (8.4-10.2) mg/dL Magnesium 2.0 (1.6-2.6) mg/dL Total Bilirubin 0.4 (0.0-1.0) mg/dL Direct Bilirubin 0.2 (0.0-0.5) mg/dL AST 21 (5-31) U/L ALT 27 (0-31) U/L Alkaline Phosphatase 64 (39-117) U/L Total Protein 7.7 (6.5-8.0) g/dL Albumin 5.1 H (3.5-5.0) g/dL Beta HCG, Quant < 2 mIU/mL Urine Opiates Screen Not Detected (Not Detect) Ur Buprenorphine Scrn Not Detected (Not Detect) ng/mL Ur Oxycodone Screen Not Detected (Not Detect) ng/mL Urine Methadone Screen Not Detected (Not Detect) ng/mL Urine Fentanyl Screen Not Detected (Not Detect) Ur Barbiturates Screen Not Detected (Not Detect) Ur Phencyclidine Scrn Not Detected (Not Detect) Ur Amphetamines Screen Not Detected (Not Detect) U Benzodiazepines Scrn Not Detected (Not Detect) Urine Cocaine Screen Not Detected (Not Detect) U Marijuana (THC) Screen POSITIVE H (Not Detect) Radiology Impression Discussion of test interpretation with radiology: I have reviewed the radiologist's reading. Radiologist Impression: CT head/brain wo IV con IMPRESSION: No acute intracranial abnormality. Electronically signed by: Gus Celeste MD 09/09/2024 03:44 PM Independent Historian Clinical information obtained from an independent historian. History obtained from or confirmed by: Parent ( patient's mother and patient's boyfriend's mother) Chronic Conditions Patient?s care impacted by: Other ( schizophrenia) Discharge Plan Discharge Clinical Impression: Closed head injury, Headache, Fatigue Patient Disposition: Home, Self-Care Additional Instructions: You had a complete blood count and comprehensive metabolic panel. These studies were normal. Your test was negative. You had a CT scan of your head and brain. There was no skull fracture, bleeding in your brain or other abnormalities noted by the radiologist. This is very reassuring. At this time, I believe that your head injuries , as you describe them, are minor and not the cause of your symptoms. I am concerned that you stop your psychiatric medications one month ago and that is some of your symptoms are related to you being off your medications. I want you to follow-up with your therapist as scheduled next week to discuss restarting your psychiatric medications and I think if you restart these medications you will feel better. You were seen by our Care team counselor and they are going to follow up with you next week just to make sure that you were doing well. Please follow their instructions.. Please return to the emergency department if your symptoms get worse or if you develop any symptoms that are concerning to you. Please see the return to work note If you have trouble finding a therapist you can reach out to [address] [phone] The National Suicide and Crisis Lifeline can be reached 7 days a week 24 hours a day.? Call 988 to speak with someone.? Return for any worsening symptoms or concerns such as thoughts of self harm or harm to others. Please call 911 if you feel your mental health is worsening.? Prescriptions: No Action ferrous sulfate 325 mg (65 mg iron) tablet 325 mg PO DAILY Qty: 90 1RF cetirizine 10 mg tablet 10 mg PO DAILY fluticasone propionate 50 mcg/actuation spray,suspension 0 mcg intranasal diazepam 2 mg tablet 2 mg PO ONCE PRN olanzapine 7.5 mg tablet 7.5 mg PO BEDTIME famotidine 20 mg tablet 20 mg PO BEDTIME 90 Days Qty: 90 1RF Rx Instructions: Take DAILY at bedtime for 1 month, then NEEDED afterwards Stand Alone Forms: Work/School Release Print Language: Yakut
[2024-09-09 13:35] VITALS: BP 135/84; PULSE 77; RESP 18; TEMP 36.6; O2SAT 98; BMI 24.8
[2024-09-09 13:52] LABS: MANUAL DIFF FLAG NO
[2024-09-09 13:54] LABS: Basophils Absolute Auto 0.1 X10*3/uL (0.0-0.2); Eosinophils Absolute Auto 0.1 X10*3/uL (0.0-0.4); Eosinophils Percent Auto 1.2 % (0-4); Hematocrit 41.2 % (37.0-47.0); Hemoglobin 14.2 g/dl (12.0-16.0); Imm Gran Abs Auto 0.01 X10*3/uL (0.00-0.03); Imm Gran Pct Auto 0.2 % (0.0-0.4); Lymphocytes Absolute Auto 2.5 X10*3/uL (1.2-4.9); Lymphocytes Percent Auto 49.2 % (20-40); Mean Corpuscular HGB Conc 34.5 g/dl (31.0-35.0); Mean Corpuscular Hemoglobin 30.5 pg (27.0-33.0); Mean Corpuscular Volume 88.4 fL (80.0-98.0); Mean Platelet Volume 9.8 fL (9.4-12.3); Monocytes Absolute Auto 0.4 X10*3/uL (0.1-1.2); Monocytes Percent Auto 7.6 % (2-11); Neutrophils Percent Auto 39.8 % (45-73); Platelet Count 334 X10*3/uL (160-400); Red Blood Count 4.66 X10*6/uL (4.20-5.50); Red Cell Distribution Width 11.6 % (11.0-16.0); White Blood Count 5.1 X10*3/uL (4.8-10.8)
[2024-09-09 14:06] LABS: Amphetamine Screen Urine Not Detected (Not Detect); Barbiturates, Urine Not Detected (Not Detect); Benzodiazepines Screen Urine Not Detected (Not Detect); Buprenorphine Scr Not Detected (Not Detect); Cannabinoid Screen Urine POSITIVE (Not Detect); Cocaine Screen Urine Not Detected (Not Detect); Fentanyl, urine Not Detected (Not Detect); Methadone Screen, Urine Not Detected (Not Detect); Opiate Screen Urine Not Detected (Not Detect); Oxycodone Screen Urine Not Detected (Not Detect); Phencyclidine Screen Urine Not Detected (Not Detect)
[2024-09-09 14:16] LABS: Alanine Aminotransferase 27 U/L (0-31); Albumin Level 5.1 g/dL (3.5-5.0); Alkaline Phosphatase 64 U/L (39-117); Anion Gap 12 (12-20); Aspartate Amino Transferase 21 U/L (5-31); Bilirubin Direct 0.2 mg/dL (0.0-0.5); Bilirubin Total 0.4 mg/dL (0.0-1.0); Blood Urea Nitrogen 9 mg/dL (9-16); Calcium 10.1 mg/dL (8.4-10.2); Carbon Dioxide 29 mmol/L (22-29); Chloride 107 mmol/L (96-108); Creatinine Clr Calc Pharmacy 93.4; Estimated Glomerular Filt Rate > 60; Glucose Random 99 mg/dL (60-115); Potassium 4.7 mmol/L (3.3-5.1); Sodium 143 mmol/L (135-145); Total Protein 7.7 g/dL (6.5-8.0)
[2024-09-09 14:20] LABS: HCG Quantitative < 2 mIU/mL
[2024-09-09 16:26] VITALS: BP 121/74; PULSE 82; RESP 16; O2SAT 99
--- NOTE | 2024-09-09 16:36 | PC.NURSE ---
Patient presenting from triage w/ concerns of a continuing headache x 1 week after hitting her head on a mirror. Patient has 2 visitors with her. Per triage patient has also stopped taking her medications. Crisis team went to assess patient, no ed provider has picked up patient yet. Patiet denies SI/HI, awaiting orders.
[2024-09-09 18:59] VITALS: BP 112/63; PULSE 73; RESP 16; TEMP 36.7; O2SAT 98
== END 2024-09-09 18:59 | disposition home or self-care (01) ==
PROVIDERS: Physician Assistant; Emergency Provider Emergency Medicine Emergency Medical Services
DX: R51.9 Headache, unspecified (principal); S09.90XA Unspecified injury of head, initial encounter; R53.83 Other fatigue; H53.8 Other visual disturbances; R10.2 Pelvic and perineal pain; R44.1 Visual hallucinations; G47.00 Insomnia, unspecified; X58.XXXA Exposure to other specified factors, initial encounter; W19.XXXA Unspecified fall, initial encounter; Y93.9 Activity, unspecified; Y92.9 Unspecified place or not applicable; Y99.8 Other external cause status; Z91.81 History of falling; Z51.81 Encounter for therapeutic drug level monitoring
CPT/HCPCS: 36415; 70450; 80048; 80076; 80307; 83735; 84702; 85025; 99284; S9485

== ENCOUNTER → 2024-09-09 13:37 | Outpatient (BNV) | payer OTHER, SELFPAY | PROVIDERS: Visit Provider Radiology Diagnostic Radiology | DX: R51.9 Headache, unspecified (principal); R41.0 Disorientation, unspecified; S09.90XA Unspecified injury of head, initial encounter | CPT/HCPCS: 70450 ==

== ENCOUNTER 2024-09-20 15:56 | Outpatient (AMB) | payer OTHER, SELFPAY ==
--- NOTE | 2024-09-20 16:05 | MHC.PC.OV ---
Vital Signs 09/20/24 16:06 Height 5 ft 3 in Weight 138 lb 2 oz BMI 24.5 BP 120/60 Blood Pressure Location Lt brachial Position Sitting Pulse 67 Pulse Source Pulse Oximeter Temp 97.3 F Temp Source Temporal Artery Scan Pulse Oximetry (%) 98 Oxygen Delivery Method Room Air Intake Visit Reasons: annual exam Intake Note: Patient is here today for a physical. [employer] Planner Required: No Carton Inspector: Not Required per policy Accompanied by: Self / Same As Patient Allergies peanut Allergy (Severe, Verified 09/20/24 16:29) Nausea and Vomiting Seasonal Allergies Allergy (Severe, Verified 09/20/24 16:29) Eye Swelling walnut Allergy (Severe, Verified 09/20/24 16:29) Difficulty Swallowing peach Allergy (Mild, Verified 09/20/24 16:29) Itching sesame seed Allergy (Mild, Verified 09/20/24 16:29) Unknown grass pollen-perennial rye, standar Allergy (Unknown, Verified 09/20/24 16:29) Cough topiramate Adverse Reaction (Mild, Verified 09/20/24 16:29) dizzy Medication List - Last Reconciled 09/20/24 by Merle Burgess PA-C cetirizine 10 mg PO DAILY famotidine 20 mg PO BEDTIME 90 days ferrous sulfate 325 mg PO DAILY fluticasone propionate 50 mcg/actuation 0 mcg intranasal olanzapine 7.5 mg PO BEDTIME Tobacco use date assessed: 09/20/24 Dental Screening Dental Screen Date: 05/14/24 HPI annual exam HPI Details 24-year-old female with past medical history of migraine, schizophrenia, ADHD, GERD, constipation, IBS, hepatic steatosis last seen 06/2024 coming in for annual exam.?In review of the notes, patient was seen in [facility] 09/11/2024 after head injury workup was negative patient was advised to restart her psychiatric medications and discharged home.?She was seen by [facility] 07/2024 for epigastric pain advised H2 urszula for GERD, continue on low FODMAP diet and increase fiber. Presenting with schizophrenia and reports experiencing psychosis when not adherent to medication. She describes episodes of hallucinations, including auditory and tactile experiences, and paranoia. The patient reports a recent traumatic event in [place], which may have exacerbated her symptoms. She is currently under the care of a psychiatrist and is on olanzapine, although not at full dosage. The patient has a history of constipation, which persists despite dietary changes and fiber supplementation. She has recently moved to a new house, which disrupted her medication routine temporarily. She sees a counselor and psychiatrist through [facility] [facility] Medical History (Updated 09/21/24 @ 07:48 by Merle Burgess PA-C) Hepatic steatosis Vitamin D deficiency Overweight (BMI 25.0-29.9) Attention deficit hyperactivity disorder (ADHD) Allergic rhinitis Environmental allergies Schizophrenia Elevated LFTs Migraines Surgical History Hx of wisdom tooth extraction History of appendectomy Family History Mother No problems noted. Father No problems noted. Social History Housing: House Alcohol intake: never Patient Tobacco Use Status: Never used Tobacco Tobacco use type: Cigarette e-Cigarette/Vaping Use: Never Used Second Hand Smoke Exposure: Yes Substance Use Type: Marijuana service: No Current occupational status: student Cognitive needs: No Hearing needs: No Vision needs: Yes (Glasses) Female Reproductive History Menstrual Age of Menarche: 12 Questionnaire PHQ-9 Over the last 2 weeks, how often have you been bothered by any of the following problems? 1. Little interest or pleasure in doing things: several days 2. Feeling down, depressed, or hopeless: nearly every day 3. Trouble falling or staying asleep, or sleeping too much: nearly every day 4. Feeling tired or having little energy: nearly every day 5. Poor appetite or overeating: nearly every day 6. Feeling bad about yourself - or that you are a failure or have let yourself or your family down: nearly every day 7. Trouble concentrating on things, such as reading the newspaper or watching television: nearly every day 8. Moving or speaking so slowly that other people could have noticed. Or the opposite - being so fidgety or restless that you have been moving around a lot more than usual: more than half the days 9. Thoughts that you would be better off or of hurting yourself in some way: not at all Total score: 21 Depression Screening Interpretation: Positive Depression Screening Follow-up: Existing condition and In treatment Depression Screening Done: Yes Source: Developed by Drs. Gus Sandoval, Aurelia Rice, Balaji Mason and colleagues, with an educational shoaib from [employer]. Thrive Questionnaire Date Thrive assessed: 05/14/24 I am a: Patient What is your living situation today?: I have a steady place to live Within the past 12 months, did the food you bought not last and you didn't have the money to get more?: Never true Within the past 12 months, did you worry whether your food would run out before you got money to buy more?: Never true Do you have trouble paying for medicines?: I choose not to answer this question Do you have trouble getting transportation to medical appointments?: No Do you have trouble paying your heating and electricity bill?: No Do you have trouble taking care of your child, family member or friend?: No Do you have trouble with day-to-day activities such as bathing, preparing meals, shopping, managing finances, etc.?: I choose not to answer this question Are you currently unemployed and looking for a job?: No Are you interested in more education?: I choose not to answer this question Please select the resources that you would like help with: None Currently or been in a relationship where the following occur: I choose not to answer THRIVE Score: 0 AUDIT C Alcohol Use Questionnaire (AUDIT-C) 1. How often do you have a drink containing alcohol?: Monthly or less 2. How many drinks containing alcohol do you have on a typical day when you are drinking?: 5 or 6 3. How often do you have six or more drinks on one occasion?: Less than monthly Total Score: 4 Score Reviewed/Action Taken: Yes KANE-7 AMB Questionnaire KANE-7 Date KANE - 7 assessed: 09/20/24 Feeling nervous, anxious, or on edge: 3 = Nearly every day Not being able to stop or control worryin = Nearly every day Worrying too much about different things: 3 = Nearly every day Trouble relaxin = Nearly every day Being so restless that it is hard to sit still: 2 = More than half the days Becoming easily annoyed or irritable: 3 = Nearly every day Feeling afraid as if something awful might happen: 2 = More than half the days Total KANE-7 score (0-4 normal; 5-9 mild; 10-14 moderate; 15-21 severe): 19 Source: Developed by Drs. Gus Sandoval, Aurelia Rice, Balaji Mason and colleagues, with an educational shoaib from [employer]. Review of Systems Const Denies body aches, Denies chills, Denies fever(s), Denies headache(s) and Denies poor appetite Eyes Reports no additional complaints ENT Denies dysphagia, Denies dizziness, Denies headache(s) and Denies odynophagia Card Denies chest pain, Denies syncope, Denies edema, Denies irregular heart rhythm, Denies lightheadedness and Denies dyspnea Resp Denies cough and Denies dyspnea GI Denies abdominal pain, Denies constipation, Denies dysphagia, Denies diarrhea, Denies nausea, Denies odynophagia and Denies vomiting Reports no additional complaints Musc Reports no additional complaints and Denies abnormal gait Skin/Breast Reports system reviewed and no additional complaints, except as documented Neuro Denies abnormal gait, Denies dizziness, Denies syncope and Denies headache(s) Psych Reports no additional complaints Physical exam (Primary Care) Vital Signs: Last Vital Signs Temp 97.3 F 09/20/24 16:06 Pulse 67 09/20/24 16:06 BP 120/60 09/20/24 16:06 Pulse Ox 98 09/20/24 16:06 Oxygen Delivery Method Room Air 09/20/24 16:06 BMI result Body Mass Index 24.5 Tobacco/Smoking Status: Tobacco use Status Tobacco use date assessed 09/20/24 09/20/24 16:11 Patient Tobacco Use Status Never used Tobacco 09/20/24 16:11 Tobacco use type Cigarette 09/20/24 16:11 e-Cigarette/Vaping Use Never Used 09/20/24 16:11 PHQ-9: PHQ-9 Score PHQ-9: Total score 21 09/20/24 16:30 Depression Screening Interpretation: Positive Depression Screening Follow-up: Existing condition and In treatment Thrive Assessment: Date of Thrive Assessment Date Thrive assessed 05/14/24 09/20/24 16:11 Currently or been in a relationship where the following occur: I choose not to answer Const General: cooperative, healthy appearing, comfortable and no acute distress Orientation/consciousness: patient oriented x3 [facility] Head: Yes normocephalic Ears: hearing grossly normal bilaterally General nose exam: Normal external nose present Face and sinus: Yes normal facial exam and Yes sinuses nontender Mouth: Normal oral and palatal mucosa present and tongue normal Throat: Yes posterior oropharynx normal Eyes General: appearance normal, both eyes and all related structures Conjunctivae: conjunctivae normal Pupils: Equal, round and reactive pupils present EOM: EOMs intact bilaterally and No Nystagmus present Neck Neck: Yes full ROM and Yes no lymphadenopathy Chest Chest palpation & inspection: normal inspection of the chest Resp Effort & Inspection: normal respiratory effort Auscultation: clear to auscultation bilaterally, no crackles, no rales, no rhonchi and no wheezes Cardio Rate: regular rate Rhythm: regular rhythm Peripheral pulses: radial pulses present and dorsalis pedis present GI Inspection: Yes normal to inspection and No Abdominal wall edema Palpation (GI): Soft to palpation, not firm and nontender Auscultation: normal bowel sounds Rectal Exam - Female: deferred General: Yes no CVA tenderness Back/Spine/Pelvis Back: no CVA tenderness Skin General skin exam: no rashes or lesions noted Neuro General: patient oriented x3 Cranial nerves: Yes Equal, round and reactive pupils present, Yes Midline tongue present, Yes Ability to bilaterally elevate shoulders present and No Nystagmus present Gait exam (Neuro): Normal gait present Extrem General: Yes normal to inspection, Yes full ROM and No edema Psych Speech and movement: Normal speech and movement present Affect: normal affect Attitude: cooperative Insight: Good insight present (Psych) Judgement: Good judgement present (Psych) Coding Level of Care Code Est Pt Prev Care 18-39y(35210) Diagnoses Annual physical exam Z00.00 Schizophrenia, unspecified type F20.9 Schizophrenia type: unspecified Generalized joint pain M25.50 Elevated blood pressure reading R03.0 Hepatic steatosis K76.0 Hiatal hernia K44.9 IBS (irritable bowel syndrome) K58.9 Gastroesophageal reflux disease without esophagitis K21.9 Esophagitis presence: without esophagitis Assessment & Plan Assessment & Plan (1) Annual physical exam: Code(s): Z00.00 - Encounter for general adult medical examination without abnormal findings Category: Medical Plan: Patient is up-to-date on all recommended routine screenings and vaccinations for her age. Blood work is up-to-date and has been reviewed with the patient today. Healthy diet and regular exercise is encouraged. (2) Schizophrenia: Code(s): F20.9 - Schizophrenia, unspecified Category: Medical Qualifiers: Schizophrenia type: unspecified Qualified Code(s): F20.9 - Schizophrenia, unspecified Plan: Patient has a history of schizophrenia and is following with [facility]. She tells us today she is losing her insurance this week and she will be without a psych provider. I plan to discuss this with the community health worker as it the time of this appointment the community health worker had left for the day. She is currently on olanzapine 7.5 mg half tablet and is increasing to a full tablet later this week. At this time continue to follow with [facility] until other Services can be established with [facility]. She denies any thoughts or feelings of self-harm at this time and feels safe. Patient does not appear to be having active visual or auditory hallucinations and does not pose an immediate danger to herself at this time. (3) Generalized joint pain: Code(s): M25.50 - Pain in unspecified joint Category: Medical Plan: Patient complaining of generalized joint pain plan ordered for blood work for further evaluation. (4) Elevated blood pressure reading: Code(s): R03.0 - Elevated blood-pressure reading, without diagnosis of hypertension Category: Medical Plan: Avoid salt intake and encourage healthy diet and regular exercise. (5) Hepatic steatosis: Code(s): K76.0 - Fatty (change of) liver, not elsewhere classified Category: Medical Plan: Healthy diet and regular exercise is encouraged. (6) Hiatal hernia: Comment: 01/2024 Small type 1 Code(s): K44.9 - Diaphragmatic hernia without obstruction or gangrene Category: Medical Plan: Avoid trigger foods such as citrus, tomato products, soda, caffeine, spicy foods and other foods that may be irritating to your stomach. Avoid laying flat 3-4 hours after eating and elevate the head of the bed 30 degrees to prevent acid from moving into the esophagus. Continue on famotidine as needed (7) IBS (irritable bowel syndrome): Comment: Symptoms-worsened since she is back to campus Many questions in regard to diet literature given Code(s): K58.9 - Irritable bowel syndrome, unspecified Category: Medical Plan: Patient has IBS-C recommend adding fiber supplement to diet and increasing water intake. Continue to follow with GI (8) GERD (gastroesophageal reflux disease): Code(s): K21.9 - Gastro-esophageal reflux disease without esophagitis Category: Medical Qualifiers: Esophagitis presence: without esophagitis Qualified Code(s): K21.9 - Gastro-esophageal reflux disease without esophagitis Plan: Avoid trigger foods such as citrus, tomato products, soda, caffeine, spicy foods and other foods that may be irritating to your stomach. Avoid laying flat 3-4 hours after eating and elevate the head of the bed 30 degrees to prevent acid from moving into the esophagus. Continue on famotidine as needed Plan The patient is advised to continue with olanzapine, with a plan to titrate to the full dosage as tolerated, under the guidance of her psychiatrist. For constipation, the patient is encouraged to increase water intake and continue using fiber supplements to manage symptoms. The patient is advised to maintain regular follow-ups with her psychiatrist and therapist to monitor her mental health status and adjust treatment as necessary. This note was constructed using voice recognition software. While every effort has been made to ensure accuracy and salad chef, still areas may have been included sometimes these areas may affect the content or meeting of the given symptoms. Total time spent caring for the patient today was 30 minutes. This includes time spent before the visit reviewing the chart, time spent during the visit, and time spent after the visit and documentation. Patient was informed and verbally consented to the use of an ambient scribe for clinic note documentation during this visit. Orders: Orders PAUL Reflex Titer and Pattern 09/20/24 M25.50 - Pain in unspecified joint Rheumatoid Factor 09/20/24 M25.50 - Pain in unspecified joint Erythrocyte Sedimentation Rate 09/20/24 M25.50 - Pain in unspecified joint C Reactive Protein 09/20/24 M25.50 - Pain in unspecified joint Medications: New psyllium husk (Daily Fiber) 0.4 grams PO BEDTIME 90 caps 0RF
[2024-09-20 16:06] VITALS: BP 120/60; PULSE 67; TEMP 36.3; O2SAT 98; BMI 24.5
== END 2024-09-20 17:04 | disposition home or self-care (01) ==
LOC: HO.HMCH 15:57
PROVIDERS: PCP Internal Medicine
DX: Z00.00 Encounter for general adult medical examination without abnormal findings (principal); F20.9 Schizophrenia, unspecified; M25.50 Pain in unspecified joint; R03.0 Elevated blood-pressure reading, without diagnosis of hypertension; K76.0 Fatty (change of) liver, not elsewhere classified; K44.9 Diaphragmatic hernia without obstruction or gangrene; K58.9 Irritable bowel syndrome, unspecified; K21.9 Gastro-esophageal reflux disease without esophagitis

== ENCOUNTER → 2024-09-20 15:56 | Outpatient (BNVA) | payer OTHER, SELFPAY | PROVIDERS: PCP Internal Medicine | DX: Z00.00 Encounter for general adult medical examination without abnormal findings (principal); G43.909 Migraine, unspecified, not intractable, without status migrainosus; F20.9 Schizophrenia, unspecified; F90.9 Attention-deficit hyperactivity disorder, unspecified type; K21.9 Gastro-esophageal reflux disease without esophagitis; K58.1 Irritable bowel syndrome with constipation; M25.50 Pain in unspecified joint; R03.0 Elevated blood-pressure reading, without diagnosis of hypertension; K76.0 Fatty (change of) liver, not elsewhere classified; K44.9 Diaphragmatic hernia without obstruction or gangrene | CPT/HCPCS: 99395 ==

== ENCOUNTER 2024-10-06 11:39 | Outpatient (AMB) | payer OTHER, SELFPAY ==
--- NOTE | 2024-10-06 11:40 | MHC.AMNUTRGE ---
VS Expanded 10/06/24 11:41 Height 5 ft 3 in Weight 137 lb 2.04 oz BMI 24.3 Intake Visit Reasons: Constipation Allergies peanut Allergy (Severe, Verified 10/13/24 16:04) Nausea and Vomiting Seasonal Allergies Allergy (Severe, Verified 10/13/24 16:04) Eye Swelling walnut Allergy (Severe, Verified 10/13/24 16:04) Difficulty Swallowing peach Allergy (Mild, Verified 10/13/24 16:04) Itching sesame seed Allergy (Mild, Verified 10/13/24 16:04) Unknown grass pollen-perennial rye, standar Allergy (Unknown, Verified 10/13/24 16:04) Cough topiramate Adverse Reaction (Mild, Verified 10/13/24 16:04) dizzy Nutrition Presentation Details: Pt presents for MNT for constipation/hepatic steatosis pt having oatmeal 1-2 x/wk includin yogurt 3 x/wk takes psyllium husk once a day as rx by PCP, Typical meal pancake/omelette cheese, water rice/pigean peas and chicken baked not fried chicken honey broccoli, rice paper noodles beverages: tea/water /milk lactose free /oatmilk fish: 0-1 PA : keeps activity at work and plays with cats , walking at work BS Monitoring Most Recent Diabetes Results: Creatinine, (0.5-1.4) 0.84 mg/dL 09/09/24 BUN, (9-16) 9 mg/dL 09/09/24 Sodium, (135-145) 143 mmol/L 09/09/24 Potassium, (3.3-5.1) 4.7 mmol/L 09/09/24 Chloride, (96-108) 107 mmol/L 09/09/24 Carbon Dioxide, (22-29) 29 mmol/L 09/09/24 Calcium, (8.4-10.2) 10.1 mg/dL Δ 09/09/24 AST, (5-31) 21 U/L 09/09/24 ALT, (0-31) 27 U/L 09/09/24 Total Protein, (6.5-8.0) 7.7 g/dL 09/09/24 Albumin, (3.5-5.0) 5.1 g/dL H 09/09/24 [facility] Medical History Hepatic steatosis Vitamin D deficiency Overweight (BMI 25.0-29.9) Attention deficit hyperactivity disorder (ADHD) Allergic rhinitis Environmental allergies Schizophrenia Elevated LFTs Migraines Surgical History Hx of wisdom tooth extraction History of appendectomy Family History Mother No problems noted. Father No problems noted. Social History Housing: House Alcohol intake: never Patient Tobacco Use Status: Never used Tobacco Tobacco use type: Cigarette e-Cigarette/Vaping Use: Never Used Second Hand Smoke Exposure: Yes Substance Use Type: Marijuana service: No Current occupational status: student Cognitive needs: No Hearing needs: No Vision needs: Yes (Glasses) Female Reproductive History Menstrual Age of Menarche: 12 Assessment & Plan Assessment & Plan (1) Hepatic steatosis: Code(s): K76.0 - Fatty (change of) liver, not elsewhere classified Category: Medical Plan: Wt: 64 Kg ( 07/30 ), 62 kg (10/29) Est kcal needs as per MSJ: 1900 (40% carb, 30% protein/fat) Est fluid needs as per 25-30 ml/d: 1900 Est prot per day as per 1 g/kg bw: 64 Recommend fiber intake : 8-10 g per day and gradually increase to 25-28 g per day for women and 35-38 g for men or as tolerated Recommend sodium intake per day : less than 2000 mg Educated patient on: ( R = reviewed V = verbalizes understanding N/R = needs review N/A = not applicable Food sources of carbohydrate, adequate serving sizes and its role in various health conditions: R V N/R Differences between complex carbohydrates a simple carbohydrates, role of fiber in diet: R Lean protein sources of foods: R Differences between types of fats and role in diet (mono on saturated fat fatty acids, saturated fatty acids, trans fats): R Food sources of sodium in salt and healthy modifications for heart health in kidney health: R V R/V Vitamins and minerals: R V N/R Healthy plate method concept: R Physical activity: Benefits a precaution: R Patient Instructions: Continue working on balancing meals, choosing whole grain foods and low fat cooking methods overnight oats as midafternoon snack Coding Level of Care Code Nutr Indiv Subseq (60519) Diagnoses Hepatic steatosis K76.0 Time Spent (min) 20
[2024-10-06 11:41] VITALS: BMI 24.3
== END 2024-10-06 11:59 | disposition home or self-care (01) ==
LOC: HO.ENCR 11:40
PROVIDERS: PCP Internal Medicine; Visit Provider Dietitian, Registered
DX: K76.0 Fatty (change of) liver, not elsewhere classified (principal)

== ENCOUNTER → 2024-10-06 11:39 | Outpatient (BNVA) | payer OTHER, SELFPAY | PROVIDERS: PCP Internal Medicine; Visit Provider Dietitian, Registered | DX: K76.0 Fatty (change of) liver, not elsewhere classified (principal) | CPT/HCPCS: 97803 ==

== ENCOUNTER 2024-10-13 15:52 | Outpatient (AMB) | payer MEDICAID, SELFPAY ==
--- NOTE | 2024-10-13 16:01 | MHC.OFFVIS ---
Vital Signs 10/13/24 16:02 Height 5 ft 3 in Weight 136 lb 10.986 oz BMI 24.2 BP 107/65 Blood Pressure Location Lt brachial Position Sitting Pulse 57 Intake Visit Reasons: 3 months f/u GERD, IBS Intake Note: Cleo presents in the office as a 3 month follow up. CC: She states that she has some stomach pains and she is not sure if it is due to her having a hernia. Her bowel movements are also irregular. Pains used to be in the LUQ but now are in the epigastric region. 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 Reports epigastric pain ongoing x few months. Assoc with nausea and hiccups. Better while sticking to low FODMAP diet. Appetite fluctuates. Takes omeprazole only PRN but does help when she does take it. Another issue is pressure sensation in rectum - worsens on constipation and straining. Sometimes blood on wiping. NO hx of FB insertion or anal trauma. Recently was taking fiber but that caused her to have diarrhea so holding that for now. 10/13/24: Here for follow up. Reports no further rectal pressure. Says likely triggered by straining and had prolapsed out. Now she is back to baseline. No further rectal pain or pressure. No rectal bleeding. Nausea is better. Reports occ epigastric pain but famotidine helps. Takes it at least 3-4 times a week. Overall, doing much better. Says low FODMAP diet helped her the most. In the past 1 month, she has been eating out more as she recently moved houses and her kitchen is not set up yet, so definitely notices a change in her symptoms. Plans to go back to low FODMAP diet later this month. [facility] Medical History Hepatic steatosis Vitamin D deficiency Overweight (BMI 25.0-29.9) Attention deficit hyperactivity disorder (ADHD) Allergic rhinitis Environmental allergies Schizophrenia Elevated LFTs Migraines Surgical History Hx of wisdom tooth extraction History of appendectomy Family History Mother No problems noted. Father No problems noted. Social History Housing: House Alcohol intake: never Patient Tobacco Use Status: Never used Tobacco Tobacco use type: Cigarette e-Cigarette/Vaping Use: Never Used Second Hand Smoke Exposure: Yes Substance Use Type: Marijuana service: No Current occupational status: student Cognitive needs: No Hearing needs: No Vision needs: Yes (Glasses) Female Reproductive History Menstrual Age of Menarche: 12 Review of Systems Const All systems reviewed & are unremarkable except as noted in HPI and below Physical Exam Vital Signs: Last Vital Signs Pulse 57 10/13/24 16:02 BP 107/65 10/13/24 16:02 BMI result Body Mass Index 24.2 No apparent distress Nonicteric Abdomen soft, nondistended rectal exam (Casey Lowery RN present as phlebotomy support tech) - no external hemorrhoids or anal tag, minimal internal hemorrhoids appreciated on rdigital exam, no blood on gloved finger. Good anal tone. Appropriate pelvic floor descent on bear down. Alert and oriented x3, normal gait Assessment & Plan Assessment & Plan (1) IBS (irritable bowel syndrome): Code(s): K58.9 - Irritable bowel syndrome, unspecified Category: Medical (2) Constipation: Code(s): K59.00 - Constipation, unspecified Category: Medical Qualifiers: Constipation type: unspecified constipation type Qualified Code(s): K59.00 - Constipation, unspecified (3) Abdominal pain: Code(s): R10.9 - Unspecified abdominal pain Category: Medical Plan 1. Dyspepsoa Reviewed with the pt that based on UGIS does not appear to have a significant relfux however has a small HH which could be predisposing. Good response to famotidine 20 which she should continue. Encouraged to take daily since sx present >50% of the time. 2. IBS-C Reviewed to take fiber in moderation. Increase hydration. OK to add senna or miralax if no BM for 3 days. low FODMAP diet reviewed and a handout provided as well. Previously has noted good response to fodmap diet and looking forward to going back to it. 3. Rectal discomfort Resolved. Was likely a prolapsed hemorrhoid in the context of severe constipation and straining. No red flags on HARIS today. Follow up 1 year Coding Level of Care Code Est Pt Level 4 (99724) Diagnoses IBS (irritable bowel syndrome) K58.9 Constipation, unspecified constipation type K59.00 Constipation type: unspecified constipation type Abdominal pain R10.9
[2024-10-13 16:02] VITALS: BP 107/65; PULSE 57; BMI 24.2
== END 2024-10-13 16:34 | disposition home or self-care (01) ==
LOC: HO.HGI 15:53
PROVIDERS: PCP Internal Medicine; Visit Provider Internal Medicine
DX: K58.9 Irritable bowel syndrome, unspecified (principal); K59.00 Constipation, unspecified; R10.9 Unspecified abdominal pain
CPT/HCPCS: 99214

== ENCOUNTER → 2024-10-13 15:52 | Outpatient (BNVA) | payer OTHER, SELFPAY | PROVIDERS: PCP Internal Medicine; Visit Provider Internal Medicine | DX: K21.9 Gastro-esophageal reflux disease without esophagitis (principal); K58.9 Irritable bowel syndrome, unspecified; K59.00 Constipation, unspecified; R10.9 Unspecified abdominal pain | CPT/HCPCS: 99212 ==

== ENCOUNTER 2024-12-02 09:03 | Outpatient (REF) | payer OTHER, SELFPAY ==
[2024-12-16 14:14] LABS: Anti Nuclear Antibody Screen NEGATIVE (NEGATIVE)
== END 2024-12-02 09:04 | disposition home or self-care (01) ==
LOC: HO.LAB 09:03
PROVIDERS: PCP Internal Medicine; Visit Provider Advanced Practice Midwife
DX: Z01.84 Encounter for antibody response examination (principal); N92.6 Irregular menstruation, unspecified; M25.50 Pain in unspecified joint
CPT/HCPCS: 36415; 84702; 85652; 86038; 86140; 86431

== ENCOUNTER 2024-12-27 15:49 | Outpatient (AMB) | payer OTHER, SELFPAY ==
[2024-12-27 13:57] VITALS: BP 112/68; PULSE 71; TEMP 36.3; O2SAT 99; BMI 25.7
--- NOTE | 2024-12-27 13:57 | A.OFFPC_ITS ---
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 Accompanied by: Self / Same As Patient Allergies peanut Allergy (Severe, Verified 12/27/24 13:58) Nausea and Vomiting Seasonal Allergies Allergy (Severe, Verified 12/27/24 13:58) Eye Swelling walnut Allergy (Severe, Verified 12/27/24 13:58) Difficulty Swallowing peach Allergy (Mild, Verified 12/27/24 13:58) Itching sesame seed Allergy (Mild, Verified 12/27/24 13:58) Unknown grass pollen-perennial rye, standar Allergy (Unknown, Verified 12/27/24 13:58) Cough topiramate Adverse Reaction (Mild, Verified 12/27/24 13:58) dizzy Medication List - Last Reconciled 12/27/24 by Merle Burgess PA-C famotidine 20 mg PO BEDTIME 90 days ferrous sulfate 325 mg PO DAILY fexofenadine 180 mg PO DAILY fluticasone propionate 50 mcg/actuation 1 spray intranasal DAILY PRN olanzapine 10 mg PO BEDTIME psyllium husk (Daily Fiber) 0.4 grams PO BEDTIME Tobacco use date assessed: 12/27/24 Dental Screening Dental Screen Date: 12/27/24 Did you have a dental visit in the last 12 months?: No Did you have a dental problem in the last 6 months where you did not have access to dental care?: No HPI f/u mental health HPI Details 24-year-old female with past medical his tory of migraine, schizophrenia, ADHD, GERD, constipation, IBS, hepatic steatosis last seen 09/2024 coming in for follow up. In review of the notes, patient was seen by GI 10/2024 continued on Famotidine, trial low FODMAP diet and follow up in one year. Presenting with acid reflux and fatty liver. The patient experiences heartburn and has been using famotidine for symptom relief. 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 She reports the palpittions were bad two months ago and was having heart racing almost daily but symptoms have since resolved. She continues to follow with [facility] and was started on Olanzapine. [facility] Medical History Hepatic steatosis Vitamin D deficiency Overweight (BMI 25.0-29.9) Attention deficit hyperactivity disorder (ADHD) Allergic rhinitis Environmental allergies Schizophrenia Elevated LFTs Migraines Surgical History Hx of wisdom tooth extraction History of appendectomy Family History Mother Cancer Father No problems noted. Social History Housing: House Alcohol intake: never Patient Tobacco Use Status: Never used Tobacco Tobacco use type: Cigarette e-Cigarette/Vaping Use: Never Used Second Hand Smoke Exposure: Yes Substance Use Type: Marijuana service: No Current occupational status: student Cognitive needs: No Hearing needs: No Vision needs: Yes (Glasses) Female Reproductive History Menstrual Age of Menarche: 12 Questionnaire PHQ-9 Over the last 2 weeks, how often have you been bothered by any of the following problems? 1. Little interest or pleasure in doing things: not at all 2. Feeling down, depressed, or hopeless: several days 3. Trouble falling or staying asleep, or sleeping too much: nearly every day 4. Feeling tired or having little energy: nearly every day 5. Poor appetite or overeating: not at all 6. Feeling bad about yourself - or that you are a failure or have let yourself or your family down: not at all 7. Trouble concentrating on things, such as reading the newspaper or watching television: not at all 8. Moving or speaking so slowly that other people could have noticed. Or the opposite - being so fidgety or restless that you have been moving around a lot more than usual: not at all 9. Thoughts that you would be better off or of hurting yourself in some way: not at all Total score: 7 Depression Screening Interpretation: Positive Depression Screening Follow-up: Existing condition and In treatment Depression Screening Done: Yes Source: Developed by Drs. Gus LAurelia Beaulieu Kurt Kroenke and colleagues, with an educational shoaib from [employer]. Thrive Questionnaire Date Thrive assessed: 12/27/24 I am a: Patient Within the past 12 months, did the food you bought not last and you didn't have the money to get more?: Never true Within the past 12 months, did you worry whether your food would run out before you got money to buy more?: Never true Do you have trouble paying for medicines?: No Do you have trouble getting transportation to medical appointments?: No Do you have trouble paying your heating and electricity bill?: No Do you have trouble taking care of your child, family member or friend?: No Do you have trouble with day-to-day activities such as bathing, preparing meals, shopping, managing finances, etc.?: No Are you currently unemployed and looking for a job?: No Are you interested in more education?: No THRIVE Score: 0 AUDIT C Alcohol Use Questionnaire (AUDIT-C) 1. How often do you have a drink containing alcohol?: Monthly or less 2. How many drinks containing alcohol do you have on a typical day when you are drinking?: 1 or 2 3. How often do you have six or more drinks on one occasion?: Less than monthly Total Score: 2 KANE-7 AMB Questionnaire KANE-7 Date KANE - 7 assessed: 12/27/24 Feeling nervous, anxious, or on edge: 0 = Not at all Not being able to stop or control worryin = Not at all Worrying too much about different things: 0 = Not at all Trouble relaxin = Not at all Being so restless that it is hard to sit still: 0 = Not at all Becoming easily annoyed or irritable: 0 = Not at all Feeling afraid as if something awful might happen: 0 = Not at all Total KANE-7 score (0-4 normal; 5-9 mild; 10-14 moderate; 15-21 severe): 0 Source: Developed by Drs. Gus Sandoval, Balaji Ibrahim and colleagues, with an educational shoaib from [employer]. Review of Systems Const Denies body aches, Denies chills, Denies fever(s), Denies headache(s) and Denies poor appetite Eyes Reports no additional complaints ENT Denies dysphagia, Denies dizziness, Denies headache(s) and Denies odynophagia Card Denies chest pain, Denies syncope, Denies edema, Denies irregular heart rhythm, Denies lightheadedness and Denies dyspnea Resp Denies cough and Denies dyspnea GI Denies abdominal pain, Denies constipation, Denies dysphagia, Denies diarrhea, Denies nausea, Denies odynophagia and Denies vomiting Reports no additional complaints Musc Reports no additional complaints and Denies abnormal gait Skin/Breast Reports system reviewed and no additional complaints, except as documented Neuro Denies abnormal gait, Denies dizziness, Denies syncope and Denies headache(s) Psych Reports no additional complaints Physical exam (Primary Care) Vital Signs: Last Vital Signs Temp 97.3 F 12/27/24 13:57 Pulse 71 12/27/24 13:57 BP 112/68 12/27/24 13:57 Pulse Ox 99 12/27/24 13:57 Oxygen Delivery Method Room Air 12/27/24 13:57 BMI result Body Mass Index 25.7 Tobacco/Smoking Status: Tobacco use Status Tobacco use date assessed 12/27/24 12/27/24 13:59 Patient Tobacco Use Status Never used Tobacco 12/27/24 13:59 Tobacco use type Cigarette 12/27/24 13:59 e-Cigarette/Vaping Use Never Used 12/27/24 13:59 PHQ-9: PHQ-9 Score PHQ-9: Total score 7 12/27/24 16:15 Depression Screening Interpretation: Positive Depression Screening Follow-up: Existing condition and In treatment Thrive Assessment: Date of Thrive Assessment Date Thrive assessed 09/20/24 12/27/24 15:50 Const General: cooperative, healthy appearing, comfortable and no acute distress Orientation/consciousness: patient oriented x3 HENMT Head: Yes normocephalic Ears: hearing grossly normal bilaterally General nose exam: Normal external nose present Eyes General: appearance normal, both eyes and all related structures Conjunctivae: conjunctivae normal Neck Neck: Yes full ROM and Yes no lymphadenopathy Resp Effort & Inspection: normal respiratory effort Auscultation: clear to auscultation bilaterally, no crackles, no rales, no rhonchi and no wheezes Cardio Rate: regular rate Rhythm: regular rhythm Skin General skin exam: no rashes or lesions noted Neuro General: patient oriented x3 Gait exam (Neuro): Normal gait present Extrem General: Yes normal to inspection, Yes full ROM and No edema Psych Affect: normal affect Attitude: cooperative Insight: Good insight present (Psych) Judgement: Good judgement present (Psych) Coding Level of Care Code Est Pt Level 3 (96120) Diagnoses Schizophrenia, unspecified type F20.9 Schizophrenia type: unspecified Hepatic steatosis K76.0 IBS (irritable bowel syndrome) K58.9 Gastroesophageal reflux disease without esophagitis K21.9 Esophagitis presence: without esophagitis Palpitations R00.2 Assessment & Plan Assessment & Plan (1) Schizophrenia: Code(s): F20.9 - Schizophrenia, unspecified Category: Medical Qualifiers: Schizophrenia type: unspecified Qualified Code(s): F20.9 - Schizophrenia, unspecified Plan: Patient has a history of schizophrenia and is following with [facility]. She feels good on the olanzapine 10 mg and plans to increase to 12.5 in the next few weeks. Continue to follow with counselor and psychiatrist (2) Hepatic steatosis: Code(s): K76.0 - Fatty (change of) liver, not elsewhere classified Category: Medical Plan: Healthy diet and regular exercise is encouraged. Continue to follow with GI. (3) IBS (irritable bowel syndrome): Code(s): K58.9 - Irritable bowel syndrome, unspecified Category: Medical Plan: Patient has IBS-C recommend adding fiber supplement to diet and increasing water intake. Continue to follow with GI (4) GERD (gastroesophageal reflux disease): Code(s): K21.9 - Gastro-esophageal reflux disease without esophagitis Category: Medical Qualifiers: Esophagitis presence: without esophagitis Qualified Code(s): K21.9 - Gastro-esophageal reflux disease without esophagitis Plan: Avoid trigger foods such as citrus, tomato products, soda, caffeine, spicy foods and other foods that may be irritating to your stomach. Avoid laying flat 3-4 hours after eating and elevate the head of the bed 30 degrees to prevent acid from moving into the esophagus. Continue on famotidine as needed. Continue to follow with GI. (5) Palpitations: Code(s): R00.2 - Palpitations Category: Medical Plan: Palpitations have since resolved and Holter monitors have been negative in the past with recorded events correlating with normal sinus rhythm. She will continue to monitor her symptoms and if they become persistent to reach out to the office and consider additional Holter monitor Plan This note was constructed using voice recognition software. While every effort has been made to ensure accuracy and trademark paralegal, still areas may have been included sometimes these areas may affect the content or meeting of the given symptoms. Total time spent caring for the patient today was 20 minutes. This includes time spent before the visit reviewing the chart, time spent during the visit, and time spent after the visit and documentation. Patient was informed and verbally consented to the use of an ambient scribe for clinic note documentation during this visit.
== END 2024-12-27 16:44 | disposition home or self-care (01) ==
LOC: HO.HMCH 15:50
PROVIDERS: PCP Internal Medicine
DX: F20.9 Schizophrenia, unspecified (principal); K76.0 Fatty (change of) liver, not elsewhere classified; K58.9 Irritable bowel syndrome, unspecified; K21.9 Gastro-esophageal reflux disease without esophagitis; R00.2 Palpitations

== ENCOUNTER → 2024-12-27 15:49 | Outpatient (BNVA) | payer OTHER, SELFPAY | PROVIDERS: PCP Internal Medicine | DX: K76.0 Fatty (change of) liver, not elsewhere classified (principal); F20.9 Schizophrenia, unspecified; K58.9 Irritable bowel syndrome, unspecified; K21.9 Gastro-esophageal reflux disease without esophagitis; R00.2 Palpitations | CPT/HCPCS: 99212 ==

== ENCOUNTER 2025-03-16 15:17 | Outpatient (REF) | payer OTHER, SELFPAY ==
[2025-03-16 16:48] LABS: MANUAL DIFF FLAG NO
[2025-03-16 17:10] LABS: Hematocrit 39.7 % (37.0-47.0); Hemoglobin 13.0 g/dl (12.0-16.0); Imm Gran Abs Auto 0.02 X10*3/uL (0.00-0.03); Imm Gran Pct Auto 0.3 % (0.0-0.4); Lymphocytes Absolute Auto 2.5 X10*3/uL (1.2-4.9); Mean Corpuscular HGB Conc 32.7 g/dl (31.0-35.0); Mean Corpuscular Hemoglobin 29.1 pg (27.0-33.0); Mean Corpuscular Volume 88.8 fL (80.0-98.0); NRBC Abs Auto 0.000 X10*3/uL (0.0-0.012); NRBC Pct Auto 0.0 /100WBC (0.0-0.2); Platelet Count 358 X10*3/uL (160-400); Red Blood Count 4.47 X10*6/uL (4.20-5.50); White Blood Count 8.0 X10*3/uL (4.8-10.8)
[2025-03-16 17:21] LABS: INTERNATIONAL NORM RATIO 0.9 (0.9-1.1); Prothrombin Time 10.7 SEC (11.2-13.5)
[2025-03-16 17:35] LABS: Appearance Urine Clear; Glucose Urine UA Negative (Negative); PH 7.0 (5.0-9.0); Specific Gravity - Urine 1.010 (1.005-1.025)
[2025-03-16 17:40] LABS: Anion Gap 12 (12-20); Blood Urea Nitrogen 10 mg/dL (9-16); Calcium 9.3 mg/dL (8.4-10.2); Carbon Dioxide 27 mmol/L (22-29); Chloride 107 mmol/L (96-108); Estimated Glomerular Filt Rate > 60; Potassium 4.5 mmol/L (3.3-5.1); Sodium 141 mmol/L (135-145)
[2025-03-20 20:18] LABS: CK-BB None Detected (None Detected); CK-MB 0 % (<5); CK-MM 100 % (95-100); Creatine Kinase,Total,Serum 109 U/L (20-239)
== END 2025-03-16 15:18 | disposition home or self-care (01) ==
LOC: HO.LAB 15:17
DX: R00.2 Palpitations (principal); R07.9 Chest pain, unspecified; I49.1 Atrial premature depolarization
CPT/HCPCS: 36415; 80048; 81003; 82552; 84443; 85025; 85610; 99212

== ENCOUNTER 2025-03-16 15:17 | Outpatient (AMB) | payer OTHER, SELFPAY ==
--- NOTE | 2025-03-16 15:31 | A.OFFPC_ITS ---
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 Accompanied by: Self / Same As Patient Allergies peanut Allergy (Severe, Verified 03/16/25 15:50) Nausea and Vomiting Seasonal Allergies Allergy (Severe, Verified 03/16/25 15:50) Eye Swelling walnut Allergy (Severe, Verified 03/16/25 15:50) Difficulty Swallowing peach Allergy (Mild, Verified 03/16/25 15:50) Itching sesame seed Allergy (Mild, Verified 03/16/25 15:50) Unknown grass pollen-perennial rye, standar Allergy (Unknown, Verified 03/16/25 15:50) Cough topiramate Adverse Reaction (Mild, Verified 03/16/25 15:50) dizzy Medication List - Last Reconciled 03/16/25 by JESUS Barillas famotidine 20 mg PO BEDTIME 90 days ferrous sulfate 325 mg PO DAILY fexofenadine 180 mg PO DAILY fluticasone propionate 50 mcg/actuation 1 spray intranasal DAILY PRN olanzapine 10 mg PO BEDTIME psyllium husk (Daily Fiber) 0.4 grams PO BEDTIME Tobacco use date assessed: 03/16/25 Dental Screening Dental Screen Date: 03/16/25 Did you have a dental visit in the last 12 months?: Yes Did you have a dental problem in the last 6 months where you did not have access to dental care?: No Was dental information given to patient?: Patient has dentist HPI follow up Chest palpitations HPI Details The patient is a 24 year old female presenting with a follow-up for chest pain. She reports experiencing three episodes of chest pain within the last month, described as a very tight, pinching, and almost itchy sensation that takes her breath away. The first episode lasted about an hour, the second was longer, and the most recent episode occurred last weekend, starting Friday night and lasting through the weekend with decreasing intensity. During the most recent episode, the pain was so severe on the first day that she could not move and remained in bed; she notes the pain was worsened by movement. Associated symptoms included dizziness with the first episode, but she does not recall nausea with the most recent one. She denies radiation of the pain down her arm but feels sensations like vee in her arm. She denies vomiting but does experience nausea separately from the chest pain episodes. The pain started while she was resting and reading a book. She reports experiencing palpitations throughout the day, separate from the chest pain episodes, which vary in intensity. The patient has a family history of heart problems but does not know the specific details. She has had a Holter monitor in the past, but it was several months after her symptoms began due to insurance issues, and the timing was not optimal for capturing an event, per patient. [facility] Medical History Hepatic steatosis Vitamin D deficiency Overweight (BMI 25.0-29.9) Attention deficit hyperactivity disorder (ADHD) Allergic rhinitis Environmental allergies Schizophrenia Elevated LFTs Migraines Surgical History Hx of wisdom tooth extraction History of appendectomy Family History Mother Cancer Father No problems noted. Social History Housing: House Alcohol intake: never Patient Tobacco Use Status: Never used Tobacco Tobacco use type: Cigarette e-Cigarette/Vaping Use: Never Used Second Hand Smoke Exposure: Yes Substance Use Type: Marijuana service: No Current occupational status: student Cognitive needs: No Hearing needs: No Vision needs: Yes (Glasses) Female Reproductive History Menstrual Age of Menarche: 12 Questionnaire Thrive Questionnaire Date Thrive assessed: 03/16/25 I am a: Patient What is your living situation today?: I have a steady place to live Within the past 12 months, did the food you bought not last and you didn't have the money to get more?: Never true Within the past 12 months, did you worry whether your food would run out before you got money to buy more?: Never true Do you have trouble paying for medicines?: I choose not to answer this question Do you have trouble getting transportation to medical appointments?: No Do you have trouble paying your heating and electricity bill?: No Do you have trouble taking care of your child, family member or friend?: No Do you have trouble with day-to-day activities such as bathing, preparing meals, shopping, managing finances, etc.?: I choose not to answer this question Are you currently unemployed and looking for a job?: No Are you interested in more education?: I choose not to answer this question Please select the resources that you would like help with: None Currently or been in a relationship where the following occur: I choose not to answer THRIVE Score: 0 KANE-7 AMB Questionnaire KANE-7 Date KANE - 7 assessed: 12/27/24 Source: Developed by Drs. Gus Sandoval, Aurelia Rice, Balaji Mason and colleagues, with an educational shoaib from [employer]. Review of Systems Const Details: - General: Reports inability to move during severe chest pain episodes. - Cardiovascular: Reports intermittent chest pain, described as a tight pinch, and palpitations throughout the day. Denies radiation of pain down the arm. - Respiratory: Reports shortness of breath associated with chest pain. - Gastrointestinal: Reports nausea, which occurs separately from the chest pain. Denies vomiting. - Neurological: Reports dizziness associated with a past chest pain episode. Reports feeling vee in her arm. Denies headache(s) Eyes Denies loss of vision ENT Denies vertigo, Denies dizziness, Denies headache(s) and Denies sore throat Card Reports chest pain (intermittent taking her breath away), Denies leg edema and Denies lightheadedness Resp Denies cough, Denies hemoptysis and Denies wheezing GI Denies abdominal pain, Denies melena, Denies constipation, Denies diarrhea and Denies vomiting Denies urinary frequency, Denies dysuria and Denies urinary urgency Musc Denies arthralgias, Denies joint swelling, Denies numbness and Denies tingling Neuro Denies Abnormal speech present, Denies behavioral changes, Denies vertigo, Denies dizziness, Denies headache(s), Denies loss of vision, Denies memory loss, Denies numbness and Denies tingling Psych Reports anxiety, Denies behavioral changes, Denies depression, Denies memory loss and Denies panic attacks Aquilino/Lymph Denies easy bleeding and Denies easy bruising Aller/Immun Denies wheezing Physical exam (Primary Care) Vital Signs: Last Vital Signs Pulse 78 12/10/25 15:32 Resp 18 03/16/25 15:32 BP 110/68 03/16/25 15:32 Pulse Ox 99 03/16/25 15:32 Oxygen Delivery Method Room Air 03/16/25 15:32 BMI result Body Mass Index 25.7 Tobacco/Smoking Status: Tobacco use Status Tobacco use date assessed 03/16/25 03/16/25 15:44 Patient Tobacco Use Status Never used Tobacco 03/16/25 15:34 Tobacco use type Cigarette 03/16/25 15:34 e-Cigarette/Vaping Use Never Used 03/16/25 15:34 Thrive Assessment: Date of Thrive Assessment Date Thrive assessed 03/16/25 03/16/25 15:44 Currently or been in a relationship where the following occur: I choose not to answer Const General: healthy appearing, no acute distress, alert and awake Nutritional Appearance: well nourished Orientation/consciousness: oriented to person, oriented to place and oriented to time HENMT Ears: TM's normal bilaterally General nose exam: Normal nasal mucous membranes and turbinates present Eyes Conjunctivae: conjunctivae normal Sclerae: sclerae normal Pupils: Equal, round and reactive pupils present Neck Neck: Yes no lymphadenopathy and Yes no JVD Thyroid: Thyroid normal Carotids: no bruits Resp Effort & Inspection: normal respiratory effort and not tachypneic Auscultation: no crackles, no rales, no rhonchi and no wheezes Cardio Rate: regular rate Rhythm: regular rhythm Heart sounds: S1 normal heart sound present, S2 normal heart sound present, no murmurs and normal S1 and S2 GI Palpation (GI): Soft to palpation, nontender, no hepatomegaly and no splenomegaly Auscultation: normal bowel sounds Skin General skin exam: no rashes or lesions noted and dry skin Neuro General: oriented to person, oriented to place and oriented to time Cranial nerves: Yes Equal, round and reactive pupils present Speech: No Abnormal speech present Gait exam (Neuro): Normal gait present Motor exam (neuro): no tremor noted Extrem Right upper extremity: full ROM Left upper extremity: full ROM Right lower extremity: full ROM; no edema Left lower extremity: full ROM; no edema Psych Mental Status: mental status grossly normal Speech and movement: Normal speech and movement present Affect: normal affect Attitude: cooperative Thought process: Normal thought process present Coding Level of Care Code Est Pt Level 4 (20749) Diagnoses Chest pain, unspecified type R07.9 Chest pain type: unspecified Palpitations R00.2 Ectopic atrial beats I49.1 Time Spent (min) 31 Assessment & Plan Assessment & Plan (1) Chest pain: Code(s): R07.9 - Chest pain, unspecified Category: Medical Qualifiers: Chest pain type: unspecified Qualified Code(s): R07.9 - Chest pain, unspecified (2) Palpitations: Code(s): R00.2 - Palpitations Category: Medical (3) Ectopic atrial beats: Code(s): I49.1 - Atrial premature depolarization Category: Medical Plan The patient presents with recurrent, severe chest pain. An in-office EKG was performed and revealed inverted P waves, which is an abnormal finding. Due to the EKG results and the nature of her symptoms, a full cardiac workup is warranted to rule out a cardiac etiology. An urgent referral to cardiology has been placed, and an urgent echocardiogram has been ordered. Non-fasting blood work to check electrolytes has also been ordered for the patient to complete today. The patient was strongly advised to go to the emergency room if she experiences another episode of severe chest pain. She was also advised to try to reduce stress. Orders: Orders CK, Total+Isoenzymes, Serum Today R07.9 - Chest pain, unspecified TSH reflex Free T4 Today R07.9 - Chest pain, unspecified Complete Blood Count Auto Diff Today R07.9 - Chest pain, unspecified Basic Metabolic Panel Today R07.9 - Chest pain, unspecified UA CC w/rflx Micro + Cult Today R07.9 - Chest pain, unspecified Prothrombin Time INR Today R07.9 - Chest pain, unspecified CA echo transthoracic complete Today R07.9 - Chest pain, unspecified Referrals Cardiology Referral I49.1 - Atrial premature depolarization, R07.9 - Chest pain, unspecified
[2025-03-16 15:32] VITALS: BP 110/68; PULSE 78; RESP 18; O2SAT 99; BMI 25.7
== END 2025-03-16 16:42 | disposition home or self-care (01) ==
LOC: HO.HMCH 15:18
PROVIDERS: PCP Internal Medicine
DX: R07.9 Chest pain, unspecified (principal); R00.2 Palpitations; I49.1 Atrial premature depolarization

== ENCOUNTER → 2025-03-22 10:46 | Outpatient (REF) | payer OTHER, SELFPAY ==
--- NOTE | 2025-03-22 10:49 | CA_ITS ---
Transthoracic Echocardiogram Patient (Last, First, Middle): Cleo Schafer, Gender: F Date of : 2000 Age: 24 Procedure Date: 03/22/2025 Procedure Type: Transthoracic Echocardiogram Location: OP Height: 160.02 cm Weight: 65.77 kg BSA: 1.69 m2 Heart Rate: 69 bpm BP: 110 / 68 mmHg Support Service Tech: SB Referring MD: Kurt DENNISP-C Inspector Bicycle: Kishore Pan MD Symptoms: R07.9 - Chest pain, unspecified Study Quality: Adequate ECG Rhythm: Sinus Conclusions: - Normal study Findings Left Ventricle Normal left ventricular size, thickness, and systolic function. The visually estimated ejection fraction is between 60-65%. Diastolic function is normal for age. Right Ventricle Normal right ventricular cavity size and systolic function. Atria Both atria are normal in size. There is no evidence of interatrial shunt. Aortic Valve Normal aortic valve structure and function. There is no aortic valve stenosis. There is no aortic valve regurgitation. Mitral Valve Normal mitral valve structure and function. There is trace mitral valve regurgitation. There is no mitral valve stenosis. Pulmonic Valve The pulmonic valve is likely normal. Tricuspid Valve Normal tricuspid valve structure. Tricuspid regurgitation envelope is inadequate for calculation of right ventricular systolic pressure. Normal right atrial pressure. Great Vessels All visible segments of the aorta are normal in size. The pulmonary artery was not well visualized. There is no dilatation of the ascending aorta measuring 2.40 cm. Venous The inferior vena cava is normal in size and collapses greater than 50% with inspiration. Pericardium/Pleural There is no evidence of pericardial effusion. Prior Study Comparison No prior study available for comparison. Measurements 2D Linear Measurements IVSd: 0.71 0.6-0.9/0.6-1.0 cm LVIDd: 4.44 3.9-5.3/4.2-5.9 cm LVIDd Index: 2.63 2.4-3.2/2.2-3.1 cm/m2 LVIDs: 3.06 2.0-3.6 cm LVPWd: 0.81 0.7-1.1 cm Ao Root: 2.50 2.1-3.5 cm LA Diam: 3.20 2.7-3.8/3.0-4.0 cm LAIDs Index: 1.89 1.5-2.3 cm/m2 LV Mass: 128.82 67-162/88-224 g LV Mass Index: 76.22 43-95/49-115 g/m2 LVOT Diam: 2.00 3.0+(-)1.3 cm 2D Systolic Function EF 4C: 66.50 >55% EF 2C: 63.00 >55% EF BiP: 64.50 >55% Mitral Valve MV Pk E: 1.06 MV PK A: 0.38 MV Decel Time: 150.00 E/A: 2.80 E'Lateral: 17.10 E'Medial: 12.80 E/E' Med: 8.30 E/E' Lat: 6.20 PHT: 44.00 MVA PHT: 5.00 Decel Dundy: 7.07 Aortic Valve AoV Pk Stephan: 1.22 AoV Pk Grad: 6.00 FAM: 3.17 LVOT LVOT Pk Stephan: 1.23 LVOT Mn Stephan: 0.85 LVOT VTI: 0.25 LVOT Pk Grad: 6.00 LVOT Mn Grad: 3.00 LVOT Diam: 2.00 LVOT Area: 3.14 Diastolic Function MV Pk E: 1.06 MV Pk A: 0.38 E/A: 2.80 E'Medial: 12.80 E/E' Med: 8.30 E' Laterial: 17.10 E/E' Lat: 6.20 Right Ventricle TAPSE (mm): 21.70 TVS' Stephan: 14.90 Tricuspid Valve TR Pk Stephan: 1.65 TR Pk Grad: 11.00 RA Press: 3.00 Great Vessels Aorta Ao Root-2D: 2.50 2.0-3.7 cm Ao Asc: 2.40 2.1-3.4 cm Ao Arch: 2.00 Ao Desc: 1.20 Pulmonary Veins Pulm Vein S/D 0.70 Pulmonary Valve PV Pk Stephan: 0.99 Peak PV Grad: 4.00 Updated in Other Vendor System with Status of Final Kishore Pan MD electronically signed on 03/22/2025 1:06:11 PM with status of Final
== END ==
LOC: HO.CARD 10:46
PROVIDERS: PCP Internal Medicine
DX: I49.8 Other specified cardiac arrhythmias (principal); R07.9 Chest pain, unspecified
CPT/HCPCS: 93306

== ENCOUNTER → 2025-03-22 10:49 | Outpatient (BNV) | payer OTHER, SELFPAY | PROVIDERS: PCP Internal Medicine; Visit Provider Internal Medicine Cardiovascular Disease | DX: R07.9 Chest pain, unspecified (principal) | CPT/HCPCS: 93306 ==